=== PATIENT | female | born 1960 ===

== ENCOUNTER 2017-11-14 11:00 | Inpatient (IN) | payer OTHER ==
--- NOTE | 2017-11-14 11:57 | ED PDOC ---
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 Patient reports she was diagnosed with gastritis 2 weeks ago with upper epigastric abdominal pain. patient was prescribed unknown antibiotics by primary care doctor and antibiotics has recently completed its course. Patient has reported having specific left sided abdominal pain in the last five days that is constant and worse with eater. Patient notes feeling nausea when eating and dizziness but no diarrhea. Patient denies any fever, chills, shortness of br eath, chest pain, diarrhea, vomiting, urinary symptoms, back pain, neck pain, headache, or any other complaints. Time/Duration: Other (a few days ago) Symptom Onset: Gradual Symptom Course: Unchanged Activities at Onset: Light <Callie Quispe - Last Filed: 11/17/17 08:21> <Haider Chamorro - Last Filed: 11/17/17 16:03> - General Chief Complaint: Abdominal Pain Time Seen by Provider: 11/14/17 11:27 Past Medical History - Provider Review Nursing Documentation Reviewed: Yes - Cardiac Hx Cardiac Disorders: No - Pulmonary Hx Respiratory Disorders: No - Neurological Hx Neurological Disorder: No - HEENT Hx HEENT Disorder: No - Renal Hx Renal Disorder: No - Endocrine/Metabolic Hx Endocrine Disorders: No - Hematological/Oncological Hx Blood Disorders: No - Integumentary Hx Dermatological Disorder: No - Musculoskeletal/Rheumatological Hx Musculoskeletal Disorders: No - Gastrointestinal Hx Gastrointestinal Disorders: Yes Hx Gastritis: Yes - Genitourinary/Gynecological Hx Genitourinary Disorders: No - Psychiatric Hx Psychophysiologic Disorder: No Hx Substance Use: No - Surgical History Hx Section: Yes Hx Hysterectomy: Yes <Callie Quispe - Last Filed: 11/17/17 08:21> Family/Social History - Physician Review Nursing Documentation Reviewed: Yes Family/Social History: Unknown Family HX Smoking Status: Never Smoked Hx Alcohol Use: No Hx Substance Use: No <Callie Quispe - Last Filed: 11/17/17 08:21> Allergies/Home Meds <Callie Quispe - Last Filed: 11/17/17 08:21> <Haider Chamorro - Last Filed: 11/17/17 16:03> Allergies/Adverse Reactions: Allergies No Known Allergies Allergy (Verified 11/14/17 11:18) Home Medications: Home Meds Medication Instructions Recorded Confirmed Unobtainable 11/14/17 11/14/17 Review of Systems - Physician Review All systems were reviewed & negative as marked: Yes - Review of Systems Constitutional: absent: Fevers, Night Sweats Respiratory: absent: SOB Cardiovascular: absent: Chest Pain Gastrointestinal: Abdominal Pain (+left sided abdominal pain), Nausea. absent: Diarrhea, Vomiting Genitourinary Female: absent: Urine Output Changes Musculoskeletal: absent: Back Pain, Neck Pain Neurological: Dizziness. absent: Headache <Callie Quispe - Last Filed: 11/17/17 08:21> Physical Exam - Physical Exam Narrative Physical Exam (Text): 11/14/17 11:58 Head: Atraumatic. Normocephalic. Eyes: PERRL. EOMI. Conjunctivae are not pale. ENT: Mucous membranes are moist and intact. Oropharynx is clear and symmetric. Neck: Supple. Full ROM. No JVD. No lymphadenopathy. Cardiovascular: Regular rate. Regular rhythm. No murmurs, rubs, or gallops. Distal pulses are 2+ and symmetric. Pulmonary/Chest: No evidence of respiratory distress. Clear to auscultation bilaterally. No wheezing, rales or rhonchi. Abdominal: Focal lower left quadrant abdominal pain with deep palpation but no rebound or gaurding. No epigastric pain currently. Back: No CVA tenderness. Extremities: No edema. No cyanosis. No clubbing. Full range of motion in all extremities. No calf tenderness. Skin: Skin is warm and dry. No petechiae. No purpura. Neurological: Alert, awake, and oriented to person, place, time, and situation. Normal speech. Psychiatric: Good eye contact. Normal interaction, affect, and behavior. Vital Signs Reviewed: Yes Vital Signs Temp Pulse Resp BP Pulse Ox 11/14/17 11:18 98.7 F 91 H 16 118/76 95 Temperature: Afebrile Blood Pressure: Normal Pulse: Tachycardic Respiratory Rate: Normal Appearance: Positive for: Well-Appearing, Non-Toxic, Comfortable Pain Distress: None Mental Status: Positive for: Alert and Oriented X 3 <Callie Quispe - Last Filed: 11/17/17 08:21> Vital Signs Temp Pulse Resp BP Pulse Ox 11/14/17 18:02 98 F 84 18 131/71 98 11/14/17 17:07 98 F 77 18 128/77 98 11/14/17 16:43 80 18 134/78 96 11/14/17 14:33 98 F 77 18 128/74 97 11/14/17 11:18 98.7 F 91 H 16 118/76 95 <TorreyfredyHaider L - Last Filed: 11/17/17 16:03> Medical Decision Making ED Course and Treatment: 11/14/17 11:54 Impression: 56 year old female presenting to the emergency department complaining of left abdominal pain after several weeks of epigastric pain. Differential Diagnosis included but are not limited to: gastroenteritis vs. diverticulitis vs. gastritis Plan: -- CT of Abdomen and Pelvis -- Labs -- Pepcid -- IV fluids -- Urinalysis -- Reassess and disposition Progress Notes: bartender helper at bedside for initial exam, approved by patient. Patient on exam with focal llq abdominal pain and mild epigastric pain. Based on persistence of pain and tenderness noted on exam, ct ordered. 11/14/17 14:49 Procedure: CT Abdomen and Pelvis with contrast Impression: There is a large irregular poorly defined hypodense mass in the right lobe of the liver adjacent to the gallbladder. This measures 47 x 52 x 73 mm in size. This does not have the features of hemangioma. There are no prior studies for comparison. Follow-up is recommended to rule out malignancy. Clinical correlation is suggested. 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 There are also densities in the gallbladder consistent with stones. Dictator: Javier Luis CT findings reviewed with patient with motor tune up specialist. Ultrasound ordered. Pain is persistent, but no rebound or guarding. Procedure: Abdomen Ultrasound Impression: Nodular hepatic contour; correlate clinically for cirrhosis. Heterogeneous hepatic parenchyma. Indeterminate 5.0 x 6.5 x 5.9 cm right hepatic lobe mass; malignant neoplasm must be excluded. Right-sided hydronephrosis. 2.8 x 2.6 x 3.0 cm right lower pole cyst. Gallstones and/or gallbladder wall calcifications. Gallbladder sludge. Gallbladder wall thickening/pericholecystic edema measuring approximately 4 mm. Negative sonographic Lockett's sign as assessed by the highway traffic control technician. Correlate clinically. Dictator: Amaris Baltazar MD I reviewed patient's labs, ct scan, and need for further evaluation of this. Differential diagnosis reviewed with patient. Airport Attendant present. Case d/w hospitalist service, Dr. Wilson accepts patient to her service. <Callie Quispe - Last Filed: 11/17/17 08:21> ED Course and Treatment: 11/17/17 16:03 I was not involved in the care of this patient. I am unable to take my name of this list on [employer]. I am signed it just to take it off my list. - Lab Interpretations Lab Results: 11/14/17 12:31 11/14/17 12:31 Lab Results 11/14/17 12:31: Hemoglobin A1c 7.1 H 11/14/17 12:31: Amylase 55, Lipase 130 11/14/17 12:31: Sodium 140, Potassium 3.8, Chloride 102, Carbon Dioxide 26, Anion Gap 16, BUN 11, Creatinine 0.5 L, Est GFR ( Amer) > 60, Est GFR (Non-Af Amer) > 60, Random Glucose 94, Calcium 9.2, Total Bilirubin 0.7, AST 37 H, ALT 33, Alkaline Phosphatase 241 H, Total Protein 8.1, Albumin 4.2, Globulin 3.9, Albumin/Globulin Ratio 1.1 11/14/17 12:31: Urine Color Yellow, Urine Appearance Clear, Urine pH 6.0, Ur Specific Nicasio >= 1.030, Urine Protein 30 H, Urine Glucose (UA) Negative, Urine Ketones Negative, Urine Blood Trace-lysed H, Urine Nitrate Negative, Urine Bilirubin Negative, Urine Urobilinogen 4.0 H, Ur Leukocyte Esterase Negative, Urine RBC 2 - 5, Urine WBC 0 - 2, Ur Epithelial Cells 4 - 5, Amorphous Sediment Few, Urine Bacteria Many, Urine Other Uyeast 11/14/17 12:31: WBC 10.1, RBC 4.24, Hgb 12.5, Hct 38.2, MCV 90.1, MCH 29.5, MCHC 32.7, RDW 12.1, Plt Count 322, MPV 8.9, Gran % 66.8, Lymph % (Auto) 20.1 L, [place] % (Auto) 11.3 H, Eos % (Auto) 1.6, Baso % (Auto) 0.2, Gran # 6.73 H, Lymph # (Auto) 2.0, [place] # (Auto) 1.1 H, Eos # (Auto) 0.2, Baso # (Auto) 0.02 - RAD Interpretation Radiology Orders: 11/14/17 11:53 ABD & PELVIS IV CONTRAST ONLY [CT] Stat 11/14/17 14:10 ABDOMEN COMPLETE [US] Stat - Medication Orders Current Medication Orders: Acetaminophen (Tylenol 325mg Tab) 650 mg PO Q4 PRN PRN Reason: Pain, Mild (1-3) Docusate Sodium (Colace) 100 mg PO BID [facility] Last Admin: 11/17/17 09:59 Dose: 100 mg Last Bowel Movement Document 11/17/17 09:59 SES (Rec: 11/17/17 09:59 SES [facility] [id number]) Last Bowel Movement Last Bowel Movement 11/14/17 Ceftriaxone Sodium (Rocephin 1 Gram Ivpb) 1 gm in 100 mls @ 100 mls/hr IVPB DAILY [facility]; Protocol Last Admin: 11/17/17 10:00 Dose: 100 mls/hr eMAR Start Stop Document 11/17/17 10:00 SES (Rec: 11/17/17 10:00 SES [id number]) Intravenous Solution Start Date 11/17/17 Start Time 10:00 End Date 11/17/17 End time 11:00 Total Infusion Time 60 Sodium Chloride (Sodium Chloride 0.45%) 1,000 mls @ 80 mls/hr IV .[id number] [facility] Stop: 11/18/17 08:00 Metronidazole (Flagyl) 500 mg PO Q8H IVONNE; Protocol Last Admin: 11/17/17 10:00 Dose: 500 mg Morphine Sulfate (Morphine) 1 mg IVP Q6H PRN PRN Reason: Pain, severe (8-10) Last Admin: 11/16/17 22:41 Dose: 1 mg MAR Pain Assessment Document 11/16/17 22:41 [facility] (Rec: 11/16/17 22:41 [id number]) Pain Reassessment Is this a pain reassessment? No Sleep Is patient sleeping during reassessment? No Presence of Pain Presence of Pain Yes Pain Scale Used Protocol: PSCALES Pain Scale Used Numeric Description Intensity of Pain at present 7 IVP Administration Document 11/16/17 22:41 [facility] (Rec: 11/16/17 22:41 [facility] [id number]) Charges for Administration # of IVP Administrations 1 Re-Assess: MAR Pain Assessment Document 11/16/17 23:41 [facility] (Rec: 11/17/17 07:43 [facility] [id number]) Pain Reassessment Is this a pain reassessment? No Sleep Is patient sleeping during reassessment? No Presence of Pain Presence of Pain No Ondansetron HCl (Zofran Inj) 4 mg IVP Q8H PRN PRN Reason: Nausea/Vomiting Oxycodone/Acetaminophen (Percocet 5/325 Mg Tab) 1 tab PO Q4H PRN PRN Reason: Pain, moderate (4-7) Stop: 11/20/17 15:30 Pantoprazole Sodium (Protonix Ec Tab) 40 mg PO 0600 IVONNE Last Admin: 11/17/17 05:32 Dose: 40 mg Discontinued Medications Enoxaparin Sodium (Lovenox) 40 mg SC DAILY [facility]; Protocol Last Admin: 11/15/17 10:19 Dose: 40 mg Subcutaneous Administrations Document 11/15/17 10:19 AJ (Rec: 11/15/17 10:19 [id number]) Injection Site MAR Injection Site Right Abdomen Charges for Administration # of Subcutaneous Administrations 1 Famotidine (Pepcid) 20 mg IVP STAT STA Stop: 11/14/17 11:54 Last Admin: 11/14/17 12:27 Dose: 20 mg IVP Administration Document 11/14/17 12:27 EAR (Rec: 11/14/17 12:27 EAR [id number]) Charges for Administration # of IVP Administrations 1 Sodium Chloride (Sodium Chloride 0.9%) 1,000 mls @ 100 mls/hr IV .Q10H IVONNE Last Admin: 11/17/17 01:15 Dose: 100 mls/hr eMAR Start Stop Document 11/17/17 01:15 [facility] (Rec: 11/17/17 01:15 [facility] [id number]) Intravenous Solution Start Date 11/17/17 Start Time 01:15 Metronidazole (Flagyl) 500 mg in 100 mls @ 100 mls/hr IV ONCE ONE; Protocol Stop: 11/14/17 17:19 Last Admin: 11/14/17 18:00 Dose: 100 mls/hr eMAR Start Stop Document 11/14/17 18:00 EAR (Rec: 11/14/17 18:00 EAR [id number]) Intravenous Solution Start Date 11/14/17 Start Time 18:00 End Date 11/14/17 End time 19:00 Total Infusion Time 60 Ceftriaxone Sodium (Rocephin 1 Gram Ivpb) 1 gm in 100 mls @ 200 mls/hr IVPB ONCE STA; Protocol Stop: 11/14/17 16:49 Last Admin: 11/14/17 17:01 Dose: 200 mls/hr eMAR Start Stop Document 11/14/17 17:01 EAR (Rec: 11/14/17 17:02 EAR [id number]) Intravenous Solution Start Date 11/14/17 Start Time 17:01 End Date 11/14/17 End time 17:35 Total Infusion Time 34 <Haider Chamorro - Last Filed: 11/17/17 16:03> - Scribe Statement The provider has reviewed the documentation as recorded by the Su Yanes All medical record entries made by the Abhilashibe were at my direction and personally dictated by me. I have reviewed the chart and agree that the record accurately reflects my personal performance of the history, physical exam, medical decision making, and the department course for this patient. I have also personally directed, reviewed, and agree with the discharge instructions and disposition <Callie Quispe - Last Filed: 11/17/17 08:21> Disposition/Present on Arrival - Present on Arrival Any Indicators Present on Arrival: No History of DVT/PE: No History of Uncontrolled Diabetes: No Urinary Catheter: No History of Decub. Ulcer: No History Surgical Site Infection Following: None - Disposition Have Diagnosis and Disposition been Completed?: Yes Disposition Time: 13:30 Patient Plan: Admission <Callie Quispe - Last Filed: 11/17/17 08:21> <Haider Chamorro - Last Filed: 11/17/17 16:03> - Disposition Diagnosis: Abdominal pain, Abdominal mass Disposition: HOSPITALIZED Patient Problems: Current Active Problems Problem Status Onset Abdominal pain Acute Abdominal mass Acute Condition: FAIR
[2017-11-14] MEDS: Sodium Chloride 0.9% 1,000 ML IV SCH ×2 (12:26→21:46)
[2017-11-14] MEDS ORDERED: Iohexol 350 MG/100 ML VIAL ONE (12:41)
[2017-11-14 12:45] LABS: ALB/GLOB RATIO 1.1 (1.1-1.8); ALBUMIN 4.2 g/dL (3.0-4.8); ALT/SGPT 33 U/L (7-56); AST/SGOT 37 U/L (14-36); BLOOD UREA NITROGEN 11 mg/dL (7-21); CALCIUM 9.2 mg/dL (8.4-10.5); GFR NON-AFRICAN AMERICAN > 60
[2017-11-14 12:48] LABS: BASO # 0.02 K/mm3 (0.0-2.0); BASO % 0.2 % (0.0-3.0); EOS # 0.2 (0.0-0.7); EOS % 1.6 % (1.5-5.0); GRAN # 6.73 (1.4-6.5); GRAN % 66.8 % (50.0-68.0); HEMOGLOBIN 12.5 g/dL (12.0-16.0); LYMPH % 20.1 % (22.0-35.0); MEAN CELL VOLUME 90.1 fl (80.0-105.0); MEAN CORPUSCULAR HEMOGLOBIN 29.5 pg (25.0-35.0); MEAN CORPUSCULAR HGB CONC 32.7 g/dl (31.0-37.0); MEAN PLATELET VOLUME 8.9 fl (7.0-11.0); MONO # 1.1 (0.1-0.6); MONO % 11.3 % (1.0-6.0); RBC 4.24 10^6/uL (3.5-6.1); RED CELL DISTRIBUTION WIDTH 12.1 % (11.5-14.5); WHITE BLOOD COUNT 10.1 10^3/ul (4.5-11.0)
[2017-11-14 12:51] LABS: URINE BILIRUBIN NEGATIVE (NEGATIVE); URINE BLOOD TRACE-LYSED (NEGATIVE); URINE GLUCOSE (UA) NEGATIVE (NEGATIVE); URINE LEUKOCYTE ESTERASE NEGATIVE Leu/uL (NEGATIVE); URINE PROTEIN 30 mg/dL (<30 mg/dL)
[2017-11-14 12:55] LABS: URINE COLOR YELLOW (YELLOW)
[2017-11-14 12:56] LABS: URINE APPEARANCE CLEAR (CLEAR)
[2017-11-14 12:59] LABS: URINE AMORPHOUS SEDIMENT FEW; URINE BACTERIA MANY (NEG); URINE WBC 0 - 2 /hpf (0-6)
--- NOTE | 2017-11-14 14:01 | CT ---
Date of service: 11/14/2017 PROCEDURE: CT Abdomen and Pelvis with contrast HISTORY: llq abdominal pain COMPARISON: None. TECHNIQUE: Contrast dose: 100 cc of Omni 350 Radiation dose: Total exam DLP = 845 mGy-cm. This CT exam was performed using one or more of the following dose reduction techniques: Automated exposure control, adjustment of the mA and/or kV according to patient size, and/or use of iterative reconstruction technique. FINDINGS: LOWER THORAX: Bibasilar linear infiltrates LIVER: There is a large irregular poorly defined hypodense mass in the right lobe of the liver adjacent to the gallbladder. This measures 47 x 52 x 73 mm in size. This does not have the features of hemangioma. There are no prior studies for comparison. Follow-up is recommended to rule out malignancy. Clinical correlation is suggested. 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 There are also densities in the gallbladder consistent with stones. PANCREAS: Unremarkable. No gross lesion or ductal dilatation. SPLEEN: Unremarkable. ADRENALS: Unremarkable. No mass. KIDNEYS AND URETERS: Unremarkable. No hydronephrosis. No solid mass. VASCULATURE: Unremarkable. No aortic aneurysm. BOWEL: Unremarkable. No obstruction. No gross mural thickening. APPENDIX: Normal appendix. PERITONEUM: Unremarkable. No free fluid. No free air. LYMPH NODES: Unremarkable. No enlarged lymph nodes. BLADDER: Unremarkable. REPRODUCTIVE: Unremarkable. BONES: No acute fracture. OTHER FINDINGS: None. IMPRESSION: There is a large irregular poorly defined hypodense mass in the right lobe of the liver adjacent to the gallbladder. This measures 47 x 52 x 73 mm in size. This does not have the features of hemangioma. There are no prior studies for comparison. Follow-up is recommended to rule out malignancy. Clinical correlation is suggested. 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 There are also densities in the gallbladder consistent with stones.
--- NOTE | 2017-11-14 15:39 | CP.PCM.HP ---
<Armando Pérez - Last Filed: 11/14/17 17:28> History of Present Illness - History of Present Illness History of Present Illness: Armando Pérez DO. PGY1 H&P for Dr Katie Jones: abdominal pain 56 y/o female, with PMH of GERD, gastritis, presents to the ED with 4 days of LUQ and epigastric abdomial pain, sharp, constant, radiates to the back, progressive, now 7/10, worsens by food and no alleviating factors. Patient was diagnosed with gastritis with positive urea breath test 2 weeks ago. Patient received triple therapy for H pylori infection that has recently completed 4 days ago. Patient did not received medical therapy for the pain. Patient admits to nausea but no diarrhea. Can't tolerate food in her stomach. She's never had EGD/colonscopy. She denied black/dark stool, hematochezia, melena, hemoptysis, hematemesis, change in stool caliber, bowel movement changes, use of NSAID, weight loss. Patient denies fever, chills, shortness of breath, chest pain, diarrhea, vomiting, urinary symptoms, back pain, neck pain, headache, or any other complaints. 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 #[phone] Present on Admission - Present on Admission Any Indicators Present on Admission: No Past Patient History - Past Social History Smoking Status: Never Smoked - CARDIAC Hx Cardiac Disorders: No - PULMONARY Hx Respiratory Disorders: No - NEUROLOGICAL Hx Neurological Disorder: No - HEENT Hx HEENT Problems: No - RENAL Hx Chronic Kidney Disease: No - ENDOCRINE/METABOLIC Hx Endocrine Disorders: No - HEMATOLOGICAL/ONCOLOGICAL Hx Blood Disorders: No - INTEGUMENTARY Hx Dermatological Problems: No - MUSCULOSKELETAL/RHEUMATOLOGICAL Hx Musculoskeletal Disorders: No - GASTROINTESTINAL Hx Gastrointestinal Disorders: Yes Hx Gastritis: Yes - GENITOURINARY/GYNECOLOGICAL Hx Genitourinary Disorders: No - PSYCHIATRIC Hx Psychophysiologic Disorder: No Hx Substance Use: No - SURGICAL HISTORY Hx Section: Yes Hx Hysterectomy: Yes Meds Allergies/Adverse Reactions: Allergies Allergy/AdvReac Type Severity Reaction Status Date / Time No Known Allergies Allergy Verified 11/14/17 11:18 Physical Exam - Constitutional Appears: Well, No Acute Distress - Head Exam Head Exam: ATRAUMATIC, NORMOCEPHALIC - Eye Exam Eye Exam: EOMI, Normal appearance, PERRL Pupil Exam: NORMAL ACCOMODATION, PERRL - ENT Exam ENT Exam: Mucous Membranes Moist, Normal Exam - Neck Exam Neck exam: Positive for: Normal Inspection - Respiratory Exam Respiratory Exam: Clear to Auscultation Bilateral, NORMAL BREATHING PATTERN - Cardiovascular Exam Cardiovascular Exam: REGULAR RHYTHM - GI/Abdominal Exam GI & Abdominal Exam: Normal Bowel Sounds, Soft. absent: Tenderness Additional comments: TTP on LUQ and epigastric area - Extremities Exam Extremities exam: Positive for: normal capillary refill, normal inspection, peda l pulses present - Back Exam Back exam: NORMAL INSPECTION - Neurological Exam Neurological exam: Alert, CN II-XII Intact, Normal Gait, Oriented x3, Reflexes Normal - Psychiatric Exam Psychiatric exam: Normal Affect, Normal Mood - Skin Skin Exam: Dry, Intact, Normal Color, Warm Results - Vital Signs Recent Vital Signs: Last Vital Signs Temp 98 F 11/14/17 14:33 Pulse 77 11/14/17 14:33 Resp 18 11/14/17 14:33 BP 128/74 11/14/17 14:33 Pulse Ox 97 11/14/17 14:33 - Labs Result Diagrams: 11/14/17 12:31 11/14/17 12:31 Labs: Laboratory Results - last 24 hr 11/14/17 11/14/17 11/14/17 12:31 12:31 12:31 WBC 10.1 RBC 4.24 Hgb 12.5 Hct 38.2 MCV 90.1 MCH 29.5 MCHC 32.7 RDW 12.1 Plt Count 322 MPV 8.9 Gran % 66.8 Lymph % (Auto) 20.1 L [place] % (Auto) 11.3 H Eos % (Auto) 1.6 Baso % (Auto) 0.2 Gran # 6.73 H Lymph # (Auto) 2.0 [place] # (Auto) 1.1 H Eos # (Auto) 0.2 Baso # (Auto) 0.02 Sodium 140 Potassium 3.8 Chloride 102 Carbon Dioxide 26 Anion Gap 16 BUN 11 Creatinine 0.5 L Est GFR ( Amer) > 60 Est GFR (Non-Af Amer) > 60 Random Glucose 94 Calcium 9.2 Total Bilirubin 0.7 AST 37 H ALT 33 Alkaline Phosphatase 241 H Total Protein 8.1 Albumin 4.2 Globulin 3.9 Albumin/Globulin Ratio 1.1 Urine Color Yellow Urine Appearance Clear Urine pH 6.0 Ur Specific [place] >= 1.030 Urine Protein 30 H Urine Glucose (UA) Negative Urine Ketones Negative Urine Blood Trace-lysed H Urine Nitrate Negative Urine Bilirubin Negative Urine Urobilinogen 4.0 H Ur Leukocyte Esterase Negative Urine RBC 2 - 5 Urine WBC 0 - 2 Ur Epithelial Cells 4 - 5 Amorphous Sediment Few Urine Bacteria Many Urine Other Uyeast Assessment & Plan - Assessment and Plan (Free Text) Assessment: 56 year old female presenting to the emergency department complaining of left abdominal pain. CT Abdomen and Pelvis with contrast showed right hepatic lobe mass, calcification of the gallbladder wall consistent with a porcelain gallbladder with stones. Patient admitted for Plan: Abdominal pain patient afebrile, no leukocytosis, hemodynamically stable CT A/P w/contrast: showed right hepatic lobe mass, calcification of the gallbladder wall consistent with a porcelain gallbladder with stones Abd U/S: heterogeneous hepatic parenchyma 5x6.5x5.9. gallbladder thickening continue rocephin, flagyl amylase, lipase, hepatitis panel ordered IVF: NS @100 cc/hr zofran for nausea EKG NSR GI consulted surgery consulted plan to do liver biopsy on Friday by IR Abnormal UA findings: no urinary symptoms UA:+blood, urobilinogen, bacteria, yeast urine culture Prophylaxis: GI ppx: pantoprazole DVT ppx: SCD Clear liquid diet Case reviewed and Dr Wilson <Arabella Wilson - Last Filed: 11/15/17 18:12> Results - Vital Signs Recent Vital Signs: Last Vital Signs Temp 98.8 F 11/15/17 14:40 Pulse 85 11/15/17 14:40 Resp 18 11/15/17 14:40 BP 125/69 11/15/17 14:40 Pulse Ox 93 L 11/15/17 14:40 - Labs Result Diagrams: 11/15/17 05:00 11/15/17 05:00 Labs: Laboratory Results - last 24 hr 11/14/17 11/15/17 11/15/17 17:55 05:00 05:00 WBC RBC Hgb Hct MCV MCH MCHC RDW Plt Count MPV Gran % Lymph % (Auto) [place] % (Auto) Eos % (Auto) Baso % (Auto) Gran # Lymph # (Auto) [place] # (Auto) Eos # (Auto) Baso # (Auto) PT 14.4 H INR 1.26 APTT 32.5 Sodium 138 Potassium 3.8 Chloride 103 Carbon Dioxide 26 Anion Gap 14 BUN 6 L Creatinine 0.5 L Est GFR ( Amer) > 60 Est GFR (Non-Af Amer) > 60 Random Glucose 123 H Calcium 9.0 Phosphorus 4.0 Magnesium 2.2 Total Bilirubin 0.8 AST 36 ALT 26 Alkaline Phosphatase 238 H Total Protein 7.7 Albumin 4.0 Globulin 3.7 Albumin/Globulin Ratio 1.1 Triglycerides 132 Cholesterol 124 L LDL Cholesterol Direct 78 HDL Cholesterol 23 L Alpha Fetoprotein Carcinoembryonic Ag 466.0 H CA 19-9 Antigen < 1.4 11/15/17 11/15/17 05:00 12:00 WBC 10.1 RBC 4.25 Hgb 12.5 Hct 38.0 MCV 89.4 MCH 29.4 MCHC 32.9 RDW 12.1 Plt Count 314 MPV 9.1 Gran % 68.9 H Lymph % (Auto) 18.4 L [place] % (Auto) 10.9 H Eos % (Auto) 1.6 Baso % (Auto) 0.2 Gran # 6.98 H Lymph # (Auto) 1.9 [place] # (Auto) 1.1 H Eos # (Auto) 0.2 Baso # (Auto) 0.02 PT INR APTT Sodium Potassium Chloride Carbon Dioxide Anion Gap BUN Creatinine Est GFR ( Amer) Est GFR (Non-Af Amer) Random Glucose Calcium Phosphorus Magnesium Total Bilirubin AST ALT Alkaline Phosphatase Total Protein Albumin Globulin Albumin/Globulin Ratio Triglycerides Cholesterol LDL Cholesterol Direct HDL Cholesterol Alpha Fetoprotein 3.5 Carcinoembryonic Ag CA 19-9 Antigen Attending/Attestation - Attestation I have personally seen and examined this patient.: Yes I have fully participated in the care of the patient.: Yes I have reviewed all pertinent clinical information: Yes Notes (Text): 11/15/17 18:07 Attending note; Patient seen and examined with resident in ER. Patient is alert and awake. Complaining of abdominal pain. Denies any nausea, vomiting. Denies any urinary, bowel symptoms. Patient is a 56 -year-old female, with PMH of GERD, gastritis, presents to the ED with 4 days of LUQ and epigastric abdomial pain, sharp, constant, radiates to the back, progressive, now 7/10, worsens by food and no alleviating factors. Patient was diagnosed with gastritis with positive urea breath test 2 weeks ago. Patient received triple therapy for H pylori infection that has recently completed 4 days ago.But patient continues to have abdominal discomfort. Ultrasound done in the ER showed thickening of the gallbladder wall and liver mass. CT scan showed right hepatic lobe mass, calcification of the gallbladder wall consistent with a porcelain gallbladder with stones. CT scan reviewed with Dr. Jamshid Conteh. Plan for liver biopsy on Friday. surgery evaluation requested. Started on IV Rocephin and Flagyl. started on a clear liquid diet. Advance as tolerated. GI / DVT prophylaxis. upon discharge patient will be referred to [facility] [place] clinic.
--- NOTE | 2017-11-14 16:18 | US ---
HISTORY: upper abdominal pain COMPARISON: CT abdomen and pelvis with IV contrast performed 11/14/17 TECHNIQUE: Sonographic evaluation of the abdomen. FINDINGS: LIVER: Measures 16.8 cm in sagittal dimension. Nodular hepatic contour. Heterogeneous hepatic parenchyma. 5.0 x 6.5 x 5.9 cm heterogeneous mass noted within the right hepatic lobe. The main portal vein appears patent with normal directional flow. No intrahepatic bile duct dilatation. GALLBLADDER: Gallstones and/or gallbladder wall calcifications. Gallbladder sludge. Gallbladder wall thickening/pericholecystic edema measuring approximately 4 mm. Negative sonographic Lockett's sign as assessed by the strategic marketing leader. COMMON BILE DUCT: Measures 6 mm. PANCREAS: Not well visualized. RIGHT KIDNEY: Measures 13.9 x 6.5 x 5.6 cm. Right-sided hydronephrosis. 2.8 x 2.6 x 3.0 cm lower pole cyst. LEFT KIDNEY: Measures 13.7 x 5.6 x 5.2 cm. SPLEEN: Measures approximately 12.4 cm. AORTA: Not well-visualized. IVC: Not well-visualized. OTHER FINDINGS: None. IMPRESSION: Nodular hepatic contour; correlate clinically for cirrhosis. Heterogeneous hepatic parenchyma. Indeterminate 5.0 x 6.5 x 5.9 cm right hepatic lobe mass; malignant neoplasm must be excluded. Right-sided hydronephrosis. 2.8 x 2.6 x 3.0 cm right lower pole cyst. Gallstones and/or gallbladder wall calcifications. Gallbladder sludge. Gallbladder wall thickening/pericholecystic edema measuring approximately 4 mm. Negative sonographic Lockett's sign as assessed by the strategic marketing leader. Correlate clinically.
[2017-11-14] MEDS ORDERED: cefTRIAXone 1 gm 1 GM/100 ML BAG IVPB STA (16:20)
[2017-11-14] MEDS ORDERED: metroNIDAZOLE IV 500 mg/100 ml 500 MG/100 ML BAG IV ONE (16:20)
[2017-11-14 17:21] LABS: AMYLASE 55 U/L (35-125); LIPASE 130 U/L (23-300)
[2017-11-14 18:13] LABS: INR 1.26; PARTIAL THROMBOPLASTIN TIME 32.5 Seconds (25.1-36.5); PROTHROMBIN TIME 14.4 SECONDS (9.4-12.5)
--- NOTE | 2017-11-14 19:06 | CP.PCM.CON ---
History of Present Illness - History of Present Illness History of Present Illness: Consult note for Dr. Bellamy Consulted for Liver Mass Mrs. Montes De Oca is a 56 yr old female with PMH Gastritis and GERD who presents to [facility] with 4 days of nausea and LUQ pain. She was recently diagnosed with H.pylori gastritis. INcidentally on CT scan she was found to have a large irregular hepatic mass not consistent with hemangioma which appears to be located in segments 5 &6 of the liver directly superior to the porcelain gallb ladder also found on imaging. She otherwise denies HERRERA, CP, SOB, changes in stool, dysuria and extremity pain. PMH: gastritis with H pylori infection, GERD PSH: x3, hysterectomy FH: non contributory SocH: denied smoking, etoh, drug use Meds: dicyclomine 10 tid ALL: NKDA PMD: Dr Trujillo Review of Systems - Review of Systems All systems: reviewed and no additional remarkable complaints except Review of Systems: as per HPI Past Patient History - Past Social History Smoking Status: Never Smoked - CARDIAC Hx Cardiac Disorders: No - PULMONARY Hx Respiratory Disorders: No - NEUROLOGICAL Hx Neurological Disorder: No - HEENT Hx HEENT Problems: No - RENAL Hx Chronic Kidney Disease: No - ENDOCRINE/METABOLIC Hx Endocrine Disorders: No - HEMATOLOGICAL/ONCOLOGICAL Hx Blood Disorders: No - INTEGUMENTARY Hx Dermatological Problems: No - MUSCULOSKELETAL/RHEUMATOLOGICAL Hx Musculoskeletal Disorders: No - GASTROINTESTINAL Hx Gastrointestinal Disorders: Yes Hx Gastritis: Yes - GENITOURINARY/GYNECOLOGICAL Hx Genitourinary Disorders: No - PSYCHIATRIC Hx Psychophysiologic Disorder: No Hx Substance Use: No - SURGICAL HISTORY Hx Section: Yes Hx Hysterectomy: Yes Meds Allergies/Adverse Reactions: Allergies Allergy/AdvReac Type Severity Reaction Status Date / Time No Known Allergies Allergy Verified 11/14/17 11:18 - Medications Medications: Current Medications Sodium Chloride (Sodium Chloride 0.9%) 1,000 mls @ 100 mls/hr IV .Q10H [facility] Last Admin: 11/14/17 12:26 Dose: 100 mls/hr Ceftriaxone Sodium (Rocephin 1 Gram Ivpb) 1 gm in 100 mls @ 100 mls/hr IVPB DAILY [facility]; Protocol Metronidazole (Flagyl) 500 mg PO Q8H [facility]; Protocol Ondansetron HCl (Zofran Inj) 4 mg IVP Q8H PRN PRN Reason: Nausea/Vomiting Pantoprazole Sodium (Protonix Ec Tab) 40 mg PO 0600 [facility] Physical Exam - Constitutional Appears: Well, Non-toxic, No Acute Distress (sitting eating dinner comfortably) - Head Exam Head Exam: ATRAUMATIC, NORMOCEPHALIC - Eye Exam Eye Exam: EOMI - ENT Exam ENT Exam: Mucous Membranes Moist - Respiratory Exam Respiratory Exam: NORMAL BREATHING PATTERN - Cardiovascular Exam Cardiovascular Exam: REGULAR RHYTHM - GI/Abdominal Exam GI & Abdominal Exam: Guarding (LUQ), Normal Bowel Sounds, Soft, Tenderness (LUQ mild). absent: Distended, Organomegaly, Rebound, Rigid - Extremities Exam Extremities exam: Positive for: pedal pulses present. Negative for: calf tenderness, pedal edema, tenderness - Neurological Exam Neurological exam: Alert, Oriented x3 - Psychiatric Exam Psychiatric exam: Normal Affect, Normal Mood - Skin Skin Exam: Dry, Intact, Normal Color, Warm Results - Vital Signs Recent Vital Signs: Last Vital Signs Temp 99.2 F 11/14/17 18:52 Pulse 84 11/14/17 18:52 Resp 18 11/14/17 18:52 BP 133/78 11/14/17 18:52 Pulse Ox 95 11/14/17 18:52 - Labs Result Diagrams: 11/14/17 12:31 11/14/17 12:31 Labs: Laboratory Results - last 24 hr 11/14/17 11/14/17 11/14/17 12:31 12:31 12:31 WBC 10.1 RBC 4.24 Hgb 12.5 Hct 38.2 MCV 90.1 MCH 29.5 MCHC 32.7 RDW 12.1 Plt Count 322 MPV 8.9 Gran % 66.8 Lymph % (Auto) 20.1 L [place] % (Auto) 11.3 H Eos % (Auto) 1.6 Baso % (Auto) 0.2 Gran # 6.73 H Lymph # (Auto) 2.0 [place] # (Auto) 1.1 H Eos # (Auto) 0.2 Baso # (Auto) 0.02 PT INR APTT Sodium 140 Potassium 3.8 Chloride 102 Carbon Dioxide 26 Anion Gap 16 BUN 11 Creatinine 0.5 L Est GFR ( Amer) > 60 Est GFR (Non-Af Amer) > 60 Random Glucose 94 Calcium 9.2 Total Bilirubin 0.7 AST 37 H ALT 33 Alkaline Phosphatase 241 H Total Protein 8.1 Albumin 4.2 Globulin 3.9 Albumin/Globulin Ratio 1.1 Amylase Lipase Urine Color Yellow Urine Appearance Clear Urine pH 6.0 Ur Specific [place] >= 1.030 Urine Protein 30 H Urine Glucose (UA) Negative Urine Ketones Negative Urine Blood Trace-lysed H Urine Nitrate Negative Urine Bilirubin Negative Urine Urobilinogen 4.0 H Ur Leukocyte Esterase Negative Urine RBC 2 - 5 Urine WBC 0 - 2 Ur Epithelial Cells 4 - 5 Amorphous Sediment Few Urine Bacteria Many Urine Other Uyeast 11/14/17 11/14/17 12:31 17:55 WBC RBC Hgb Hct MCV MCH MCHC RDW Plt Count MPV Gran % Lymph % (Auto) [place] % (Auto) Eos % (Auto) Baso % (Auto) Gran # Lymph # (Auto) [place] # (Auto) Eos # (Auto) Baso # (Auto) PT 14.4 H INR 1.26 APTT 32.5 Sodium Potassium Chloride Carbon Dioxide Anion Gap BUN Creatinine Est GFR ( Amer) Est GFR (Non-Af Amer) Random Glucose Calcium Total Bilirubin AST ALT Alkaline Phosphatase Total Protein Albumin Globulin Albumin/Globulin Ratio Amylase 55 Lipase 130 Urine Color Urine Appearance Urine pH Ur Specific [place] Urine Protein Urine Glucose (UA) Urine Ketones Urine Blood Urine Nitrate Urine Bilirubin Urine Urobilinogen Ur Leukocyte Esterase Urine RBC Urine WBC Ur Epithelial Cells Amorphous Sediment Urine Bacteria Urine Other Assessment & Plan - Assessment and Plan (Free Text) Assessment: 56 yr old female with incidental finding of large irregular poorly defined mass measuring 4.7 x 5.2 [address] scan adjacent to a porcelain gallbladder likely in segments 5 & 6 who will be going for biopsy of the lesion on Friday with Interventional radiology. Plan: Incidental Liver Mass: * Pt to go for IR biopsy on Friday, will follow results * serum CEA and CA 19- 9 ordered * will likely need liver protocol CT imaging in the future for surgical planning Gastritis * management as per medical team PPX protonix Lovenox (hold prior to biopsy on friday) - Date & Time Date: 11/14/17 Time: 17:35
--- NOTE | 2017-11-14 23:35 | CARD ---
APPROVED REPORT Date of service: 11/14/2017 EKG Measurement Heart [id number] <Conclusion> Normal sinus rhythm Normal ECG
[2017-11-15] MEDS: Pantoprazole 40 mg EC Tab PO SCH (05:24)
[2017-11-15 05:47] VITALS: BMI 32.9
[2017-11-15 06:26] LABS: BASO # 0.02 K/mm3 (0.0-2.0); BASO % 0.2 % (0.0-3.0); EOS # 0.2 (0.0-0.7); EOS % 1.6 % (1.5-5.0); GRAN # 6.98 (1.4-6.5); GRAN % 68.9 % (50.0-68.0); HEMOGLOBIN 12.5 g/dL (12.0-16.0); LYMPH # 1.9 (1.2-3.4); LYMPH % 18.4 % (22.0-35.0); MEAN CELL VOLUME 89.4 fl (80.0-105.0); MEAN CORPUSCULAR HEMOGLOBIN 29.4 pg (25.0-35.0); MEAN CORPUSCULAR HGB CONC 32.9 g/dl (31.0-37.0); MEAN PLATELET VOLUME 9.1 fl (7.0-11.0); MONO # 1.1 (0.1-0.6); MONO % 10.9 % (1.0-6.0); RBC 4.25 10^6/uL (3.5-6.1); RED CELL DISTRIBUTION WIDTH 12.1 % (11.5-14.5); WHITE BLOOD COUNT 10.1 10^3/ul (4.5-11.0)
[2017-11-15 06:43] LABS: LDL CHOLESTEROL 78 mg/dL (0-129)
[2017-11-15 06:44] LABS: ALB/GLOB RATIO 1.1 (1.1-1.8); ALT/SGPT 26 U/L (7-56); AST/SGOT 36 U/L (14-36); BLOOD UREA NITROGEN 6 mg/dL (7-21); GFR NON-AFRICAN AMERICAN > 60; HDL CHOLESTEROL 23 mg/dL (29-60)
--- NOTE | 2017-11-15 07:08 | CP.PCM.PN ---
<Elisabeth Caraballo - Last Filed: 11/15/17 12:09> Subjective - Date & Time of Evaluation Date of Evaluation: 11/15/17 Time of Evaluation: 07:08 - Subjective Subjective: Pgy3 Progress note for Dr. Wilson Patient seen and examined at bedside with attending and pad hand. Nursing reported no acute events overnight. Patient tolerated CLD this AM and said LUQ abdominal pain had improved. Patient denied acute complaints of fever, chills, headache, dizziness, chest pain, palpitations, SOB, cough, nausea, vomiting, bowel/bladder complaints, pain/swelling in her legs bilaterally. Objective - Vital Signs/Intake and Output Vital Signs (last 24 hours): Temp Pulse Resp BP Pulse Ox 98.5 F 80 18 118/71 93 L 11/14/17 22:00 11/14/17 22:00 11/14/17 22:00 11/14/17 22:00 11/14/17 22:00 - Medications Medications: Current Medications Enoxaparin Sodium (Lovenox) 40 mg SC DAILY [facility]; Protocol Sodium Chloride (Sodium Chloride 0.9%) 1,000 mls @ 100 mls/hr IV .Q10H [facility] Last Admin: 11/14/17 21:46 Dose: 100 mls/hr Ceftriaxone Sodium (Rocephin 1 Gram Ivpb) 1 gm in 100 mls @ 100 mls/hr IVPB DAILY [facility]; Protocol Metronidazole (Flagyl) 500 mg PO Q8H [facility]; Protocol Last Admin: 11/15/17 05:57 Dose: Not Given Ondansetron HCl (Zofran Inj) 4 mg IVP Q8H PRN PRN Reason: Nausea/Vomiting Pantoprazole Sodium (Protonix Ec Tab) 40 mg PO 0600 [facility] Last Admin: 11/15/17 05:24 Dose: 40 mg - Labs Labs: 11/15/17 05:00 11/15/17 05:00 PT 14.4 SECONDS (9.4-12.5) H 11/14/17 17:55 INR 1.26 11/14/17 17:55 APTT 32.5 Seconds (25.1-36.5) 11/14/17 17:55 - Constitutional Appears: Non-toxic, No Acute Distress - Head Exam Head Exam: ATRAUMATIC, NORMAL INSPECTION, NORMOCEPHALIC - Eye Exam Eye Exam: EOMI, Normal appearance, PERRL. absent: Conjunctival injection, Scleral icterus - ENT Exam ENT Exam: Mucous Membranes Moist - Respiratory Exam Respiratory Exam: Clear to Ausculation Bilateral, NORMAL BREATHING PATTERN. absent: Accessory Muscle Use, Rales, Rhonchi, Wheezes, Respiratory Distress - Cardiovascular Exam Cardiovascular Exam: +S1, +S2 - GI/Abdominal Exam GI & Abdominal Exam: Soft, Normal Bowel Sounds. absent: Firm, Guarding, Rigid - Rectal Exam Rectal Exam: Deferred - Extremities Exam Extremities Exam: Normal Capillary Refill, Normal Inspection. absent: Pedal Edema - Neurological Exam Neurological Exam: Alert, Awake, CN II-XII Intact, Oriented x3 - Psychiatric Exam Psychiatric exam: Normal Affect, Normal Mood - Skin Skin Exam: Dry, Intact, Normal Color, Warm Assessment and Plan - Assessment and Plan (Free Text) Assessment: 56yo female PMHx GERD presents with 4 days of LUQ and epigastric abdomial pain. CT A/P showed right hepatic lobe mass, calcification of the gallbladder wall consistent with a porcelain gallbladder with stones. GI and Surgery was consulted and patient admitted to med/surg. Plan: Abdominal pain -CT A/P 11/14: large irregular poorly defined hypodense mass in the right lobe of the liver adjacent to the GB. Measures 47 x 52 x 73mm in in size. No features of hemangioma. 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 There are also densities in the GB consistent with stones. -Abd u/s 11/14: nodular hepatic contour; correlate clinically for cirrhosis. Heterogenous hepatic parenchyma. Indeterminate 5 x 6.5 x 5.9cm R hepatic lobe mass; malignant neoplasm must be excluded. R sided hydronephrosis 2.8 x 2.6 x 3cm R lower pole cyst. Gallstones and/or GB wall calcifications. GB sludge. GB wall thickening/pericholecystic edema measuring 4mm. Negative [place]. -IR biopsy on Friday 11/17- will follow results -will likely need liver protocol CT imaging in the future for surgical planning as per surgical team -CEA: 466 -CA 19-9: pending -AFP: pending -Rocephin and Flagyl IV abx -f/u blood cultures x 2 -f/u acute hep panel -Zofran for nausea -NS@100 -continue liquid diet Asymptomatic UTI -UA:+blood, urobilinogen, bacteria, yeast -f/u urine culture -patient on Rocephin GI ppx: protonix 40mg po qd DVT ppx: Lovenox 40mg sc qd (hold Friday at midnight 11/17), SCDs Diet: CLD Discussed with Dr. Katie Caraballo PGY3 <Arabella Wilson - Last Filed: 11/15/17 18:14> Objective - Vital Signs/Intake and Output Vital Signs (last 24 hours): Temp Pulse Resp BP Pulse Ox 98.8 F 85 18 125/69 93 L 11/15/17 14:40 11/15/17 14:40 11/15/17 14:40 11/15/17 14:40 11/15/17 14:40 Intake and Output: 11/15/17 11/15/17 06:59 18:59 Intake Total 240 Balance 240 - Medications Medications: Current Medications Docusate Sodium (Colace) 100 mg PO BID [facility] Last Admin: 11/15/17 18:02 Dose: 100 mg Sodium Chloride (Sodium Chloride 0.9%) 1,000 mls @ 100 mls/hr IV .Q10H [facility] Last Admin: 11/15/17 18:07 Dose: 100 mls/hr Ceftriaxone Sodium (Rocephin 1 Gram Ivpb) 1 gm in 100 mls @ 100 mls/hr IVPB DAILY [facility]; Protocol Last Admin: 11/15/17 10:19 Dose: 100 mls/hr Metronidazole (Flagyl) 500 mg PO Q8H [facility]; Protocol Last Admin: 11/15/17 18:07 Dose: 500 mg Morphine Sulfate (Morphine) 1 mg IVP Q6H PRN PRN Reason: Pain, severe (8-10) Last Admin: 11/15/17 15:19 Dose: 1 mg Ondansetron HCl (Zofran Inj) 4 mg IVP Q8H PRN PRN Reason: Nausea/Vomiting Pantoprazole Sodium (Protonix Ec Tab) 40 mg PO 0600 [facility] Last Admin: 11/15/17 05:24 Dose: 40 mg - Labs Labs: 11/15/17 05:00 11/15/17 05:00 PT 14.4 SECONDS (9.4-12.5) H 11/14/17 17:55 INR 1.26 11/14/17 17:55 APTT 32.5 Seconds (25.1-36.5) 11/14/17 17:55 Attending/Attestation - Attestation I have personally seen and examined this patient.: Yes I have fully participated in the care of the patient.: Yes I have reviewed all pertinent clinical information, including history, physical exam and plan: Yes Notes (Text): 11/15/17 18:12 Attending note; Patient seen and examined with resident. patient's niece by the bedside. Zipper Sewing Machine Operator used. Patient is alert and awake. Complaining of mild abdominal pain. Denies any nausea, vomiting. Denies any urinary, bowel symptoms. tolerating liquid diet. Patient is a 56 -year-old female, with PMH of GERD, gastritis, presents to the ED with 4 days of LUQ and epigastric abdomial pain, sharp, constant, radiates to the back, progressive, now 7/10, worsens by food and no alleviating factors. Patient was diagnosed with gastritis with positive urea breath test 2 weeks ago. Patient received triple therapy for H pylori infection that has recently completed 4 days ago.But patient continues to have abdominal discomfort. Ultrasound showed thickening of the gallbladder wall and liver mass. CT scan showed right hepatic lobe mass, calcification of the gallbladder wall consistent with a porcelain gallbladder with stones. CT scan reviewed with Dr. Jamshid Conteh. Plan for liver biopsy on Friday. surgery evaluation Appreciated.Started on IV Rocephin and Flagyl. started on a clear liquid diet. Advance as tolerated. GI / DVT prophylaxis. upon discharge patient will be referred to [facility] clinic. 11/15/17 18:14
--- NOTE | 2017-11-15 08:45 | CP.PCM.PN ---
Subjective - Date & Time of Evaluation Date of Evaluation: 11/15/17 Time of Evaluation: 07:05 - Subjective Subjective: Hepatobiliary Surgery progress note for Dr. Bellamy Patient seen and examined this am at bedside. she is resting comfortably and states that her LUQ pain has improved. She is Voiding and having bowel function. She otherwise denies HERRERA, CP, SOB, worsening abdominal pain, dysuria, n/v, extremity pain. Objective - Vital Signs/Intake and Output Vital Signs (last 24 hours): Temp Pulse Resp BP Pulse Ox 97.9 F 77 20 109/68 98 11/15/17 08:01 11/15/17 08:01 11/15/17 08:01 11/15/17 08:01 11/15/17 08:01 - Medications Medications: Current Medications Enoxaparin Sodium (Lovenox) 40 mg SC DAILY [facility]; Protocol Sodium Chloride (Sodium Chloride 0.9%) 1,000 mls @ 100 mls/hr IV .Q10H [facility] Last Admin: 11/14/17 21:46 Dose: 100 mls/hr Ceftriaxone Sodium (Rocephin 1 Gram Ivpb) 1 gm in 100 mls @ 100 mls/hr IVPB DAILY [facility]; Protocol Metronidazole (Flagyl) 500 mg PO Q8H [facility]; Protocol Last Admin: 11/15/17 05:57 Dose: Not Given Ondansetron HCl (Zofran Inj) 4 mg IVP Q8H PRN PRN Reason: Nausea/Vomiting Pantoprazole Sodium (Protonix Ec Tab) 40 mg PO 0600 [facility] Last Admin: 11/15/17 05:24 Dose: 40 mg - Labs Labs: 11/15/17 05:00 11/15/17 05:00 PT 14.4 SECONDS (9.4-12.5) H 11/14/17 17:55 INR 1.26 11/14/17 17:55 APTT 32.5 Seconds (25.1-36.5) 11/14/17 17:55 - Constitutional Appears: Well, Non-toxic, No Acute Distress - Head Exam Head Exam: ATRAUMATIC, NORMOCEPHALIC - Eye Exam Eye Exam: EOMI - ENT Exam ENT Exam: Mucous Membranes Moist - Respiratory Exam Respiratory Exam: NORMAL BREATHING PATTERN - Cardiovascular Exam Cardiovascular Exam: REGULAR RHYTHM - GI/Abdominal Exam GI & Abdominal Exam: Soft, Tenderness (Mild LUQ tenderness). 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 Plan: Incidental Liver Mass: Pt to go for IR biopsy on Friday, will follow results serum CEA and CA 19- 9 ordered will likely need liver protocol CT imaging in the future for surgical planning Gastritis management as per medical team PPX protonix Lovenox (hold prior to biopsy on friday)
[2017-11-15] MEDS ORDERED: Enoxaparin 40 mg Syringe SC SCH (10:00)
[2017-11-15] MEDS: cefTRIAXone 1 gm 1 GM/100 ML BAG IVPB SCH (10:19)
[2017-11-15] MEDS: Sodium Chloride 0.9% 1,000 ML IV SCH ×2 (10:22→18:07)
--- NOTE | 2017-11-15 13:40 | CON ---
DATE: 11/15/2017 HISTORY OF PRESENT ILLNESS: I saw Ms. Montes De Oca this morning. She is a 56-year-old female with past medical history of acid reflux, gastritis and recent H. pylori infection and treatment. Patient indicated onset of abdominal pain, epigastric and left upper quadrant roughly about 3 to 4 days ago associated with nausea and vomiting. No hematochezia, hematemesis, rectal bleeding etc. Patient has never had problems with gallbladder before. At bedside the patient indicated a minimal amount of abdominal pain relative to the day of admission. PHYSICAL EXAMINATION: VITAL SIGNS: I reviewed this patient's vital signs. HEENT: Noncontributory except for dry mouth. LUNGS: Clear to auscultation. HEART: Regular rhythm. ABDOMEN: Soft, tenderness in the epigastric area as well as in the left upper quadrant. LABORATORY DATA: Review of this patient's laboratory data. White count 10,000, H and H 12 and 38, platelets 322. Labs indicate elevation of alkaline phosphatase and near normal AST, ALT ratio 37/33. Amylase, lipase within normal limits. Imaging studies indicate "hypodense mass in the right lobe of the liver adjacent to gallbladder." Unclear what this is as per Radiology. 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 Evaluation also indicates gallbladder wall thickening with pericholecystic fluid. Ultrasound was not definitive about diagnosis of the right hepatic lobe mass. ASSESSMENT AND PLAN: This is a 56-year-old female here with complaints of epigastric, left upper quadrant pain. Patient is now asymptomatic at the bedside this morning, but that according to the plan outlined in notes, patient will go for an Interventional Radiology evaluation of the right hepatic mass. Because of the reports on gallbladder, consideration should be made for possible cholecystectomy at some time point. Surgical evaluation requested. Patient is currently on antibiotic therapy, which includes ceftriaxone, metronidazole. I think the orders are adequate at this time point. Edouard Mcclain DO, PhD CHRISTOPHER
[2017-11-15] MEDS: Morphine 2 mg/ml ISec IVP PRN (15:19)
[2017-11-16] MEDS: Sodium Chloride 0.9% 1,000 ML IV SCH ×2 (04:15→14:00)
[2017-11-16] MEDS: Pantoprazole 40 mg EC Tab PO SCH (05:49)
[2017-11-16 06:53] LABS: ALB/GLOB RATIO 1.1 (1.1-1.8); ALBUMIN 3.8 g/dL (3.0-4.8); ALT/SGPT 25 U/L (7-56); AST/SGOT 29 U/L (14-36); BLOOD UREA NITROGEN 7 mg/dL (7-21); CALCIUM 9.1 mg/dL (8.4-10.5); GFR NON-AFRICAN AMERICAN > 60
[2017-11-16 07:43] LABS: BASO # 0.03 K/mm3 (0.0-2.0); BASO % 0.3 % (0.0-3.0); EOS # 0.2 (0.0-0.7); EOS % 2.2 % (1.5-5.0); GRAN # 6.39 (1.4-6.5); GRAN % 66.7 % (50.0-68.0); HEMOGLOBIN 12.2 g/dL (12.0-16.0); LYMPH # 1.9 (1.2-3.4); MEAN CELL VOLUME 88.7 fl (80.0-105.0); MEAN CORPUSCULAR HEMOGLOBIN 29.3 pg (25.0-35.0); MEAN PLATELET VOLUME 9.2 fl (7.0-11.0); MONO % 10.8 % (1.0-6.0); RBC 4.17 10^6/uL (3.5-6.1); WHITE BLOOD COUNT 9.6 10^3/ul (4.5-11.0)
[2017-11-16] MEDS: cefTRIAXone 1 gm 1 GM/100 ML BAG IVPB SCH (10:21)
--- NOTE | 2017-11-16 11:11 | CP.PCM.PN ---
<Polo Mandujano - Last Filed: 11/16/17 11:18> Subjective - Date & Time of Evaluation Date of Evaluation: 11/16/17 Time of Evaluation: 11:05 - Subjective Subjective: PGY-2 medicine progress note for Dr Wilson No acute events noted overnight. She was initially sleeping. Denied pain. She is AAOx3. Stated she gets abdominal pain after eating but which is less - currently advanced to and tolerating a regular diet. Denied chest pain, fever, shortness of breath, diarrhea. Objective - Vital Signs/Intake and Output Vital Signs (last 24 hours): Temp Pulse Resp BP Pulse Ox 97.7 F 80 20 110/67 95 11/16/17 08:16 11/16/17 08:16 11/16/17 08:16 11/16/17 08:16 11/16/17 08:16 Intake and Output: 11/16/17 11/16/17 06:59 18:59 Intake Total 540 Balance 540 - Medications Medications: Current Medications Docusate Sodium (Colace) 100 mg PO BID [facility] Last Admin: 11/16/17 10:21 Dose: 100 mg Sodium Chloride (Sodium Chloride 0.9%) 1,000 mls @ 100 mls/hr IV .Q10H [facility] Last Admin: 11/16/17 04:15 Dose: 100 mls/hr Ceftriaxone Sodium (Rocephin 1 Gram Ivpb) 1 gm in 100 mls @ 100 mls/hr IVPB DAILY [facility]; Protocol Last Admin: 11/16/17 10:21 Dose: 100 mls/hr Metronidazole (Flagyl) 500 mg PO Q8H [facility]; Protocol Last Admin: 11/16/17 10:21 Dose: 500 mg Morphine Sulfate (Morphine) 1 mg IVP Q6H PRN PRN Reason: Pain, severe (8-10) Last Admin: 11/15/17 15:19 Dose: 1 mg Ondansetron HCl (Zofran Inj) 4 mg IVP Q8H PRN PRN Reason: Nausea/Vomiting Pantoprazole Sodium (Protonix Ec Tab) 40 mg PO 0600 [facility] Last Admin: 11/16/17 05:49 Dose: 40 mg - Labs Labs: 11/16/17 06:00 11/16/17 06:00 PT 14.4 SECONDS (9.4-12.5) H 11/14/17 17:55 INR 1.26 11/14/17 17:55 APTT 32.5 Seconds (25.1-36.5) 11/14/17 17:55 Assessment and Plan - Assessment and Plan (Free Text) Plan: 56yo female PMHx GERD presents with 4 days of LUQ and epigastric abdomial pain. CT A/P showed right hepatic lobe mass, calcification of the gallbladder wall consistent with a porcelain gallbladder with stones. GI and Surgery was consulted and patient admitted to med/surg. Abdominal pain -CT A/P 11/14: large irregular poorly defined hypodense mass in the right lobe of the liver adjacent to the GB. Measures 47 x 52 x 73mm in in size. No features of hemangioma. 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 There are also densities in the GB consistent with stones. -Abd u/s 11/14: nodular hepatic contour; correlate clinically for cirrhosis. Heterogenous hepatic parenchyma. Indeterminate 5 x 6.5 x 5.9cm R hepatic lobe mass; malignant neoplasm must be excluded. R sided hydronephrosis 2.8 x 2.6 x 3cm R lower pole cyst. Gallstones and/or GB wall calcifications. GB sludge. GB wall thickening/pericholecystic edema measuring 4mm. Negative [place]. -IR liver biopsy on Friday 11/17 * NPO after midnight -CEA: 466 -CA 19-9: normal -AFP: normal -Lipase and amylase both normal -Rocephin 1g ivp qd and Flagyl IV 500mg po q8h -f/u blood cultures x 2 -f/u acute hep panel -Zofran for nausea -NS@100 -advanced to regular diet, tolerating -Consult hepatobiliary surgery, Dr Bellamy * will likely need liver protocol CT imaging in the future for surgical planning as per surgical team -GI consult, Dr Mcclain * consideration should be made for possible cholecystectomy at some point Asymptomatic UTI -UA:+blood, urobilinogen, bacteria, yeast -urine culture negative -patient on Rocephin 1g ivp qd GI ppx: protonix 40mg po qd DVT ppx: Lovenox 40mg sc qd (hold Friday at midnight 11/17), SCDs Diet: regular Discussed with Dr. Wilson <Arabella Wilson - Last Filed: 11/16/17 15:16> Objective - Vital Signs/Intake and Output Vital Signs (last 24 hours): Temp Pulse Resp BP Pulse Ox 97.8 F 92 H 18 125/78 95 11/16/17 14:44 11/16/17 14:44 11/16/17 14:44 11/16/17 14:44 11/16/17 14:44 Intake and Output: 11/16/17 11/16/17 06:59 18:59 Intake Total 540 Balance 540 - Medications Medications: Current Medications Docusate Sodium (Colace) 100 mg PO BID [facility] Last Admin: 11/16/17 10:21 Dose: 100 mg Sodium Chloride (Sodium Chloride 0.9%) 1,000 mls @ 100 mls/hr IV .Q10H [facility] Last Admin: 11/16/17 04:15 Dose: 100 mls/hr Ceftriaxone Sodium (Rocephin 1 Gram Ivpb) 1 gm in 100 mls @ 100 mls/hr IVPB DAILY [facility]ON[facility]; Protocol Last Admin: 11/16/17 10:21 Dose: 100 mls/hr Metronidazole (Flagyl) 500 mg PO Q8H [facility]ONNE; Protocol Last Admin: 11/16/17 10:21 Dose: 500 mg Morphine Sulfate (Morphine) 1 mg IVP Q6H PRN PRN Reason: Pain, severe (8-10) Last Admin: 11/16/17 12:18 Dose: 1 mg Ondansetron HCl (Zofran Inj) 4 mg IVP Q8H PRN PRN Reason: Nausea/Vomiting Pantoprazole Sodium (Protonix Ec Tab) 40 mg PO 0600 [facility] Last Admin: 11/16/17 05:49 Dose: 40 mg - Labs Labs: 11/16/17 06:00 11/16/17 06:00 PT 14.4 SECONDS (9.4-12.5) H 11/14/17 17:55 INR 1.26 11/14/17 17:55 APTT 32.5 Seconds (25.1-36.5) 11/14/17 17:55 Attending/Attestation - Attestation I have personally seen and examined this patient.: Yes I have fully participated in the care of the patient.: Yes I have reviewed all pertinent clinical information, including history, physical exam and plan: Yes Notes (Text): 11/16/17 15:13 Attending note; Patient seen and examined with resident. Patient is alert and awake. Complaining of mild abdominal pain. Denies any nausea, vomiting. Denies any urinary, bowel symptoms. tolerating diet. Nothing by mouth past midnight for biopsy tomorrow. Patient is a 56 -year-old female, with PMH of GERD, gastritis, presents to the ED with 4 days of LUQ and epigastric abdomial pain, sharp, constant, radiates to the back, progressive, now 7/10, worsens by food and no alleviating factors. Patient was diagnosed with gastritis with positive urea breath test 2 weeks ago. Patient received triple therapy for H pylori infection that has recently completed 4 days ago.But patient continues to have abdominal discomfort. Ultrasound showed thickening of the gallbladder wall and liver mass. CT scan showed right hepatic lobe mass, calcification of the gallbladder wall consistent with a porcelain gallbladder with stones. CT scan reviewed with Dr. Jamshid Conteh. Plan for liver biopsy tomorrow. Nothing by mouth past midnight. hold DVT prophylaxis. surgery evaluation Appreciated. on IV Rocephin and Flagyl. upon discharge patient will be referred to [facility] clinic. 11/16/17 15:15
--- NOTE | 2017-11-16 12:16 | PN ---
DATE: 11/16/2017 SUBJECTIVE: I saw Ms. Montes De Oca this morning. Patient is a 56-year-old female with complaints of severe right upper quadrant abdominal pain. At the bedside this morning, patient indicated small amount of pain in the epigastric area as well as in the right upper quadrant. Nausea and vomiting has decreased. Note that I discussed this case with Dr. Wilson yesterday. LABORATORY DATA: I reviewed the laboratory data from yesterday. Note that the CEA is 466, CA 19-9 less than 1.4. Alpha-fetoprotein 3.5. PHYSICAL EXAMINATION: VITAL SIGNS: Reviewed this patient's vital signs. HEENT: Noncontributory. LUNGS: Decreased breath sounds, basilar. HEART: Regular rhythm. ABDOMEN: Mild tenderness in the epigastric area as well as in the right upper quadrant. The abdomen appears mildly distended, but nontender. OVERALL ASSESSMENT: This is a 56-year-old female with abnormality on the abdominal CT scan, found to have a hypodense mass in the right lobe of the liver adjacent to the gallbladder. Note that she also has a porcelain gallbladder. Dr. Wilson will have a biliary surgical consult performed in this patient and surgical input is warranted. Not much to contribute in this case. Lesion biopsy pending. Edouard Mcclain DO, PhD CHRISTOPHER
[2017-11-16] MEDS: Morphine 2 mg/ml ISec IVP PRN ×2 (12:18→22:41)
[2017-11-17] MEDS: Sodium Chloride 0.9% 1,000 ML IV SCH (01:15)
[2017-11-17] MEDS: Pantoprazole 40 mg EC Tab PO SCH (05:32)
[2017-11-17 06:42] LABS: BASO # 0.02 K/mm3 (0.0-2.0); BASO % 0.2 % (0.0-3.0); EOS # 0.2 (0.0-0.7); GRAN # 6.27 (1.4-6.5); GRAN % 66.2 % (50.0-68.0); HEMOGLOBIN 12.6 g/dL (12.0-16.0); LYMPH % 20.9 % (22.0-35.0); MEAN CELL VOLUME 89.2 fl (80.0-105.0); MEAN CORPUSCULAR HEMOGLOBIN 29.5 pg (25.0-35.0); MEAN CORPUSCULAR HGB CONC 33.1 g/dl (31.0-37.0); MONO % 10.7 % (1.0-6.0); RBC 4.27 10^6/uL (3.5-6.1); RED CELL DISTRIBUTION WIDTH 12.1 % (11.5-14.5); WHITE BLOOD COUNT 9.5 10^3/ul (4.5-11.0)
[2017-11-17 06:47] LABS: INR 1.39; PARTIAL THROMBOPLASTIN TIME 30.9 Seconds (25.1-36.5); PROTHROMBIN TIME 16.1 SECONDS (9.4-12.5)
[2017-11-17 07:24] LABS: ALB/GLOB RATIO 1.1 (1.1-1.8); ALBUMIN 3.8 g/dL (3.0-4.8); ALT/SGPT 23 U/L (7-56); AST/SGOT 34 U/L (14-36); BLOOD UREA NITROGEN 9 mg/dL (7-21); CALCIUM 9.1 mg/dL (8.4-10.5); GFR NON-AFRICAN AMERICAN > 60
[2017-11-17 08:23] LABS: HEPATITIS B SURFACE AG Negative (NEGATIVE)
[2017-11-17 08:28] LABS: HEPATITIS A IGM NEGATIVE (NEGATIVE); HEPATITIS B CORE AB NEGATIVE (NEGATIVE)
[2017-11-17 08:40] LABS: HEPATITIS C ANTIBODY NEGATIVE (NEGATIVE)
[2017-11-17] MEDS: cefTRIAXone 1 gm 1 GM/100 ML BAG IVPB SCH (10:00)
[2017-11-17] MEDS ORDERED: Midazolam 2 MG/2 ML VIAL ONE (14:43)
[2017-11-17] MEDS ORDERED: Lidocaine 1% 5ml Abboject ONE (14:44)
[2017-11-17] MEDS ORDERED: Midazolam 2 MG/2 ML VIAL IVP ONE (16:06)
[2017-11-17] MEDS: Morphine 2 mg/ml ISec IVP PRN ×2 (18:04→23:59)
[2017-11-17] MEDS: Sodium Chloride 0.45% 1,000 ML IV SCH (18:23)
--- NOTE | 2017-11-17 18:30 | CP.PCM.PN ---
<Noah Cr - Last Filed: 11/17/17 23:17> Subjective - Date & Time of Evaluation Date of Evaluation: 11/17/17 Time of Evaluation: 07:00 - Subjective Subjective: Leo Eubanks [facility] - Hospital Progress No Patient was seen this morning prior to IR guided biopsy of the liver. Patient only voicing complaints of mild abdominal pain. No other complaints voiced. Remainder of 12 system ROS was negative at time of exam. Objective - Vital Signs/Intake and Output Vital Signs (last 24 hours): Temp Pulse Resp BP Pulse Ox 97.9 F 84 15 132/70 95 11/17/17 16:38 11/17/17 16:38 11/17/17 16:38 11/17/17 16:38 11/17/17 16:38 Intake and Output: 11/17/17 11/17/17 06:59 18:59 Intake Total 125 Balance 125 - Medications Medications: Current Medications Acetaminophen (Tylenol 325mg Tab) 650 mg PO Q4 PRN PRN Reason: Pain, Mild (1-3) Docusate Sodium (Colace) 100 mg PO BID [facility] Last Admin: 11/17/17 18:05 Dose: 100 mg Ceftriaxone Sodium (Rocephin 1 Gram Ivpb) 1 gm in 100 mls @ 100 mls/hr IVPB DAILY [facility]; Protocol Last Admin: 11/17/17 10:00 Dose: 100 mls/hr Sodium Chloride (Sodium Chloride 0.45%) 1,000 mls @ 80 mls/hr IV .[id number] [facility] Stop: 11/18/17 08:00 Last Admin: 11/17/17 18:23 Dose: 80 mls/hr Morphine Sulfate (Morphine) 1 mg IVP Q6H PRN PRN Reason: Pain, severe (8-10) Last Admin: 11/17/17 18:04 Dose: 1 mg Ondansetron HCl (Zofran Inj) 4 mg IVP Q8H PRN PRN Reason: Nausea/Vomiting Oxycodone/Acetaminophen (Percocet 5/325 Mg Tab) 1 tab PO Q4H PRN PRN Reason: Pain, moderate (4-7) Stop: 11/20/17 15:30 Pantoprazole Sodium (Protonix Ec Tab) 40 mg PO 0600 [facility] Last Admin: 11/17/17 05:32 Dose: 40 mg - Labs Labs: 11/17/17 06:20 11/17/17 06:20 PT 16.1 SECONDS (9.4-12.5) H 11/17/17 06:20 INR 1.39 11/17/17 06:20 APTT 30.9 Seconds (25.1-36.5) 11/17/17 06:20 - Constitutional Appears: Well, Non-toxic, No Acute Distress - Head Exam Head Exam: ATRAUMATIC, NORMOCEPHALIC - Eye Exam Eye Exam: EOMI, PERRL - ENT Exam ENT Exam: Mucous Membranes Moist - Respiratory Exam Respiratory Exam: Clear to Ausculation Bilateral, NORMAL BREATHING PATTERN - Cardiovascular Exam Cardiovascular Exam: RRR, +S1, +S2 - GI/Abdominal Exam GI & Abdominal Exam: Soft, Tenderness (mild LUQ). absent: Distended, Guarding, Rigid - Neurological Exam Neurological Exam: Alert, Awake, CN II-XII Intact, Oriented x3 - Psychiatric Exam Psychiatric exam: Normal Affect, Normal Mood - Skin Skin Exam: Dry, Intact, Normal Color, Warm Assessment and Plan - Assessment and Plan (Free Text) Assessment: 56F w/ PMH GERD and H.Pylori Gastritis presented to [facility] on 11/14 for CC of LUQ + Epigastric abdominal pain. CTAP on adm showed R hepatic lobe mass, and procelain gallbladder. Patient underwent CT Guided biopsy of hepatic lobe mass. Abdominal pain -CT A/P 11/14: large irregular poorly defined hypodense mass in the right lobe of the liver adjacent to the GB. Measures 47 x 52 x 73mm in in size. No features of hemangioma. 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 There are also densities in the GB consistent with stones. -Abd u/s 11/14: nodular hepatic contour; correlate clinically for cirrhosis. Heterogenous hepatic parenchyma. Indeterminate 5 x 6.5 x 5.9cm R hepatic lobe mass; malignant neoplasm must be excluded. R sided hydronephrosis 2.8 x 2.6 x 3cm R lower pole cyst. Gallstones and/or GB wall calcifications. GB sludge. GB wall thickening/pericholecystic edema measuring 4mm. Negative [place]. -IR liver biopsy Friday 11/17 - no complications reported -Follow up pathology when available -CEA: 466 -CA 19-9: normal -AFP: normal -Lipase and amylase both normal -Rocephin 1g ivp qd and Flagyl IV 500mg po q8h -Acute hep panel negativ -Zofran for nausea -NS@100 -advanced to regular diet, tolerating; currently NPO for IR guided biopsy -Consult hepatobiliary surgery, Dr Bellamy * will likely need liver protocol CT imaging in the future for surgical planning as per surgical team -GI consult, Dr Mcclain * consideration should be made for possible cholecystectomy at some point Asymptomatic UTI -UA:+blood, urobilinogen, bacteria, yeast -urine culture negative -patient on Rocephin 1g ivp qd GI ppx: protonix 40mg po qd DVT ppx: Lovenox 40mg sc qd, SCDs - Holding lovenox for biopsy Diet: regular Patient seen and examined w/ attending physician Dr. Jeanne Cr DO PGY1 Internal medicine [employer] Counselor Pager [phone] <Jeanne Cr R - Last Filed: 11/20/17 17:21> Objective - Vital Signs/Intake and Output Vital Signs (last 24 hours): Temp Pulse Resp BP Pulse Ox 100 F H 95 H 20 125/74 91 L 11/20/17 14:00 11/20/17 14:00 11/20/17 14:00 11/20/17 14:00 11/20/17 14:00 Intake and Output: 11/20/17 11/20/17 06:59 18:59 Intake Total 680 600 Balance 680 600 - Medications Medications: Current Medications Acetaminophen (Tylenol 325mg Tab) 650 mg PO Q4 PRN PRN Reason: Pain, Mild (1-3) Last Admin: 11/18/17 14:39 Dose: 650 mg Alprazolam (Xanax) 0.25 mg PO BID PRN; Protocol PRN Reason: Anxiety Stop: 11/27/17 17:04 Docusate Sodium (Colace) 100 mg PO BID [facility] Last Admin: 11/20/17 09:44 Dose: 100 mg Famotidine (Pepcid) 40 mg PO HS [facility]ON[facility] Last Admin: 11/19/17 21:19 Dose: 40 mg Vancomycin HCl (Vancomycin 1gm) 1 gm in 250 mls @ 167 mls/hr IVPB Q12H [facility]; Protocol Last Admin: 11/20/17 08:25 Dose: 167 mls/hr Cefepime HCl (Maxipime 2gm) 2 gm in 100 mls @ 100 mls/hr IVPB Q12 [facility]; Protocol Stop: 11/24/17 22:01 Last Admin: 11/20/17 09:42 Dose: 100 mls/hr Morphine Sulfate (Morphine) 1 mg IVP Q6H PRN PRN Reason: Pain, severe (8-10) Last Admin: 11/18/17 19:41 Dose: 1 mg Ondansetron HCl (Zofran Inj) 4 mg IVP Q8H PRN PRN Reason: Nausea/Vomiting Pantoprazole Sodium (Protonix Ec Tab) 40 mg PO 0600 [facility] Last Admin: 11/20/17 05:15 Dose: 40 mg Polyethylene Glycol (Miralax) 17 gm PO DAILY [facility] Last Admin: 11/20/17 09:44 Dose: 17 gm - Labs Labs: 11/20/17 06:20 11/20/17 06:20 PT 16.1 SECONDS (9.4-12.5) H 11/17/17 06:20 INR 1.39 11/17/17 06:20 APTT 30.9 Seconds (25.1-36.5) 11/17/17 06:20 Attending/Attestation - Attestation I have personally seen and examined this patient.: Yes I have fully participated in the care of the patient.: Yes I have reviewed all pertinent clinical information, including history, physical exam and plan: Yes Notes (Text): Patient seen and examined by me at 2:25PM with resident 11/17/17. Case including HPI, physical exam, and assessment and plan discussed with resident. Agree with above with following additions/corrections. Patient is a 56-year-old female with past medical history of GERD and gastritis the presented to the emergency room with abdominal pain. Patient states that she is feeling ok. States she is have pain in the epigastric area and right upper quadrant. She states she is also have some shortness of breath with the pain. Pain is constant. No nausea or vomiting. No chest pain or palpitations. No headaches or dizziness. No dysuria. Physical exam: Gen: Awake and alert lying in bed in no acute distress HEENT: Normocephalic, atraumatic. Extraocular muscles intact, pupils equal reactive. No scleral icterus. Oropharynx is pink and moist. Neck is supple. Cardiovascular: Normal rhythm. Normal S1, S2. No murmurs, rubs, or gallops appreciated Pulmonary: Normal respiratory effort. No rhonchi, rales, or wheezing appreciated. Gastrointestinal: Soft, nondistended. Positive right upper quadrant and epigastric tenderness. Positive bowel sounds all 4 quadrants, no guarding. Musculoskeletal: Moves all extremities. No calf tenderness. No edema a ppreciated. Central nervous system: AAO x 3. CN 2-12 grossly intact Dermatologic: Skin warm and dry Assessment and plan: Patient is a 56-year-old female with past medical history of GERD, gastritis, and H. Pylori that presented to the emergency room with abdominal pain. 1. Abdominal pain. CT abdomen pelvis per radiologist showed large irregular poorly defined hypodense mass in the right lobe of the liver adjacent to the gallbladder; this measures 47 x 50 to by 73 mm in size; there is calcification of the gallbladder wall consistent with a porcelain gallbladder, there are also densities in the gallbladder consistent with stones. Abdominal ultrasound per radiologist showed nodular hepatic contour; heterogeneous hepatic parenchyma; indeterminant 5 x 6.5 x 5.9 cm right hepatic lobe mass; right-sided hydronephrosis 2.8 x 2.6 x 3 cm right lower pole cyst; gallstones in her gallbladder wall calcifications; gallbladder sludge; gallbladder wall thickening/pericholecystic edema measuring approximately 4 mm. Patient for liver biopsy today. Surgery following, recommendations appreciated. The following, recommendations appreciated. CEA elevated at 466. Continue Rocephin and Flagyl. Will likely need liver protocol CT imaging in the future for surgical planning as per surgical team 2. Abnormal urinalysis. Patient is asymptomatic. Urine culture with no growth. Case was discussed in detail with the patient in Togolese regarding current diagnosis and treatment plan.
--- NOTE | 2017-11-17 20:38 | CT ---
PROCEDURE: CT guided liver biopsy. HISTORY: Porcelain gallbladder. Infiltrated liver mass. 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 PHYSICIAN(S): Jamshid Conteh MD. TECHNIQUE: The relative risks and indications of the procedure were explained to the patient through an diplomatic interpreter/translator and consent obtained. The patient was placed supine on the CT scanner and preliminary images through the liver obtained. Conscious sedation and monitoring were provided throughout the procedure by a nurse. There is a 7 cm mass involving the gallbladder and liver.. A right anterior lateral approach was selected and the area prepped and draped in the usual sterile fashion. 1% Xylocaine was used to anesthetize the skin and soft tissues. A 17-gauge guiding needle was advanced into the 7 cm liver mass. Its position was confirmed with CT. Using coaxial technique, multiple core biopsies were obtained. The postprocedure images show no evidence of significant hemorrhage. IMPRESSION: 1. CT-guided liver biopsy as described above.
[2017-11-18] MEDS: Pantoprazole 40 mg EC Tab PO SCH (05:01)
[2017-11-18] MEDS: Sodium Chloride 0.45% 1,000 ML IV SCH (05:02)
[2017-11-18 07:00] LABS: BASO # 0.02 K/mm3 (0.0-2.0); BASO % 0.2 % (0.0-3.0); EOS # 0.1 (0.0-0.7); EOS % 0.5 % (1.5-5.0); GRAN # 9.48 (1.4-6.5); GRAN % 77.3 % (50.0-68.0); HEMOGLOBIN 12.6 g/dL (12.0-16.0); LYMPH # 1.7 (1.2-3.4); LYMPH % 13.6 % (22.0-35.0); MEAN CELL VOLUME 88.8 fl (80.0-105.0); MEAN CORPUSCULAR HEMOGLOBIN 29.3 pg (25.0-35.0); MEAN PLATELET VOLUME 9.1 fl (7.0-11.0); MONO % 8.4 % (1.0-6.0); RBC 4.3 10^6/uL (3.5-6.1); RED CELL DISTRIBUTION WIDTH 12.2 % (11.5-14.5); WHITE BLOOD COUNT 12.3 10^3/ul (4.5-11.0)
[2017-11-18 07:28] LABS: ALB/GLOB RATIO 1.1 (1.1-1.8); ALBUMIN 4.2 g/dL (3.0-4.8); ALT/SGPT 39 U/L (7-56); AST/SGOT 63 U/L (14-36); BLOOD UREA NITROGEN 10 mg/dL (7-21); CALCIUM 9.1 mg/dL (8.4-10.5); GFR NON-AFRICAN AMERICAN > 60
[2017-11-18] MEDS: Morphine 2 mg/ml ISec IVP PRN ×2 (08:01→19:41)
[2017-11-18] MEDS: cefTRIAXone 1 gm 1 GM/100 ML BAG IVPB SCH (14:39)
--- NOTE | 2017-11-18 15:12 | RAD ---
Date of service: 11/17/2017 HISTORY: sob COMPARISON: No prior. FINDINGS: LUNGS: There is linear atelectasis at the left lung base. The lungs are otherwise clear PLEURA: No significant pleural effusion identified, no pneumothorax apparent. CARDIOVASCULAR: Normal. OSSEOUS STRUCTURES: No significant abnormalities. VISUALIZED UPPER ABDOMEN: Normal. OTHER FINDINGS: None. IMPRESSION: There is linear atelectasis at the left lung base. The lungs are otherwise clear
[2017-11-18] MEDS ORDERED: POLYETHYLENE GLYCOL 3350 17 GM/Dose PACKET PO ONE (19:00)
[2017-11-18] MEDS: Oxycodone/Acetaminophen 5/325 mg Tab PO PRN (20:42)
--- NOTE | 2017-11-18 20:42 | CP.PCM.PN ---
<Noah Cr - Last Filed: 11/18/17 20:39> Subjective - Date & Time of Evaluation Date of Evaluation: 11/18/17 Time of Evaluation: 07:00 - Subjective Subjective: Noah Cr DO PGY1 Internal Medicine Camp Coordinator - Hospital Progress Note Patient seen and examined this morning at bedside. Patient had IR Guided biopsy yesterday; tolerated procedure well. No acute events reported overnight This morning, patient is complaining of SOB 2/2 abd pain, also reporting some decreased appetite and constipation at this time. Remainder of 12 system ROS is negative. Objective - Vital Signs/Intake and Output Vital Signs (last 24 hours): Temp Pulse Resp BP Pulse Ox 98.9 F 95 H 20 112/69 96 11/18/17 18:38 11/18/17 14:00 11/18/17 14:00 11/18/17 14:00 11/18/17 18:38 Intake and Output: 11/18/17 11/19/17 18:59 06:59 Intake Total 780 Balance 780 - Medications Medications: Current Medications Acetaminophen (Tylenol 325mg Tab) 650 mg PO Q4 PRN PRN Reason: Pain, Mild (1-3) Last Admin: 11/18/17 14:39 Dose: 650 mg Docusate Sodium (Colace) 100 mg PO BID [facility] Last Admin: 11/18/17 18:36 Dose: 100 mg Morphine Sulfate (Morphine) 1 mg IVP Q6H PRN PRN Reason: Pain, severe (8-10) Last Admin: 11/18/17 19:41 Dose: 1 mg Ondansetron HCl (Zofran Inj) 4 mg IVP Q8H PRN PRN Reason: Nausea/Vomiting Oxycodone/Acetaminophen (Percocet 5/325 Mg Tab) 1 tab PO Q4H PRN PRN Reason: Pain, moderate (4-7) Stop: 11/20/17 15:30 Pantoprazole Sodium (Protonix Ec Tab) 40 mg PO 0600 [facility] Last Admin: 11/18/17 05:01 Dose: 40 mg Polyethylene Glycol (Miralax) 17 gm PO DAILY [facility] - Labs Labs: 11/18/17 06:15 11/18/17 06:15 PT 16.1 SECONDS (9.4-12.5) H 11/17/17 06:20 INR 1.39 11/17/17 06:20 APTT 30.9 Seconds (25.1-36.5) 11/17/17 06:20 - Constitutional Appears: Well, Non-toxic, No Acute Distress - Head Exam Head Exam: ATRAUMATIC, NORMOCEPHALIC - Eye Exam Eye Exam: EOMI, PERRL - ENT Exam ENT Exam: Mucous Membranes Moist - Respiratory Exam Respiratory Exam: Clear to Ausculation Bilateral, NORMAL BREATHING PATTERN - Cardiovascular Exam Cardiovascular Exam: RRR, +S1, +S2 - GI/Abdominal Exam GI & Abdominal Exam: Soft, RUQ tenderness near biopsy site, Biopsy dressing on R abdominal wall CDI - Neurological Exam Neurological Exam: Alert, Awake, CN II-XII Intact, Oriented x3 - Psychiatric Exam Psychiatric exam: Normal Affect, Normal Mood - Skin Skin Exam: Dry, Intact, Normal Color, Warm Assessment and Plan - Assessment and Plan (Free Text) Assessment: 56F w/ PMH GERD and H.Pylori Gastritis presented to [facility] on 11/14 for CC of LUQ + Epigastric abdominal pain. CTAP on adm showed R hepatic lobe mass, and procelain gallbladder. Patient underwent CT Guided biopsy of hepatic lobe mass. Hepatic Mass + Porcelain Gallbladder -CT A/P 11/14: large irregular poorly defined hypodense mass in the right lobe of the liver adjacent to the GB. Measures 47 x 52 x 73mm in in size. No features of hemangioma. 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 There are also densities in the GB consistent with stones. -Abd u/s 11/14: nodular hepatic contour; correlate clinically for cirrhosis. Heterogenous hepatic parenchyma. Indeterminate 5 x 6.5 x 5.9cm R hepatic lobe mass; malignant neoplasm must be excluded. R sided hydronephrosis 2.8 x 2.6 x 3cm R lower pole cyst. Gallstones and/or GB wall calcifications. GB sludge. GB wall thickening/pericholecystic edema measuring 4mm. Negative [place]. -IR liver biopsy Friday 11/17 - no complications reported; patient tolerating well after biopsy -Morphine 1mg Q6H PRN -Follow up pathology when available -CEA: 466 - ELEVATED -CA 19-9: normal -AFP: normal -Lipase and amylase both normal -DC Rocephin 1g ivp qd and Flagyl IV 500mg po q8h -Acute hep panel negative -Consult hepatobiliary surgery, Dr Bellamy * will likely need liver protocol CT imaging in the future for surgical planning as per surgical team -GI consult, Dr Mcclain * consideration should be made for possible cholecystectomy at some point Constipation + Abd discomfort No BM since past C/w Colace + Start Miralax Pt. is on opiate, can consider deescalating if pain is improving C/w regular diet Asymptomatic UTI -UA:+blood, urobilinogen, bacteria, yeast -urine culture negative -patient on Rocephin 1g ivp qd GI ppx: protonix 40mg po qd DVT ppx: Lovenox 40mg sc qd, SCDs - Holding lovenox for biopsy Diet: regular Patient seen and examined w/ attending physician Dr. Jeanne Cr DO PGY1 Internal medicine Camp Coordinator Pager [phone] <Jeanne Cr R - Last Filed: 11/20/17 17:36> Objective - Vital Signs/Intake and Output Vital Signs (last 24 hours): Temp Pulse Resp BP Pulse Ox 100 F H 95 H 20 125/74 91 L 11/20/17 14:00 11/20/17 14:00 11/20/17 14:00 11/20/17 14:00 11/20/17 14:00 Intake and Output: 11/20/17 11/20/17 06:59 18:59 Intake Total 680 600 Balance 680 600 - Medications Medications: Current Medications Acetaminophen (Tylenol 325mg Tab) 650 mg PO Q4 PRN PRN Reason: Pain, Mild (1-3) Last Admin: 11/18/17 14:39 Dose: 650 mg Alprazolam (Xanax) 0.25 mg PO BID PRN; Protocol PRN Reason: Anxiety Stop: 11/27/17 17:04 Docusate Sodium (Colace) 100 mg PO BID [facility] Last Admin: 11/20/17 09:44 Dose: 100 mg Famotidine (Pepcid) 40 mg PO HS [facility] Last Admin: 11/19/17 21:19 Dose: 40 mg Vancomycin HCl (Vancomycin 1gm) 1 gm in 250 mls @ 167 mls/hr IVPB Q12H [facility]; Protocol Last Admin: 11/20/17 08:25 Dose: 167 mls/hr Cefepime HCl (Maxipime 2gm) 2 gm in 100 mls @ 100 mls/hr IVPB Q12 [facility]; Protocol Stop: 11/24/17 22:01 Last Admin: 11/20/17 09:42 Dose: 100 mls/hr Morphine Sulfate (Morphine) 1 mg IVP Q6H PRN PRN Reason: Pain, severe (8-10) Last Admin: 11/18/17 19:41 Dose: 1 mg Ondansetron HCl (Zofran Inj) 4 mg IVP Q8H PRN PRN Reason: Nausea/Vomiting Pantoprazole Sodium (Protonix Ec Tab) 40 mg PO 0600 [facility] Last Admin: 11/20/17 05:15 Dose: 40 mg Polyethylene Glycol (Miralax) 17 gm PO DAILY [facility] Last Admin: 11/20/17 09:44 Dose: 17 gm Sennosides (Senokot Tab) 8.6 mg PO HS [facility] - Labs Labs: 11/20/17 06:20 11/20/17 06:20 PT 16.1 SECONDS (9.4-12.5) H 11/17/17 06:20 INR 1.39 11/17/17 06:20 APTT 30.9 Seconds (25.1-36.5) 11/17/17 06:20 Attending/Attestation - Attestation I have personally seen and examined this patient.: Yes I have fully participated in the care of the patient.: Yes I have reviewed all pertinent clinical information, including history, physical exam and plan: Yes Notes (Text): Patient seen and examined by me at 1:05PM with resident 11/18/17. Case including HPI, physical exam, and assessment and plan discussed with resident. Agree with above with following additions/corrections. Patient is a 56-year-old female with past medical history of GERD and gastritis the presented to the emergency room with abdominal pain. Patient states that she is not feeling great. States she is having pain in the right upper quadrant at biopsy site. Also still with some shortness of breath. Patient denies any other abdominal pain. Pain is constant and worse with movement. No nausea or vomiting. No chest pain or palpitations. No headaches or dizziness. No dysuria. Patient states she has been constipated. Patient also with decreased appetite Physical exam: Gen: Awake and alert lying in bed in no acute distress HEENT: Normocephalic, atraumatic. Extraocular muscles intact, pupils equal reactive. No scleral icterus. Oropharynx is pink and moist. Neck is supple. Cardiovascular: Normal rhythm. Normal S1, S2. No murmurs, rubs, or gallops appreciated Pulmonary: Normal respiratory effort. Decreased breath sounds. No rhonchi, rales, or wheezing appreciated. Gastrointestinal: Soft, nondistended. Positive right upper quadrant and epigastric tenderness. Positive bowel sounds all 4 quadrants, no guarding. Musculoskeletal: Moves all extremities. No calf tenderness. No edema appreciated. Central nervous system: AAO x 3. CN 2-12 grossly intact Dermatologic: Skin warm and dry Assessment and plan: Patient is a 56-year-old female with past medical history of GERD, gastritis, and H. Pylori that presented to the emergency room with abdominal pain. 1. Abdominal pain. Porcelain gallbladder. Liver mass. Status post liver biopsy 11/17/2017. Pending results. Continue Rocephin and Flagyl. Surgery following, recommendations appreciated. GI following, recommendations appreciated. CEA elevated at 466. Continue Rocephin and FlagylCT abdomen pelvis per radiologist showed large irregular poorly defined hypodense mass in the right lobe of the liver adjacent to the gallbladder; this measures 47 x 50 to by 73 mm in size; there is calcification of the gallbladder wall consistent with a porcelain gallbladder, there are also densities in the gallbladder consistent with stones. Abdominal ultrasound per radiologist showed nodular hepatic contour; heter ogeneous hepatic parenchyma; indeterminant 5 x 6.5 x 5.9 cm right hepatic lobe mass; right-sided hydronephrosis 2.8 x 2.6 x 3 cm right lower pole cyst; gallstones in her gallbladder wall calcifications; gallbladder sludge; gallbladder wall thickening/pericholecystic edema measuring approximately 4 mm. Will likely need liver protocol CT imaging in the future for surgical planning as per surgical team 2. Constipation. Will start on Colace and MiraLAX. 3. Abnormal urinalysis. Patient is asymptomatic. Urine culture with no growth. Case was discussed in detail with the patient in Bulgarian regarding current diagnosis and treatment plan.
[2017-11-19] MEDS: Pantoprazole 40 mg EC Tab PO SCH (05:45)
[2017-11-19] MEDS: Oxycodone/Acetaminophen 5/325 mg Tab PO PRN ×3 (05:48→21:19)
[2017-11-19 06:34] LABS: BASO # 0.02 K/mm3 (0.0-2.0); BASO % 0.2 % (0.0-3.0); EOS # 0.2 (0.0-0.7); EOS % 1.3 % (1.5-5.0); GRAN # 8.75 (1.4-6.5); GRAN % 74.6 % (50.0-68.0); HEMOGLOBIN 12.3 g/dL (12.0-16.0); LYMPH # 1.8 (1.2-3.4); LYMPH % 15.3 % (22.0-35.0); MEAN CELL VOLUME 89.6 fl (80.0-105.0); MEAN CORPUSCULAR HEMOGLOBIN 29.6 pg (25.0-35.0); MEAN CORPUSCULAR HGB CONC 33.1 g/dl (31.0-37.0); MEAN PLATELET VOLUME 8.8 fl (7.0-11.0); MONO % 8.6 % (1.0-6.0); RBC 4.15 10^6/uL (3.5-6.1); RED CELL DISTRIBUTION WIDTH 12.3 % (11.5-14.5); WHITE BLOOD COUNT 11.7 10^3/ul (4.5-11.0)
[2017-11-19 07:05] LABS: ALB/GLOB RATIO 1.1 (1.1-1.8); ALT/SGPT 37 U/L (7-56); AST/SGOT 44 U/L (14-36); BLOOD UREA NITROGEN 12 mg/dL (7-21); CALCIUM 9.1 mg/dL (8.4-10.5); GFR NON-AFRICAN AMERICAN > 60
--- NOTE | 2017-11-19 09:47 | RAD ---
Date of service: 11/19/2017 HISTORY: SOB COMPARISON: 11/17/2017 FINDINGS: LUNGS: There is linear atelectasis in the right upper lobe and left lower lobe. PLEURA: No significant pleural effusion identified, no pneumothorax apparent. CARDIOVASCULAR: Normal. OSSEOUS STRUCTURES: No significant abnormalities. VISUALIZED UPPER ABDOMEN: Normal. OTHER FINDINGS: None. IMPRESSION: No active disease.
[2017-11-19] MEDS: POLYETHYLENE GLYCOL 3350 17 GM/Dose PACKET PO SCH (10:41)
--- NOTE | 2017-11-19 11:22 | RAD ---
Date of service: 11/19/2017 HISTORY: Re-image COMPARISON: November 19, 2017 07:50 FINDINGS: LUNGS: Confirmation of atelectasis both lower lobes and right upper lobe. PLEURA: No significant pleural effusion identified, no pneumothorax apparent. CARDIOVASCULAR: No radiographic findings to suggest acute or significant cardiovascular disease. OSSEOUS STRUCTURES: No significant abnormalities. VISUALIZED UPPER ABDOMEN: Normal. OTHER FINDINGS: None. IMPRESSION: No significant interval change compared to the prior examination(s).
[2017-11-19] MEDS ORDERED: Iohexol 350 MG/100 ML VIAL ONE (12:06)
--- NOTE | 2017-11-19 13:42 | CT ---
Date of service: 11/19/2017 PROCEDURE: CT Chest with contrast (Pulmonary Angiogram) HISTORY: shortness of breath COMPARISON: None available. TECHNIQUE: Axial computed tomography images were obtained of the chest in the pulmonary arterial phase of enhancement. Coronal and sagittal reformatted images were created and reviewed. Intravenous contrast dose: 100 cc of Omni 350 Radiation dose: Total exam DLP = 397 mGy-cm. This CT exam was performed using one or more of the following dose reduction techniques: Automated exposure control, adjustment of the mA and/or kV according to patient size, and/or use of iterative reconstruction technique. FINDINGS: PULMONARY ARTERIES: Unremarkable. No pulmonary embolism. AORTA: No acute findings. No thoracic aortic aneurysm. LUNGS: Focal consolidation is seen in the posterior lower lobes consistent with pneumonia. There is a linear infiltrate in the right upper lobe PLEURAL SPACES: Small right pleural effusion. HEART: Unremarkable. No cardiomegaly. No significant pericardial effusion. LYMPH NODES: No lymphadenopathy. BONES, CHEST WALL: Unremarkable. No fracture or destructive lesion OTHER FINDINGS: Unremarkable. IMPRESSION: Focal consolidation is seen in the posterior lower lobes consistent with pneumonia. There is a linear infiltrate in the right upper lobe No evidence of pulmonary embolus
[2017-11-19] MEDS ORDERED: Enoxaparin 40 mg Syringe SC SCH (13:45)
--- NOTE | 2017-11-19 13:47 | CP.PCM.PN ---
<Noah Cr - Last Filed: 11/19/17 20:17> Subjective - Date & Time of Evaluation Date of Evaluation: 11/19/17 Time of Evaluation: 13:40 - Subjective Subjective: Noah Cr DO PGY1 - Internal Medicine Instructor [employer] - Hospital Progress Note Patient seen and examined at bedside this morning. Patient is still having complaints of pain from biopsy site and RUQ; also reports some decreased appetite. Patient reports some shortness of breath this morning as well. Remainder of 12 system ROS is unremarkable at this time. Objective - Vital Signs/Intake and Output Vital Signs (last 24 hours): Temp Pulse Resp BP Pulse Ox 98.4 F 88 20 126/70 100 11/19/17 06:00 11/19/17 06:00 11/19/17 06:00 11/19/17 06:00 11/19/17 06:00 Intake and Output: 11/19/17 11/19/17 06:59 18:59 Intake Total 820 Balance 820 - Medications Medications: Current Medications Acetaminophen (Tylenol 325mg Tab) 650 mg PO Q4 PRN PRN Reason: Pain, Mild (1-3) Last Admin: 11/18/17 14:39 Dose: 650 mg Docusate Sodium (Colace) 100 mg PO BID [facility] Last Admin: 11/19/17 10:41 Dose: 100 mg Morphine Sulfate (Morphine) 1 mg IVP Q6H PRN PRN Reason: Pain, severe (8-10) Last Admin: 11/18/17 19:41 Dose: 1 mg Ondansetron HCl (Zofran Inj) 4 mg IVP Q8H PRN PRN Reason: Nausea/Vomiting Oxycodone/Acetaminophen (Percocet 5/325 Mg Tab) 1 tab PO Q4H PRN PRN Reason: Pain, moderate (4-7) Stop: 11/20/17 15:30 Last Admin: 11/19/17 05:48 Dose: 1 tab Pantoprazole Sodium (Protonix Ec Tab) 40 mg PO 0600 [facility] Last Admin: 11/19/17 05:45 Dose: 40 mg Polyethylene Glycol (Miralax) 17 gm PO DAILY [facility] Last Admin: 11/19/17 10:41 Dose: 17 gm - Labs Labs: 11/19/17 06:15 11/19/17 06:15 PT 16.1 SECONDS (9.4-12.5) H 11/17/17 06:20 INR 1.39 11/17/17 06:20 APTT 30.9 Seconds (25.1-36.5) 11/17/17 06:20 - Constitutional Appears: Well, Non-toxic, No Acute Distress - Head Exam Head Exam: ATRAUMATIC, NORMOCEPHALIC - Eye Exam Eye Exam: EOMI, PERRL - ENT Exam ENT Exam: Mucous Membranes Moist - Respiratory Exam Respiratory Exam: Bilateral rales appreciated in mid/lower lung ramos - Cardiovascular Exam Cardiovascular Exam: RRR, +S1, +S2 - GI/Abdominal Exam GI & Abdominal Exam: Soft, RUQ tenderness near biopsy site, Biopsy dressing on R abdominal wall CDI - Neurological Exam Neurological Exam: Alert, Awake, CN II-XII Intact, Oriented x3 - Psychiatric Exam Psychiatric exam: Normal Affect, Normal Mood - Skin Skin Exam: Dry, Intact, Normal Color, Warm Assessment and Plan - Assessment and Plan (Free Text) Assessment: 56F w/ PMH GERD and H.Pylori Gastritis presented to [facility] on 11/14 for CC of LUQ + Epigastric abdominal pain. CTAP on adm showed R hepatic lobe mass, and procelain gallbladder. Patient underwent CT Guided biopsy of hepatic lobe mass. SOB w/ crackles - HCAP vs PE CTAP 11/19: Focal consolidation is seen in the posterior lower lobes consistent with pneumonia. There is a linear infiltrate in the right upper lobe No evidence of pulmonary embolus -Afebrile w/ WBC elevation -Start vanc + Zosyn -ID Consulted Hepatic Mass + Porcelain Gallbladder -CT A/P 11/14: large irregular poorly defined hypodense mass in the right lobe of the liver adjacent to the GB. Measures 47 x 52 x 73mm in in size. No features of hemangioma. 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 There are also densities in the GB consistent with stones. -Abd u/s 11/14: nodular hepatic contour; correlate clinically for cirrhosis. Heterogenous hepatic parenchyma. Indeterminate 5 x 6.5 x 5.9cm R hepatic lobe mass; malignant neoplasm must be excluded. R sided hydronephrosis 2.8 x 2.6 x 3cm R lower pole cyst. Gallstones and/or GB wall calcifications. GB sludge. GB wall thickening/pericholecystic edema measuring 4mm. Negative [place]. -IR liver biopsy Friday 11/17 - no complications reported; patient tolerating well after biopsy -Morphine 1mg Q6H PRN -Follow up pathology when available; Prelim read as poorly differentiated adenocarcinoma -CEA: 466 - ELEVATED -CA 19-9: normal -AFP: normal -Lipase and amylase both normal -Acute hep panel negative -Consult hepatobiliary surgery, Dr Bellamy * will likely need liver protocol CT imaging in the future for surgical planning as per surgical team -GI consult, Dr Mcclain * consideration should be made for possible cholecystectomy at some point Constipation + Abd discomfort No BM since past C/w Colace + Start Miralax Pt. is on opiate, can consider deescalating if pain is improving C/w regular diet GI ppx: protonix 40mg po qd DVT ppx: Lovenox 40mg sc qd, SCDs - Holding lovenox for biopsy Diet: regular Patient seen and examined w/ attending physician Dr. Jeanne Cr DO PGY1 Internal medicine Instructor [employer] Pager [phone] <Jeanne Cr R - Last Filed: 11/20/17 18:02> Objective - Vital Signs/Intake and Output Vital Signs (last 24 hours): Temp Pulse Resp BP Pulse Ox 100 F H 95 H 20 125/74 91 L 11/20/17 14:00 11/20/17 14:00 11/20/17 14:00 11/20/17 14:00 11/20/17 14:00 Intake and Output: 11/20/17 11/20/17 06:59 18:59 Intake Total 680 600 Balance 680 600 - Medications Medications: Current Medications Acetaminophen (Tylenol 325mg Tab) 650 mg PO Q4 PRN PRN Reason: Pain, Mild (1-3) Last Admin: 11/18/17 14:39 Dose: 650 mg Alprazolam (Xanax) 0.25 mg PO BID PRN; Protocol PRN Reason: Anxiety Stop: 11/27/17 17:04 Docusate Sodium (Colace) 100 mg PO BID [facility] Last Admin: 11/20/17 17:47 Dose: 100 mg Famotidine (Pepcid) 40 mg PO HS [facility] Last Admin: 11/19/17 21:19 Dose: 40 mg Vancomycin HCl (Vancomycin 1gm) 1 gm in 250 mls @ 167 mls/hr IVPB Q12H [facility]; Protocol Last Admin: 11/20/17 08:25 Dose: 167 mls/hr Cefepime HCl (Maxipime 2gm) 2 gm in 100 mls @ 100 mls/hr IVPB Q12 [facility]; Protocol Stop: 11/24/17 22:01 Last Admin: 11/20/17 09:42 Dose: 100 mls/hr Morphine Sulfate (Morphine) 1 mg IVP Q6H PRN PRN Reason: Pain, severe (8-10) Last Admin: 11/18/17 19:41 Dose: 1 mg Ondansetron HCl (Zofran Inj) 4 mg IVP Q8H PRN PRN Reason: Nausea/Vomiting Pantoprazole Sodium (Protonix Ec Tab) 40 mg PO 0600 [facility] Last Admin: 11/20/17 05:15 Dose: 40 mg Polyethylene Glycol (Miralax) 17 gm PO DAILY [facility] Last Admin: 11/20/17 09:44 Dose: 17 gm Sennosides (Senokot Tab) 8.6 mg PO HS [facility] - Labs Labs: 11/20/17 06:20 11/20/17 06:20 PT 16.1 SECONDS (9.4-12.5) H 11/17/17 06:20 INR 1.39 11/17/17 06:20 APTT 30.9 Seconds (25.1-36.5) 11/17/17 06:20 Attending/Attestation - Attestation I have personally seen and examined this patient.: Yes I have fully participated in the care of the patient.: Yes I have reviewed all pertinent clinical information, including history, physical exam and plan: Yes Notes (Text): Patient seen and examined by me at 11:10AM with resident 11/19/17. Case including HPI, physical exam, and assessment and plan discussed with resident. Agree with above with following additions/corrections. Patient is a 56-year-old female with past medical history of GERD and gastritis the presented to the emergency room with abdominal pain. Patient states that she is still having pain in her right upper quadrant. Pain is constant and radiates to the epigastric area. Patient states it's worse with lying down. Patient also with continued shortness of breath. She states that the shortness of breath is constant. She states that the shortness of breath started after biopsy. No nausea or vomiting. No chest pain or palpitations. No headaches or dizziness. No dysuria. Still with constipation and decreased appetite. Physical exam: Gen: Awake and alert lying in bed in no acute distress HEENT: Normocephalic, atraumatic. Extraocular muscles intact, pupils equal reactive. No scleral icterus. Oropharynx is pink and moist. Neck is supple. Cardiovascular: Normal rhythm. Normal S1, S2. No murmurs, rubs, or gallops appreciated Pulmonary: Normal respiratory effort. Decreased breath sounds. No rhonchi, rales, or wheezing appreciated. Gastrointestinal: Soft, nondistended. Positive right upper quadrant and epigastric tenderness. Positive bowel sounds all 4 quadrants, no guarding. Musculoskeletal: Moves all extremities. No calf tenderness. No edema appreciated. Central nervous system: AAO x 3. CN 2-12 grossly intact Dermatologic: Skin warm and dry Assessment and plan: Patient is a 56-year-old female with past medical history of GERD, gastritis, and H. Pylori that presented to the emergency room with ab dominal pain. 1. Abdominal pain. Porcelain gallbladder. Liver mass. Status post liver biopsy 11/17/2017. Preliminary biopsy results showed poorly differentiated adenocarcinoma. Will consult oncology. Started on Zosyn and Vanco. Surgery following, recommendations appreciated. GI following, recommendations appreciated. CEA elevated at 466. CT abdomen pelvis per radiologist showed large irregular poorly defined hypodense mass in the right lobe of the liver adjacent to the gallbladder; this measures 47 x 50 to by 73 mm in size; there is calcification of the gallbladder wall consistent with a porcelain gallbladder, there are also densities in the gallbladder consistent with stones. Abdominal ultrasound per radiologist showed nodular hepatic contour; heterogeneous hepatic parenchyma; indeterminant 5 x 6.5 x 5.9 cm right hepatic lobe mass; right-sided hydronephrosis 2.8 x 2.6 x 3 cm right lower pole cyst; gallstones in her gallbladder wall calcifications; gallbladder sludge; gallbladder wall thickening/pericholecystic edema measuring approximately 4 mm. Will likely need liver protocol CT imaging in the future for surgical planning as per surgical team 2. Shortness of breath. Chest x-ray per radiologist showed no significant interval change compared to prior exam. CTA chest. Chest shows no focal consolidation seen in the lower posterior lobes consistent with pneumonia; there is a linear infiltrate in the right upper lobe; no evidence of pulmonary embolus. Continue with O2 via nasal cannula as needed. Started on Zosyn and Vanco. 3. Healthcare associated pneumonia. Started on Zosyn and Vanco. ID consulted, follow-up recommendations. Follow up procalcitonin. 4. Constipation. Continue on Colace and MiraLAX. Will give rectal dulcolax 5. Abnormal urinalysis. Patient is asymptomatic. Urine culture with no growth. Case was discussed in detail with the patient in German regarding current diagnosis and treatment plan.
[2017-11-19] MEDS: Cefepime IV 2 gm in NS 2 GM/100 ML BAG IVPB SCH (21:26)
[2017-11-19] MEDS: Vancomycin 1gm in NS 250ml 1 GM/250 ML BAG IVPB SCH (21:26)
[2017-11-19] MEDS ORDERED: Piperacillin/Tazobact 3.375 gm 100 ML IVPB SCH (22:00)
[2017-11-20] MEDS: Pantoprazole 40 mg EC Tab PO SCH (05:15)
--- NOTE | 2017-11-20 05:43 | CP.PCM.PN ---
<Noah Cr - Last Filed: 11/20/17 22:12> Subjective - Date & Time of Evaluation Date of Evaluation: 11/20/17 Time of Evaluation: 05:43 - Subjective Subjective: Noah Cr DO PGY1 - Internal Medicine [employer] - Hospital Progress Note Seen and examined at bedside; Pt. complained of RUQ abdominal pain that continued from yesterday, but has decreased. The pain does not radiate. As per patient, SOB is improving. Patient is tolerating diet and ambulating. Patient complains of not having a bowel movement since . She denies F/C, HERRERA, sore throat, nausea, vomiting, diarrhea, urinary complaints. Remainder of 12 system ROS is negative at this time. 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 Patient was further informed that heme/onc will follow up with her and be able to further answer questions regarding staging and prognosis. Patient stated she does not want her family members to know this information. Objective - Vital Signs/Intake and Output Vital Signs (last 24 hours): Temp Pulse Resp BP Pulse Ox 98.4 F 69 18 121/74 98 11/19/17 22:00 11/19/17 22:00 11/19/17 22:00 11/19/17 22:00 11/19/17 22:00 Intake and Output: 11/19/17 11/20/17 18:59 06:59 Intake Total 820 480 Balance 820 480 - Medications Medications: Current Medications Acetaminophen (Tylenol 325mg Tab) 650 mg PO Q4 PRN PRN Reason: Pain, Mild (1-3) Last Admin: 11/18/17 14:39 Dose: 650 mg Docusate Sodium (Colace) 100 mg PO BID IVONNE Last Admin: 11/19/17 18:08 Dose: 100 mg Famotidine (Pepcid) 40 mg PO HS IVONNE Last Admin: 11/19/17 21:19 Dose: 40 mg Vancomycin HCl (Vancomycin 1gm) 1 gm in 250 mls @ 167 mls/hr IVPB Q12H IVONNE; Protocol Last Admin: 11/19/17 21:26 Dose: 167 mls/hr Cefepime HCl (Maxipime 2gm) 2 gm in 100 mls @ 100 mls/hr IVPB Q12 IVONNE; Protocol Stop: 11/24/17 22:01 Last Admin: 11/19/17 21:26 Dose: 100 mls/hr Morphine Sulfate (Morphine) 1 mg IVP Q6H PRN PRN Reason: Pain, severe (8-10) Last Admin: 11/18/17 19:41 Dose: 1 mg Ondansetron HCl (Zofran Inj) 4 mg IVP Q8H PRN PRN Reason: Nausea/Vomiting Oxycodone/Acetaminophen (Percocet 5/325 Mg Tab) 1 tab PO Q4H PRN PRN Reason: Pain, moderate (4-7) Stop: 11/20/17 15:30 Last Admin: 11/19/17 21:19 Dose: 1 tab Pantoprazole Sodium (Protonix Ec Tab) 40 mg PO 0600 [facility] Last Admin: 11/20/17 05:15 Dose: 40 mg Polyethylene Glycol (Miralax) 17 gm PO DAILY [facility] Last Admin: 11/19/17 10:41 Dose: 17 gm - Labs Labs: 11/19/17 06:15 11/19/17 06:15 PT 16.1 SECONDS (9.4-12.5) H 11/17/17 06:20 INR 1.39 11/17/17 06:20 APTT 30.9 Seconds (25.1-36.5) 11/17/17 06:20 - Constitutional Appears: Well, Non-toxic, No Acute Distress - Head Exam Head Exam: ATRAUMATIC, NORMOCEPHALIC - Eye Exam Eye Exam: EOMI, PERRL - ENT Exam ENT Exam: Mucous Membranes Moist - Respiratory Exam Respiratory Exam: Bilateral rales appreciated in mid/lower lung ramos - Cardiovascular Exam Cardiovascular Exam: RRR, +S1, +S2 - GI/Abdominal Exam GI & Abdominal Exam: Soft, RUQ tenderness near biopsy site, Biopsy dressing on R abdominal wall CDI - Neurological Exam Neurological Exam: Alert, Awake, CN II-XII Intact, Oriented x3 - Psychiatric Exam Psychiatric exam: Normal Affect, Normal Mood - Skin Skin Exam: Dry, Intact, Normal Color, Warm Assessment and Plan - Assessment and Plan (Free Text) Assessment: 56F w/ PMH GERD and H.Pylori Gastritis presented to [facility] [place] on 11/14 for CC of LUQ + Epigastric abdominal pain. CTAP on adm showed R hepatic lobe mass, and procelain gallbladder. Patient underwent CT Guided biopsy of hepatic lobe mass. Prelim read shows poorly differentiated adenocarcinoma. At this time patient is aware of diagnosis, and heme/onc has been consulted. SOB w/ crackles - HCAP vs PE CTAP 11/19: Focal consolidation is seen in the posterior lower lobes consistent with pneumonia. There is a linear infiltrate in the right upper lobe No evidence of pulmonary embolus -Patient is still afebrile; w/ resolving leukocytosis and shortness of breath -C/w Vanc and Cefepime -ID Consulted appreciate reccs Hepatic Mass + Porcelain Gallbladder -CT A/P 11/14: large irregular poorly defined hypodense mass in the right lobe of the liver adjacent to the GB. Measures 47 x 52 x 73mm in in size. No features of hemangioma. 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 There are also densities in the GB consistent with stones. -Abd u/s 11/14: nodular hepatic contour; correlate clinically for cirrhosis. Heterogenous hepatic parenchyma. Indeterminate 5 x 6.5 x 5.9cm R hepatic lobe ma ss; malignant neoplasm must be excluded. R sided hydronephrosis 2.8 x 2.6 x 3cm R lower pole cyst. Gallstones and/or GB wall calcifications. GB sludge. GB wall thickening/pericholecystic edema measuring 4mm. Negative Doland. -IR liver biopsy Friday 11/17 - no complications reported; patient tolerating well after biopsy -C/w Morphine 1mg Q6 PRN severe pain -Prelim read as poorly differentiated adenocarcinoma -Patient was notified of results 11/20 -Xanax 0.25 BID PRN on board for anxiety -Heme/Onc Dr. Paris was consulted -Consult hepatobiliary surgery, Dr Bellamy * will likely need liver protocol CT imaging in the future for surgical planning as per surgical team -GI consult, Dr Mcclain * consideration should be made for possible cholecystectomy at some point -Will repeat Abd u/s to follow up reading of hydronephrosis on 11/14 US Constipation + Abd discomfort No BM since past C/w Colace + C/w Miralax + Start senokot HS One time phosphate enema given Most likely 2/2 opiate? C/w regular diet GI ppx: protonix 40mg po qd DVT ppx: SCDs for now; Lovenox held post biopsy Diet: regular Patient seen and examined w/ attending physician Dr. Jeanne Cr DO PGY1 Internal medicine [employer] Pager [phone] <Jeanne Cr R - Last Filed: 11/24/17 18:31> Objective - Vital Signs/Intake and Output Vital Signs (last 24 hours): Temp Pulse Resp BP Pulse Ox 98.9 F 93 H 20 112/72 100 11/22/17 14:00 11/22/17 14:00 11/22/17 14:00 11/22/17 14:00 11/22/17 14:00 - Labs Labs: 11/22/17 06:30 11/22/17 06:30 PT 16.1 SECONDS (9.4-12.5) H 11/17/17 06:20 INR 1.39 11/17/17 06:20 APTT 30.9 Seconds (25.1-36.5) 11/17/17 06:20 Attending/Attestation - Attestation I have personally seen and examined this patient.: Yes I have fully participated in the care of the patient.: Yes I have reviewed all pertinent clinical information, including history, physical exam and plan: Yes Notes (Text): Patient seen and examined by me at 2PM with resident 11/20/17. Case including HPI, physical exam, and assessment and plan discussed with resident. Agree with above with following additions/corrections. Patient is a 56-year-old female with past medical history of GERD and gastritis the presented to the emergency room with abdominal pain. Patient states that she is feeling better. States right upper quadrant pain and shortness of breath improved. No nausea or vomiting. No chest pain or palpitations.No headaches or dizziness. No dysuria. Still with constipation. Appetite slightly improved. Discussed at length with patient results of preliminary report showing poor differentiated adenocarcinoma. Patient aware that final results are pending. Discussed in Occitan. All questions answered. Physical exam: Gen: Awake and alert lying in bed in no acute distress HEENT: Normocephalic, atraumatic. Extraocular muscles intact, pupils equal reactive. No scleral icterus. Oropharynx is pink and moist. Neck is supple. Cardiovascular: Normal rhythm. Normal S1, S2. No murmurs, rubs, or gallops appreciated Pulmonary: Normal respiratory effort. Decreased breath sounds. No rhonchi, r ales, or wheezing appreciated. Gastrointestinal: Soft, nondistended. Improved right upper quadrant and epigastric tenderness. Positive bowel sounds all 4 quadrants, no guarding. Musculoskeletal: Moves all extremities. No calf tenderness. No edema appreciated. Central nervous system: AAO x 3. CN 2-12 grossly intact Dermatologic: Skin warm and dry Assessment and plan: Patient is a 56-year-old female with past medical history of GERD, gastritis, and H. Pylori that presented to the emergency room with abdominal pain. 1. Abdominal pain. Porcelain gallbladder. Liver mass. Status post liver biopsy 11/17/2017. Preliminary biopsy results showed poorly differentiated adenocarcinoma, final results pending. Oncology consulted, follow up recommendations. Continue Cefepime and Vanco. Surgery following, recommendations appreciated. GI following, recommendations appreciated. CEA elevated at 466. CT abdomen pelvis per radiologist showed large irregular poorly defined hypodense mass in the right lobe of the liver adjacent to the gallbladder; this measures 47 x 50 to by 73 mm in size; there is calcification of the gallbladder wall consistent with a porcelain gallbladder, there are also densities in the gallbladder consistent with stones. Abdominal ultrasound per radiologist showed nodular hepatic contour; heterogeneous hepatic parenchyma; indeterminant 5 x 6.5 x 5.9 cm right hepatic lobe mass; right-sided hydronephrosis 2.8 x 2.6 x 3 cm right lower pole cyst; gallstones in her gallbladder wall calcifications; gallbladder sludge; gallbladder wall thickening/pericholecystic edema measuring approximately 4 mm. Will likely need liver protocol CT imaging in the future for surgical planning as per surgical team 2. Shortness of breath. Improved. Continue Cefepime and Vanco. Chest x-ray per radiologist showed no significant interval change compared to prior exam. CTA chest. Chest shows no focal consolidation seen in the lower posterior lobes consistent with pneumonia; there is a linear infiltrate in the right upper lobe; no evidence of pulmonary embolus. Continue with O2 via nasal cannula as needed. 3. Healthcare associated pneumonia. ID following, recommendations appreciated. Continue Cefepime and vanco. Procalcitonin not elevated. 4. Constipation. Continue on Colace and MiraLAX. Will give enema. 5. Abnormal urinalysis. Patient is asymptomatic. Urine culture with no growth. 6. Hydronephrosis on CT abd/pelvis. Follow up renal ultrasound. Case was discussed in detail with the patient in Occitan regarding current diagnosis and treatment plan. All questions answered.
[2017-11-20 07:03] LABS: BASO # 0.02 K/mm3 (0.0-2.0); BASO % 0.2 % (0.0-3.0); EOS # 0.3 (0.0-0.7); EOS % 3.1 % (1.5-5.0); GRAN # 7.3 (1.4-6.5); GRAN % 70.5 % (50.0-68.0); HEMOGLOBIN 11.6 g/dL (12.0-16.0); LYMPH # 1.6 (1.2-3.4); LYMPH % 15.7 % (22.0-35.0); MEAN CORPUSCULAR HEMOGLOBIN 28.9 pg (25.0-35.0); MEAN PLATELET VOLUME 8.8 fl (7.0-11.0); MONO # 1.1 (0.1-0.6); MONO % 10.5 % (1.0-6.0); RBC 4.02 10^6/uL (3.5-6.1); RED CELL DISTRIBUTION WIDTH 12.4 % (11.5-14.5); WHITE BLOOD COUNT 10.4 10^3/ul (4.5-11.0)
[2017-11-20 07:10] LABS: ALBUMIN 3.8 g/dL (3.0-4.8); ALT/SGPT 34 U/L (7-56); AST/SGOT 33 U/L (14-36); BLOOD UREA NITROGEN 12 mg/dL (7-21); CALCIUM 8.9 mg/dL (8.4-10.5); GFR NON-AFRICAN AMERICAN > 60
[2017-11-20 07:22] VITALS: RESP 20
[2017-11-20] MEDS: Oxycodone/Acetaminophen 5/325 mg Tab PO PRN (08:24)
[2017-11-20] MEDS: Vancomycin 1gm in NS 250ml 1 GM/250 ML BAG IVPB SCH ×2 (08:25→21:40)
[2017-11-20] MEDS: Cefepime IV 2 gm in NS 2 GM/100 ML BAG IVPB SCH ×2 (09:42→21:36)
[2017-11-20] MEDS: POLYETHYLENE GLYCOL 3350 17 GM/Dose PACKET PO SCH (09:44)
--- NOTE | 2017-11-20 10:54 | CP.PCM.CON ---
<Maira Lester - Last Filed: 11/20/17 13:48> History of Present Illness - History of Present Illness History of Present Illness: PGY-3 Resident ID consult note for Dr. Rodriguez Reason for consult: PNA Patient is a 56 y/o female with PMHx of GERD, gastritis due to h pylori who initially presented with 4 days of left upper quadrant and epigastric pain, was found to have incidental right hepatic lobe mass, porcelain gallbladder, s/p biopsy of the hepatic lesions. Patient became short of breath, with Tmax of 100.9, thus CT chest was obtained revealing focal consolidation was seen in the posterior lower lobes consistent with pneumonia with linear infiltrate in the right upper lobe. ID is being consulted for pneumonia management. Patient was seating comfortably on the chair. Denies cough, fever, chills, no nausea, vomiting or diarrhea. PMHx: GERD, gastritis due to h pylori PSHx: x3, hysterectomy FMHx: non contributory Social: Denies tobacco, alcohol or illicit drug use. Allergis: NKDA Home meds: as per chart Review of Systems - Constitutional Constitutional: absent: Chills, Fever, Headache - EENT Eyes: absent: Blurred Vision, Change in Vision Ears: absent: Tinnitus, Dizziness Nose/Mouth/Throat: absent: Nasal Congestion, Nasal Discharge, Post Nasal Drip - Cardiovascular Cardiovascular: absent: Chest Pain, Chest Pain at Rest, Dyspnea on Exertion - Respiratory Respiratory: absent: Cough, Dyspnea, Hemoptysis, Wheezing, Pain on Inspiration - Gastrointestinal Gastrointestinal: absent: Abdominal Pain, Belching, Bloating, Heartburn, Nausea, Vomiting - Genitourinary Genitourinary: absent: Dysuria, Pyuria - Musculoskeletal Musculoskeletal: absent: Arthralgias - Integumentary Integumentary: absent: Rash - Neurological Neurological: absent: Dizziness, Headaches, Weakness Past Patient History - Infectious Disease Hx of Infectious Diseases: None - Tetanus Immunizations Tetanus Immunization: Unknown - Past Medical History & Family History Past Medical History?: Yes - Past Social History Smoking Status: Never Smoked Alcohol: None Drugs: Denies - CARDIAC Hx Cardiac Disorders: No - PULMONARY Hx Respiratory Disorders: No - NEUROLOGICAL Hx Neurological Disorder: No - HEENT Hx HEENT Problems: No - RENAL Hx Chronic Kidney Disease: No - ENDOCRINE/METABOLIC Hx Endocrine Disorders: No - HEMATOLOGICAL/ONCOLOGICAL Hx Blood Transfusions: No Hx Blood Transfusion Reaction: No - INTEGUMENTARY Hx Dermatological Problems: No - MUSCULOSKELETAL/RHEUMATOLOGICAL Hx Musculoskeletal Disorders: No - GASTROINTESTINAL Hx Gastrointestinal Disorders: Yes Hx Gastritis: Yes - GENITOURINARY/GYNECOLOGICAL Hx Genitourinary Disorders: No - PSYCHIATRIC Hx Psychophysiologic Disorder: No Hx Substance Use: No - SURGICAL HISTORY Hx Surgeries: Yes - ANESTHESIA Hx Anesthesia Reactions: No Hx Malignant Hyperthermia: No Meds Allergies/Adverse Reactions: Allergies Allergy/AdvReac Type Severity Reaction Status Date / Time No Known Allergies Allergy Verified 11/14/17 11:18 - Medications Medications: Current Medications Acetaminophen (Tylenol 325mg Tab) 650 mg PO Q4 PRN PRN Reason: Pain, Mild (1-3) Last Admin: 11/18/17 14:39 Dose: 650 mg Docusate Sodium (Colace) 100 mg PO BID [facility] Last Admin: 11/20/17 09:44 Dose: 100 mg Famotidine (Pepcid) 40 mg PO HS [facility] Last Admin: 11/19/17 21:19 Dose: 40 mg Vancomycin HCl (Vancomycin 1gm) 1 gm in 250 mls @ 167 mls/hr IVPB Q12H IVONNE; Protocol Last Admin: 11/20/17 08:25 Dose: 167 mls/hr Cefepime HCl (Maxipime 2gm) 2 gm in 100 mls @ 100 mls/hr IVPB Q12 IVONNE; Protocol Stop: 11/24/17 22:01 Last Admin: 11/20/17 09:42 Dose: 100 mls/hr Morphine Sulfate (Morphine) 1 mg IVP Q6H PRN PRN Reason: Pain, severe (8-10) Last Admin: 11/18/17 19:41 Dose: 1 mg Ondansetron HCl (Zofran Inj) 4 mg IVP Q8H PRN PRN Reason: Nausea/Vomiting Oxycodone/Acetaminophen (Percocet 5/325 Mg Tab) 1 tab PO Q4H PRN PRN Reason: Pain, moderate (4-7) Stop: 11/20/17 15:30 Last Admin: 11/20/17 08:24 Dose: 1 tab Pantoprazole Sodium (Protonix Ec Tab) 40 mg PO 0600 [facility] Last Admin: 11/20/17 05:15 Dose: 40 mg Polyethylene Glycol (Miralax) 17 gm PO DAILY [facility] Last Admin: 11/20/17 09:44 Dose: 17 gm Physical Exam - Constitutional Appears: No Acute Distress - Head Exam Head Exam: ATRAUMATIC, NORMAL INSPECTION, NORMOCEPHALIC - Eye Exam Eye Exam: EOMI, Normal appearance - ENT Exam ENT Exam: Mucous Membranes Moist - Neck Exam Neck exam: Positive for: Normal Inspection - Respiratory Exam Respiratory Exam: Clear to Auscultation Bilateral, NORMAL BREATHING PATTERN. absent: Rales, Rhonchi, Wheezes, Respiratory Distress, Stridor - Cardiovascular Exam Cardiovascular Exam: REGULAR RHYTHM, +S1, +S2. absent: Systolic Murmur - GI/Abdominal Exam GI & Abdominal Exam: Normal Bowel Sounds, Soft, Tenderness (upper right lateral aspect of the abdomen ). absent: Distended, Firm, Guarding, Rigid - Extremities Exam Extremities exam: Positive for: normal inspection - Back Exam Back exam: NORMAL INSPECTION - Neurological Exam Neurological exam: Alert, Oriented x3 - Psychiatric Exam Psychiatric exam: Normal Affect, Normal Mood - Skin Skin Exam: Dry, Normal Color, Warm Results - Vital Signs Recent Vital Signs: Last Vital Signs Temp 98 F 11/20/17 06:00 Pulse 86 11/20/17 06:00 Resp 20 11/20/17 06:00 BP 113/74 11/20/17 06:00 Pulse Ox 98 11/20/17 06:00 - Labs Result Diagrams: 11/20/17 06:20 11/20/17 06:20 Labs: Laboratory Results - last 24 hr 11/20/17 11/20/17 06:20 06:20 WBC 10.4 RBC 4.02 Hgb 11.6 L Hct 36.2 MCV 90.0 MCH 28.9 MCHC 32.0 RDW 12.4 Plt Count 330 MPV 8.8 Gran % 70.5 H Lymph % (Auto) 15.7 L [place] % (Auto) 10.5 H Eos % (Auto) 3.1 Baso % (Auto) 0.2 Gran # 7.30 H Lymph # (Auto) 1.6 [place] # (Auto) 1.1 H Eos # (Auto) 0.3 Baso # (Auto) 0.02 Sodium 139 Potassium 3.9 Chloride 101 Carbon Dioxide 28 Anion Gap 13 BUN 12 Creatinine 0.5 L Est GFR ( Amer) > 60 Est GFR (Non-Af Amer) > 60 Random Glucose 126 H Calcium 8.9 Total Bilirubin 0.5 AST 33 ALT 34 Alkaline Phosphatase 296 H Total Protein 7.6 Albumin 3.8 Globulin 3.8 Albumin/Globulin Ratio 1.0 L Assessment & Plan - Assessment and Plan (Free Text) Assessment: Patient is a 56 y/o admitted with right upper quadrant abdominal pain found to have incidental liver mass, porcelain gallbladder, and gallbladder wall thickening, patient was on Rocephin and flagyl, s/p IR guided biopsy, developed fever and sob, had CTA to rule out PE, and was found to have focal consolidation was seen in the posterior lower lobes consistent with pneumonia with linear infiltrate in the right upper lobe. Plan: HAP- will add procal, obtain blood cultures, sputum cultures. Antibiotic changed to cefepime and vanco to cover HAP. Leukocytosis resolved, will continue to monitor patient's clinical course. Medical management as per primary. Patient seen, examined and case discussed with Dr. Rodriguez. - Date & Time Date: 11/20/17 Time: 11:00 <Chaitanya Rodriguez - Last Filed: 11/20/17 21:08> Meds - Medications Medications: Current Medications Acetaminophen (Tylenol 325mg Tab) 650 mg PO Q4 PRN PRN Reason: Pain, Mild (1-3) Last Admin: 11/18/17 14:39 Dose: 650 mg Alprazolam (Xanax) 0.25 mg PO BID PRN; Protocol PRN Reason: Anxiety Stop: 11/27/17 17:04 Docusate Sodium (Colace) 100 mg PO BID IVON[facility] Last Admin: 11/20/17 17:47 Dose: 100 mg Famotidine (Pepcid) 40 mg PO HS [facility] Last Admin: 11/19/17 21:19 Dose: 40 mg Vancomycin HCl (Vancomycin 1gm) 1 gm in 250 mls @ 167 mls/hr IVPB Q12H IVONNE; Protocol Last Admin: 11/20/17 08:25 Dose: 167 mls/hr Cefepime HCl (Maxipime 2gm) 2 gm in 100 mls @ 100 mls/hr IVPB Q12 IVONNE; Protocol Stop: 11/24/17 22:01 Last Admin: 11/20/17 09:42 Dose: 100 mls/hr Morphine Sulfate (Morphine) 1 mg IVP Q6H PRN PRN Reason: Pain, severe (8-10) Last Admin: 11/18/17 19:41 Dose: 1 mg Ondansetron HCl (Zofran Inj) 4 mg IVP Q8H PRN PRN Reason: Nausea/Vomiting Pantoprazole Sodium (Protonix Ec Tab) 40 mg PO 0600 [facility] Last Admin: 11/20/17 05:15 Dose: 40 mg Polyethylene Glycol (Miralax) 17 gm PO DAILY [facility] Last Admin: 11/20/17 09:44 Dose: 17 gm Sennosides (Senokot Tab) 8.6 mg PO HS [facility] Results - Vital Signs Recent Vital Signs: Last Vital Signs Temp 100 F H 11/20/17 14:00 Pulse 95 H 11/20/17 14:00 Resp 20 11/20/17 14:00 BP 125/74 11/20/17 14:00 Pulse Ox 91 L 11/20/17 14:00 - Labs Result Diagrams: 11/20/17 06:20 11/20/17 06:20 Labs: Laboratory Results - last 24 hr 11/19/17 11/20/17 11/20/17 22:57 06:20 06:20 WBC 10.4 RBC 4.02 Hgb 11.6 L Hct 36.2 MCV 90.0 MCH 28.9 MCHC 32.0 RDW 12.4 Plt Count 330 MPV 8.8 Gran % 70.5 H Lymph % (Auto) 15.7 L [place] % (Auto) 10.5 H Eos % (Auto) 3.1 Baso % (Auto) 0.2 Gran # 7.30 H Lymph # (Auto) 1.6 [place] # (Auto) 1.1 H Eos # (Auto) 0.3 Baso # (Auto) 0.02 Sodium 139 Potassium 3.9 Chloride 101 Carbon Dioxide 28 Anion Gap 13 BUN 12 Creatinine 0.5 L Est GFR ( Amer) > 60 Est GFR (Non-Af Amer) > 60 Random Glucose 126 H Calcium 8.9 Total Bilirubin 0.5 AST 33 ALT 34 Alkaline Phosphatase 296 H Total Protein 7.6 Albumin 3.8 Globulin 3.8 Albumin/Globulin Ratio 1.0 L Procalcitonin 0.31 Assessment & Plan - Assessment and Plan (Free Text) Plan: Infectious Diseases Attending Physician Attestation Patient seen and examined, discussed with claim review medical director. I have the pertinent clinical findings, history of present illness, medical histories, physical exam and pertinent labs and imaging. I agree with the above findings, assessment and plan. In addition, we have started Vancomycin and Cefepime for bilateral lower lobe healthcare-associated pneumonia. Follow up PCT, blood, sputum cx and will monitor clinically.
[2017-11-20] MEDS: Morphine 2 mg/ml ISec IVP PRN (21:39)
[2017-11-21 07:16] LABS: ALBUMIN 3.6 g/dL (3.0-4.8); ALT/SGPT 33 U/L (7-56); AST/SGOT 43 U/L (14-36); BLOOD UREA NITROGEN 9 mg/dL (7-21); CALCIUM 8.9 mg/dL (8.4-10.5); GFR NON-AFRICAN AMERICAN > 60
[2017-11-21] MEDS: Vancomycin 1gm in NS 250ml 1 GM/250 ML BAG IVPB SCH ×2 (09:41→20:52)
[2017-11-21] MEDS: Cefepime IV 2 gm in NS 2 GM/100 ML BAG IVPB SCH ×2 (09:41→22:03)
[2017-11-21] MEDS: Pantoprazole 40 mg EC Tab PO SCH (09:42)
[2017-11-21] MEDS: POLYETHYLENE GLYCOL 3350 17 GM/Dose PACKET PO SCH (09:43)
[2017-11-21 10:01] LABS: BASO # 0.02 K/mm3 (0.0-2.0); BASO % 0.2 % (0.0-3.0); EOS # 0.3 (0.0-0.7); EOS % 2.6 % (1.5-5.0); GRAN # 7.29 (1.4-6.5); GRAN % 70.5 % (50.0-68.0); HEMOGLOBIN 11.6 g/dL (12.0-16.0); LYMPH # 1.6 (1.2-3.4); LYMPH % 15.8 % (22.0-35.0); MEAN CELL VOLUME 90.9 fl (80.0-105.0); MEAN CORPUSCULAR HEMOGLOBIN 29.4 pg (25.0-35.0); MEAN CORPUSCULAR HGB CONC 32.3 g/dl (31.0-37.0); MEAN PLATELET VOLUME 9.2 fl (7.0-11.0); MONO # 1.1 (0.1-0.6); MONO % 10.9 % (1.0-6.0); RBC 3.95 10^6/uL (3.5-6.1); RED CELL DISTRIBUTION WIDTH 12.4 % (11.5-14.5); WHITE BLOOD COUNT 10.4 10^3/ul (4.5-11.0)
--- NOTE | 2017-11-21 10:40 | US ---
Date of service: 11/21/2017 PROCEDURE: Ultrasound of the Kidneys HISTORY: Hydronephrosis COMPARISON: Abdominal ultrasound performed 11/14/17 TECHNIQUE: Sonogram of the kidneys. FINDINGS: RIGHT KIDNEY: Measures: 12.5 x 6.8 x 5.6 cm. Minimal fullness of the right renal collecting system. No obstructing calculus. 2.5 x 2.5 x 2.7 cm right lower pole renal cyst. LEFT KIDNEY: Measures: 13.9 x 6.2 x 6.0 cm. Minimal fullness of the left renal collecting system. No obstructing calculus. OTHER FINDINGS: None. IMPRESSION: 2.5 x 2.5 x 2.7 cm right renal cyst. Mild bilateral fullness of the renal collecting systems.
[2017-11-21] MEDS: Morphine 2 mg/ml ISec IVP PRN (14:47)
--- NOTE | 2017-11-21 19:34 | CP.PCM.PN ---
<Noah Cr - Last Filed: 11/21/17 19:31> Subjective - Date & Time of Evaluation Date of Evaluation: 11/21/17 Time of Evaluation: 19:31 - Subjective Subjective: Noah Cr DO PGY1 - Internal Medicine Customer Advocate - Hospital Progress Note Patient states that she has had 2 Bowel Movements since yesterday. She continues to have RUQ pain, which is decreased from yesterday and which she rates at 3- 4/10. She also states that her SOB has improved and now she is able to ambulate and move more without feeling SOB. She is tolerating diet. Patient denies F/C, HERRERA, CP, backpain, sore throat, nausea, vomiting, diarrhea, urinary frequency or dysuria. Remainder of 12 system ROS is otherwise negative. Objective - Vital Signs/Intake and Output Vital Signs (last 24 hours): Temp Pulse Resp BP Pulse Ox 99.2 F 89 20 108/67 93 L 11/21/17 14:00 11/21/17 14:00 11/21/17 14:00 11/21/17 14:00 11/21/17 14:00 Intake and Output: 11/21/17 11/22/17 18:59 06:59 Intake Total 480 480 Balance 480 480 - Medications Medications: Current Medications Acetaminophen (Tylenol 325mg Tab) 650 mg PO Q4 PRN PRN Reason: Pain, Mild (1-3) Last Admin: 11/18/17 14:39 Dose: 650 mg Alprazolam (Xanax) 0.25 mg PO BID PRN; Protocol PRN Reason: Anxiety Stop: 11/27/17 17:04 Last Admin: 11/20/17 21:40 Dose: 0.25 mg Docusate Sodium (Colace) 100 mg PO BID IVONNE Last Admin: 11/21/17 17:23 Dose: 100 mg Famotidine (Pepcid) 40 mg PO HS IVONNE Last Admin: 11/20/17 21:40 Dose: 40 mg Vancomycin HCl (Vancomycin 1gm) 1 gm in 250 mls @ 167 mls/hr IVPB Q12H IVONNE; Protocol Last Admin: 11/21/17 09:41 Dose: 167 mls/hr Cefepime HCl (Maxipime 2gm) 2 gm in 100 mls @ 100 mls/hr IVPB Q12 IVONNE; Protocol Stop: 11/24/17 22:01 Last Admin: 11/21/17 09:41 Dose: 100 mls/hr Morphine Sulfate (Morphine) 1 mg IVP Q6H PRN PRN Reason: Pain, severe (8-10) Last Admin: 11/21/17 14:47 Dose: 1 mg Ondansetron HCl (Zofran Inj) 4 mg IVP Q8H PRN PRN Reason: Nausea/Vomiting Pantoprazole Sodium (Protonix Ec Tab) 40 mg PO 0600 [facility] Last Admin: 11/21/17 09:42 Dose: 40 mg Polyethylene Glycol (Miralax) 17 gm PO DAILY [facility] Last Admin: 11/21/17 09:43 Dose: 17 gm Sennosides (Senokot Tab) 8.6 mg PO HS [facility] Last Admin: 11/20/17 21:40 Dose: 8.6 mg - Labs Labs: 11/21/17 09:00 11/21/17 06:45 PT 16.1 SECONDS (9.4-12.5) H 11/17/17 06:20 INR 1.39 11/17/17 06:20 APTT 30.9 Seconds (25.1-36.5) 11/17/17 06:20 - Constitutional Appears: Well, Non-toxic, No Acute Distress - Head Exam Head Exam: ATRAUMATIC, NORMOCEPHALIC - Eye Exam Eye Exam: EOMI, PERRL - ENT Exam ENT Exam: Mucous Membranes Moist - Respiratory Exam Respiratory Exam: Bilateral rales appreciated in mid/lower lung ramos - Cardiovascular Exam Cardiovascular Exam: RRR, +S1, +S2 - GI/Abdominal Exam GI & Abdominal Exam: Soft, RUQ tenderness near biopsy site, Biopsy dressing on R abdominal wall CDI - Neurological Exam Neurological Exam: Alert, Awake, CN II-XII Intact, Oriented x3 - Psychiatric Exam Psychiatric exam: Normal Affect, Normal Mood - Skin Skin Exam: Dry, Intact, Normal Color, Warm Assessment and Plan - Assessment and Plan (Free Text) Assessment: 56F w/ PMH GERD and H.Pylori Gastritis presented to [facility] on 11/14 for CC of LUQ + Epigastric abdominal pain. CTAP on adm showed R hepatic lobe mass, and procelain gallbladder. Patient underwent CT Guided biopsy of hepatic lobe mass. Prelim read shows poorly differentiated adenocarcinoma. At this time patient is aware of diagnosis, and heme/onc has seen the patient. Patient will be further observed on IV ABX 2/2 HCAP. SOB w/ crackles - HCAP vs PE CTAP 11/19: Focal consolidation is seen in the posterior lower lobes consistent with pneumonia. There is a linear infiltrate in the right upper lobe No evidence of pulmonary embolus -Patient continues to be afebrile w/o leukocytosis -C/w Vanc and Cefepime -Further monitor patient for 24 hours on IV ABX -ID Consulted appreciate reccs Hepatic Mass + Porcelain Gallbladder -CT A/P 11/14: large irregular poorly defined hypodense mass in the right lobe of the liver adjacent to the GB. Measures 47 x 52 x 73mm in in size. No features of hemangioma. 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 There are also densities in the GB consistent with stones. -Abd u/s 11/14: nodular hepatic contour; correlate clinically for cirrhosis. Heterogenous hepatic parenchyma. Indeterminate 5 x 6.5 x 5.9cm R hepatic lobe mass; malignant neoplasm must be excluded. R sided hydronephrosis 2.8 x 2.6 x 3cm R lower pole cyst. Gallstones and/or GB wall calcifications. GB sludge. GB wall thickening/pericholecystic edema measuring 4mm. Negative [place]. -IR liver biopsy Friday 11/17 - no complications reported; patient tolerating well after biopsy -C/w Morphine 1mg Q6 PRN severe pain -Prelim read as poorly differentiated adenocarcinoma -Patient was notified of results 11/20 -Xanax 0.25 BID PRN on board for anxiety -Heme/Onc Dr. Paris has seen patient and instructed to have follow up with him next week. Patient also has been set up with outpatient [facility] for an appointment. -Consult hepatobiliary surgery, Dr Bellamy * will likely need liver protocol CT imaging in the future for surgical planning as per surgical team -GI consult, Dr Mcclain * consideration should be made for possible cholecystectomy at some point Constipation + Abd discomfort Patient had BM last night; Keep Colace, Miralax, and Senokot on board ; can DC tomorrow Repeat abd u/s shows no hydronephrosis as initial abd u/s; no other acute findings C/w regular diet GI ppx: protonix 40mg po qd DVT ppx: SCDs for now; Lovenox held post biopsy Diet: regular Patient seen and examined w/ attending physician Dr. Jeanne Cr DO PGY1 Internal medicine Customer Advocate Pager [phone] <Jeanne Cr R - Last Filed: 11/24/17 18:39> Objective - Vital Signs/Intake and Output Vital Signs (last 24 hours): Temp Pulse Resp BP Pulse Ox 98.9 F 93 H 20 112/72 100 11/22/17 14:00 11/22/17 14:00 11/22/17 14:00 11/22/17 14:00 11/22/17 14:00 - Labs Labs: 11/22/17 06:30 11/22/17 06:30 PT 16.1 SECONDS (9.4-12.5) H 11/17/17 06:20 INR 1.39 11/17/17 06:20 APTT 30.9 Seconds (25.1-36.5) 11/17/17 06:20 Attending/Attestation - Attestation I have personally seen and examined this patient.: Yes I have fully participated in the care of the patient.: Yes I have reviewed all pertinent clinical information, including history, physical exam and plan: Yes Notes (Text): Patient seen and examined by me at 11:30AM with resident 11/21/17. Case including HPI, physical exam, and assessment and plan discussed with resident. Agree with above with following additions/corrections. Patient is a 56-year-old female with past medical history of GERD and gastritis the presented to the emergency room with abdominal pain. Patient states that she is feels much better today. States right upper quadrant pain much improved. Patient does not feel short of breath today. No nausea or vomiting. No chest pain or palpitations.No headaches or dizziness. No dysuria. Patient did have bowel movement. Appetite has improved. Physical exam: Gen: Awake and alert lying in bed in no acute distress HEENT: Normocephalic, atraumatic. Extraocular muscles intact, pupils equal re active. No scleral icterus. Oropharynx is pink and moist. Neck is supple. Cardiovascular: Normal rhythm. Normal S1, S2. No murmurs, rubs, or gallops appreciated Pulmonary: Normal respiratory effort. Decreased breath sounds. No rhonchi, rales, or wheezing appreciated. Gastrointestinal: Soft, nondistended. Improved right upper quadrant tenderness. No epigastric tenderness. Positive bowel sounds all 4 quadrants, no guarding. Musculoskeletal: Moves all extremities. No calf tenderness. No edema appreciated. Central nervous system: AAO x 3. CN 2-12 grossly intact Dermatologic: Skin warm and dry Assessment and plan: Patient is a 56-year-old female with past medical history of GERD, gastritis, and H. Pylori that presented to the emergency room with abdominal pain. 1. Abdominal pain. Porcelain gallbladder. Liver mass. Status post liver biopsy 11/17/2017. Preliminary biopsy results showed poorly differentiated adenocarcinoma, final results pending. Oncology following, recommendations ap preciated. Patient to follow up with Dr. Paris in office at scheduled appointment next week. Surgery following, recommendations appreciated. GI following, recommendations appreciated. CEA elevated at 466. CT abdomen pelvis per radiologist showed large irregular poorly defined hypodense mass in the right lobe of the liver adjacent to the gallbladder; this measures 47 x 50 to by 73 mm in size; there is calcification of the gallbladder wall consistent with a porcelain gallbladder, there are also densities in the gallbladder consistent with stones. Abdominal ultrasound per radiologist showed nodular hepatic contour; heterogeneous hepatic parenchyma; indeterminant 5 x 6.5 x 5.9 cm right hepatic lobe mass; right-sided hydronephrosis 2.8 x 2.6 x 3 cm right lower pole cyst; gallstones in her gallbladder wall calcifications; gallbladder sludge; gallbladder wall thickening/pericholecystic edema measuring approximately 4 mm. Will likely need liver protocol CT imaging in the future for surgical planning as per surgical team 2. Shortness of breath. Resolved. Continue Cefepime and Vanco. Chest x-ray per radiologist showed no significant interval change compared to prior exam. CTA chest. Chest shows no focal consolidation seen in the lower posterior lobes consistent with pneumonia; there is a linear infiltrate in the right upper lobe; no evidence of pulmonary embolus. Continue with O2 via nasal cannula as needed. 3. Healthcare associated pneumonia. ID following, recommendations appreciated. Continue Cefepime and vanco. Procalcitonin not elevated. Per ID, needs one more day of IV antibiotics. 4. Constipation. Resolved. Continue on Colace and MiraLAX. 5. Abnormal urinalysis. Patient is asymptomatic. Urine culture with no growth. 6. Hydronephrosis on CT abd/pelvis. Renal ultrasound per radiologist shows 2.5 x 2.5 x 2.7 cm right renal cyst, mild bilateral fullness of renal collecting systems. No hydronephrosis seen. Patient made aware of cyst. Case was discussed in detail with the patient in Frisian regarding current diagnosis and treatment plan. All questions answered.
--- NOTE | 2017-11-21 23:46 | CP.PCM.PN ---
Subjective - Date & Time of Evaluation Date of Evaluation: 11/21/17 Time of Evaluation: 13:45 - Subjective Subjective: Comfortable in bed, no fevers. Objective - Vital Signs/Intake and Output Vital Signs (last 24 hours): Temp Pulse Resp BP Pulse Ox 100 F H 95 H 20 125/74 91 L 11/20/17 14:00 11/20/17 14:00 11/20/17 14:00 11/20/17 14:00 11/20/17 14:00 Intake and Output: 11/20/17 11/21/17 18:59 06:59 Intake Total 600 480 Balance 600 480 - Medications Medications: Current Medications Acetaminophen (Tylenol 325mg Tab) 650 mg PO Q4 PRN PRN Reason: Pain, Mild (1-3) Last Admin: 11/18/17 14:39 Dose: 650 mg Alprazolam (Xanax) 0.25 mg PO BID PRN; Protocol PRN Reason: Anxiety Stop: 11/27/17 17:04 Docusate Sodium (Colace) 100 mg PO BID [facility] Last Admin: 11/20/17 17:47 Dose: 100 mg Famotidine (Pepcid) 40 mg PO HS [facility] Last Admin: 11/19/17 21:19 Dose: 40 mg Vancomycin HCl (Vancomycin 1gm) 1 gm in 250 mls @ 167 mls/hr IVPB Q12H IVONNE; Protocol Last Admin: 11/20/17 08:25 Dose: 167 mls/hr Cefepime HCl (Maxipime 2gm) 2 gm in 100 mls @ 100 mls/hr IVPB Q12 IVONNE; Protocol Stop: 11/24/17 22:01 Last Admin: 11/20/17 09:42 Dose: 100 mls/hr Morphine Sulfate (Morphine) 1 mg IVP Q6H PRN PRN Reason: Pain, severe (8-10) Last Admin: 11/18/17 19:41 Dose: 1 mg Ondansetron HCl (Zofran Inj) 4 mg IVP Q8H PRN PRN Reason: Nausea/Vomiting Pantoprazole Sodium (Protonix Ec Tab) 40 mg PO 0600 [facility] Last Admin: 11/20/17 05:15 Dose: 40 mg Polyethylene Glycol (Miralax) 17 gm PO DAILY [facility] Last Admin: 11/20/17 09:44 Dose: 17 gm Sennosides (Senokot Tab) 8.6 mg PO HS IVONNE - Labs Labs: 11/20/17 06:20 11/20/17 06:20 PT 16.1 SECONDS (9.4-12.5) H 11/17/17 06:20 INR 1.39 11/17/17 06:20 APTT 30.9 Seconds (25.1-36.5) 11/17/17 06:20 - Constitutional Appears: No Acute Distress, Chronically Ill - Head Exam Head Exam: NORMAL INSPECTION - Respiratory Exam Respiratory Exam: Decreased Breath Sounds - Cardiovascular Exam Cardiovascular Exam: +S1, +S2 - GI/Abdominal Exam GI & Abdominal Exam: Soft. absent: Tenderness Assessment and Plan - Assessment and Plan (Free Text) Plan: Assessment bilateral lower lobe healthcare-associated pneumonia liver mass porcelain gallbladder obesity with BMI 33 Plan continue Vancomycin and Cefepime day 2 to complete 4-7 days
--- NOTE | 2017-11-22 03:08 | CON ---
DATE: 11/21/2017 ONCOLOGY CONSULTATION HISTORY OF PRESENT ILLNESS: This is a 56-year-old woman who was having for about a week some right upper abdominal pain. She came to the emergency room and was found to have a porcelain gallbladder but also 7 cm mass in her liver on the x-ray. She was admitted, had a biopsy done, which showed a poorly differentiated carcinoma. We do not have all the final reports back on yet. The patient states that she has no weight loss, no change in her bowel habits and pain is only about a week old. PHYSICAL EXAMINATION: SKIN: No petechiae, no bruises. HEENT: Anicteric. NODES: Nonpalpable in the axillary, cervical, supraclavicular or inguinal regions. LUNGS: Clear at present. No vertebral tenderness. BREASTS: Shows no mass or discharge, no dimpling. ABDOMEN: Shows no ascites, some mild tenderness in the right upper quadrant but no rebound, no masses. EXTREMITIES: No edema. CENTRAL NERVOUS SYSTEM: No focal findings. LABORATORY DATA: The CAT scan did not show any metastatic cancer in the lungs or in the abdomen. Waiting for the final report on the tumor but what I told is to come and see me in the office on Friday at 11:00 and I gave her the appointment and then we will see most likely we will want to send to one of the major institutions where they can treat multispecialty multidisciplinary possibly hepatoma or liver mass. May also want to do a PET scan. We will let and furthermore she will definitely need a colonoscopy and upper endoscopy to rule out any GI primary. Fuad Paris MD
[2017-11-22] MEDS: Pantoprazole 40 mg EC Tab PO SCH (05:37)
[2017-11-22 07:46] LABS: BASO # 0.02 K/mm3 (0.0-2.0); BASO % 0.2 % (0.0-3.0); EOS # 0.2 (0.0-0.7); EOS % 2.1 % (1.5-5.0); GRAN # 8.25 (1.4-6.5); GRAN % 73.4 % (50.0-68.0); LYMPH # 1.4 (1.2-3.4); LYMPH % 12.6 % (22.0-35.0); MEAN CORPUSCULAR HEMOGLOBIN 29.3 pg (25.0-35.0); MEAN CORPUSCULAR HGB CONC 32.5 g/dl (31.0-37.0); MEAN PLATELET VOLUME 9.1 fl (7.0-11.0); MONO # 1.3 (0.1-0.6); MONO % 11.7 % (1.0-6.0); RBC 4.1 10^6/uL (3.5-6.1); RED CELL DISTRIBUTION WIDTH 12.3 % (11.5-14.5); WHITE BLOOD COUNT 11.2 10^3/ul (4.5-11.0)
[2017-11-22 08:16] LABS: ALBUMIN 3.8 g/dL (3.0-4.8); ALT/SGPT 38 U/L (7-56); AST/SGOT 53 U/L (14-36); BLOOD UREA NITROGEN 8 mg/dL (7-21); CALCIUM 9.3 mg/dL (8.4-10.5); GFR NON-AFRICAN AMERICAN > 60
[2017-11-22] MEDS: POLYETHYLENE GLYCOL 3350 17 GM/Dose PACKET PO SCH (10:31)
[2017-11-22] MEDS: Cefepime IV 2 gm in NS 2 GM/100 ML BAG IVPB SCH (10:31)
[2017-11-22] MEDS: Vancomycin 1gm in NS 250ml 1 GM/250 ML BAG IVPB SCH (10:45)
[2017-11-22 14:41] VITALS: BP 112/72; PULSE 93; TEMP 98.9; O2SAT 100
--- NOTE | 2017-11-22 22:07 | PN ---
DATE: 11/22/2017 SUBJECTIVE: The patient is in bed, in no acute distress, nontoxic. PHYSICAL EXAMINATION VITAL SIGNS: Temperature is 98, blood pressure is 112/70, respiratory rate of 20, heart rate of 93. HEENT: Unremarkable. NECK: Supple. LUNGS: Have decreased breath sounds. HEART: Normal S1 and S2. ABDOMEN: Soft. LABORATORY DATA: Reveals a white count of 11,000, hemoglobin of 12. Chemistries are noted. Urinalysis is reviewed. ASSESSMENT AND PLAN: A 56-year-old female was seen earlier today in [facility], bed 2, with bilateral lower lobe healthcare-associated pneumonia, liver mass, porcelain gallbladder, obesity, on vancomycin and cefepime day #3 with negative methicillin-resistant Staphylococcus aureus screen and negative blood cultures and we will discontinue the vancomycin. Complete 4-7 days of cefepime, today is day #3. Dr. Cr's note is reviewed. This patient who has porcelain gallbladder, hepatic mass, and Helicobacter pylori gastritis. The patient did have a biopsy of the liver mass which showed a poorly differentiated adenocarcinoma according to Dr. Cr's note. Phill Leonard MD
--- NOTE | 2017-11-22 22:37 | CP.PCM.DIS ---
Provider - Provider Date of Admission: 11/14/17 14:59 Attending physician: Dr. Jong Crowder Primary care physician: Dr. Trujillo Consults: Mario Bellamy Time Spent in preparation of Discharge (in minutes): 45 Diagnosis - Discharge Diagnosis (1) Porcelain gallbladder Status: Acute (2) HCAP (healthcare-associated pneumonia) Status: Acute (3) Constipation Status: Acute (4) Abdominal mass Status: Acute Hospital Course - Lab Results Lab Results: Micro Results 11/19/17 22:57 Blood-Venous Blood Culture - Preliminary NO GROWTH AFTER 48 HOURS 11/19/17 22:57 Blood-Venous Blood Culture - Preliminary NO GROWTH AFTER 48 HOURS 11/20/17 13:00 Naris MRSA Culture (Admit) - Final MRSA NOT DETECTED 11/14/17 18:06 Urine Urine Culture - Final No Growth (<1,000 CFU/ML) Most Recent Lab Values WBC 11.2 10^3/ul (4.5-11.0) H 11/22/17 06:30 RBC 4.10 10^6/uL (3.5-6.1) 11/22/17 06:30 Hgb 12.0 g/dL (12.0-16.0) 11/22/17 06:30 Hct 36.9 % (36.0-48.0) 11/22/17 06:30 MCV 90.0 fl (80.0-105.0) 11/22/17 06:30 MCH 29.3 pg (25.0-35.0) 11/22/17 06:30 MCHC 32.5 g/dl (31.0-37.0) 11/22/17 06:30 RDW 12.3 % (11.5-14.5) 11/22/17 06:30 Plt Count 359 10^3/uL (120.0-450.0) 11/22/17 06:30 MPV 9.1 fl (7.0-11.0) 11/22/17 06:30 Gran % 73.4 % (50.0-68.0) H 11/22/17 06:30 Lymph % (Auto) 12.6 % (22.0-35.0) L 11/22/17 06:30 Worth % (Auto) 11.7 % (1.0-6.0) H 11/22/17 06:30 Eos % (Auto) 2.1 % (1.5-5.0) 11/22/17 06:30 Baso % (Auto) 0.2 % (0.0-3.0) 11/22/17 06:30 Gran # 8.25 (1.4-6.5) H 11/22/17 06:30 Lymph # (Auto) 1.4 (1.2-3.4) 11/22/17 06:30 Worth # (Auto) 1.3 (0.1-0.6) H 11/22/17 06:30 Eos # (Auto) 0.2 (0.0-0.7) 11/22/17 06:30 Baso # (Auto) 0.02 K/mm3 (0.0-2.0) 11/22/17 06:30 PT 16.1 SECONDS (9.4-12.5) H 11/17/17 06:20 INR 1.39 11/17/17 06:20 APTT 30.9 Seconds (25.1-36.5) 11/17/17 06:20 Sodium 137 mmol/L (132-148) 11/22/17 06:30 Potassium 4.0 mmol/L (3.6-5.0) 11/22/17 06:30 Chloride 98 mmol/L (98-107) 11/22/17 06:30 Carbon Dioxide 29 mmol/L (21-33) 11/22/17 06:30 Anion Gap 15 (10-20) 11/22/17 06:30 BUN 8 mg/dL (7-21) 11/22/17 06:30 Creatinine 0.5 mg/dl (0.7-1.2) L 11/22/17 06:30 Est GFR ( Amer) > 60 11/22/17 06:30 Est GFR (Non-Af Amer) > 60 11/22/17 06:30 Random Glucose 123 mg/dL (70-110) H 11/22/17 06:30 Hemoglobin A1c 7.1 % (4.2-6.5) H 11/14/17 12:31 Calcium 9.3 mg/dL (8.4-10.5) 11/22/17 06:30 Phosphorus 4.0 mg/dL (2.5-4.5) 11/15/17 05:00 Magnesium 2.2 mg/dL (1.7-2.2) 11/15/17 05:00 Total Bilirubin 0.5 mg/dL (0.2-1.3) 11/22/17 06:30 AST 53 U/L (14-36) H D 11/22/17 06:30 ALT 38 U/L (7-56) 11/22/17 06:30 Alkaline Phosphatase 364 U/L (38-126) H 11/22/17 06:30 Total Protein 7.8 g/dL (5.8-8.3) 11/22/17 06:30 Albumin 3.8 g/dL (3.0-4.8) 11/22/17 06:30 Globulin 3.9 gm/dL 11/22/17 06:30 Albumin/Globulin Ratio 1.0 (1.1-1.8) L 11/22/17 06:30 Triglycerides 132 mg/dL (35-160) 11/15/17 05:00 Cholesterol 124 mg/dL (130-200) L 11/15/17 05:00 LDL Cholesterol Direct 78 mg/dL (0-129) 11/15/17 05:00 HDL Cholesterol 23 mg/dL (29-60) L 11/15/17 05:00 Amylase 55 U/L (35-125) 11/14/17 12:31 Lipase 130 U/L (23-300) 11/14/17 12:31 Alpha Fetoprotein 3.5 ng/mL (0.0-7.5) 11/15/17 12:00 Carcinoembryonic Ag 466.0 ng/mL (0.0-3.0) H 11/15/17 05:00 CA 19-9 Antigen < 1.4 U/mL (0-37) 11/15/17 05:00 Procalcitonin 0.31 NG/ML (0.19-0.49) 11/19/17 22:57 Urine Color Yellow (YELLOW) 11/14/17 12:31 Urine Appearance Clear (CLEAR) 11/14/17 12:31 Urine pH 6.0 (4.7-8.0) 11/14/17 12:31 Ur Specific [place] >= 1.030 (1.005-1.035) 11/14/17 12:31 Urine Protein 30 mg/dL (<30 mg/dL) H 11/14/17 12:31 Urine Glucose (UA) Negative mg/dL (NEGATIVE) 11/14/17 12:31 Urine Ketones Negative mg/dL (NEGATIVE) 11/14/17 12:31 Urine Blood Trace-lysed (NEGATIVE) H 11/14/17 12:31 Urine Nitrate Negative (NEGATIVE) 11/14/17 12:31 Urine Bilirubin Negative (NEGATIVE) 11/14/17 12:31 Urine Urobilinogen 4.0 E.U./dL (<1 E.U./dL) H 11/14/17 12:31 Ur Leukocyte Esterase Negative Dominguez/uL (NEGATIVE) 11/14/17 12:31 Urine RBC 2 - 5 /hpf (0-2) 11/14/17 12:31 Urine WBC 0 - 2 /hpf (0-6) 11/14/17 12:31 Ur Epithelial Cells 4 - 5 /hpf (0-5) 11/14/17 12:31 Amorphous Sediment Few 11/14/17 12:31 Urine Bacteria Many (NEG) 11/14/17 12:31 Urine Other Uyeast 11/14/17 12:31 Hepatitis A IgM Ab Negative (NEGATIVE) 11/15/17 05:00 Hep Bs Antigen Negative (NEGATIVE) 11/15/17 05:00 Hep B Core IgM Ab Negative (NEGATIVE) 11/15/17 05:00 Hepatitis C Antibody Negative (NEGATIVE) 11/15/17 05:00 - Hospital Course Hospital Course: Noah Cr DO PGY1 - Internal Medicine Jewelry Inspector - Hospital DC Summary: 56 y/o female, with PMH of GERD, gastritis, presents to the ED with 4 days of LUQ and epigastric abdomial pain, sharp, constant, radiates to the back, progressive, now 7/10, worsens by food and no alleviating factors. Patient was diagnosed with gastritis with positive urea breath test 2 weeks ago. Patient received triple therapy for H pylori infection that has recently completed 4 days ago. Patient did not received medical therapy for the pain. Patient admits to nausea but no diarrhea. Can't tolerate food in her stomach. She's never had EGD/colonscopy. She denied black/dark stool, hematochezia, melena, hemoptysis, hematemesis, change in stool caliber, bowel movement changes, use of NSAID, weight loss. CEA is 466 (H), HgbA1c is 7.1 (H). CA19-9, AFP both within normal limits, and hepatitis panel negative, CTAP showed R hepatic lobe mass, porcelain gallbladder, and colelithiasis. 11/17, Pt had liver biopsy CT Prelim results showed poorly differentiated adenocarcinoma. Post biopsy patient complaining of RUQ abd pain and SOB which exacerbated RUQ pain. CTAP was performed and showed findings consistent with PNA. Patient was treated w/ IV ABX for HCAP; Empirically started w/ Vancomcin, and zosyn; subsequently on Vanc/Cefepime; followed by discharge home on levaquin as per infectious disease. Her alk phos has been elevated throughout hospitalization levels 226-300. Patient also on percocet for RUQ pain; eventually became constipated and required bowel regimen. Prelim findings were communicated to patient and subsequently heme/onc was consulted. On morning of discharge, she was seen and examined; SOB was improving, RUQ was improving, and patient no longer constipated. ROS was otherwise negative. Medications were reconciled, and She was given the following instructions upon discharge: During your hospital course, a sample of your liver tissue found cancer in your liver; as well as gallbladder disease It is very crucial that you follow up with your regulatory submissions associate/oncologist Dr. Fuad Martin at [address] [place] [address] on FridayNovember 26 at 11AM Please follow up with your primary care doctor, Dr. Trujillo, within 3-5 days. Your biopsy results will need to be follow If you cannot make arrangements for your primary care doctor above, please call [phone] to schedule a follow up appointment at [facility] at [facility] Please follow up with your Surgeon Dr. Bellamy within 2 weeks of discharge. Please call [phone] to schedule an appointment and ask for Dr. Bellamy Service Please start taking the following medication: Levaquin (antibiotic) 500mg - Every day for three days If your symptoms worsen or new concerning symptoms arise; please go to the nearest emergency department immediately. ------ Beninese: Truong soriano tratamiento hospitalario, tracy muestra de soriano tejido heptico encontr cncer en soriano hgado; as noelle la enfermedad de la vescula biliar Es muy importante que august un seguimiento con soriano hematlogo / onclogo Dr. Fuad Martin en [address] el mircoles 17 a las 11AM. Pngase en contacto con soriano mdico de atencin primaria, el Dr. Trujillo, en un plazo de 3 a 5 harry. Los resultados de soriano biopsia debern seguirse. Si no puede hacer los arreglos para soriano mdico de atencin primaria antes [facility] ionado, llame al [phone] para programar tracy fabio de seguimiento en [facility] en el [facility] Por favor august un seguimiento con soriano cirujano Dr. Bellamy dentro de las 2 semanas posteriores al mikel. Llame al [phone] para programar tracy fabio y preguntar por el Servicio del Dr. Bellamy Por favor comience a laurel el siguiente medicamento: Levaquin (antibitico) 500 mg - Todos los harry truong arun harry Si joel sntomas empeoran o surgen nuevos sntomas relacionados; Dirjase al departamento de emergencias ms cercano inmediatamente. Patient is medically optimized for discharge at this time. - Date & Time of H&P Date of H&P: 11/14/17 Time of H&P: 14:10 Discharge Exam - Head Exam Head Exam: NORMAL INSPECTION - Eye Exam Eye Exam: EOMI, Normal appearance, PERRL - Respiratory Exam Respiratory Exam: Rales, NORMAL BREATHING PATTERN. absent: Respiratory Distress - Cardiovascular Exam Cardiovascular Exam: RRR, +S1, +S2 - GI/Abdominal Exam GI & Abdominal Exam: Normal Bowel Sounds, Tenderness (mild RUQ tenderness on exam) - Extremities Exam Extremities exam: normal inspection, pedal pulses present - Neurological Exam Neurological exam: Alert, CN II-XII Intact, Normal Gait, Oriented x3 - Psychiatric Exam Psychiatric exam: Anxious - Skin Skin Exam: Dry, Intact, Normal Color, Warm Discharge Plan - Discharge Medications Prescriptions: Levofloxacin [Levaquin] 500 mg PO DAILY 3 Days #3 tablet - Follow Up Plan Condition: FAIR Disposition: HOME/ ROUTINE Patient education suggested?: Yes Instructions: Acute Abdomen (Belly Pain), Liver Cancer (DC) Additional Instructions: During your hospital course, a sample of your liver tissue found cancer in your liver; as well as gallbladder disease It is very crucial that you follow up with your regulatory submissions associate/oncologist Dr. Fuad Martin at [address] [facility] on FridayNovember 26 at 11AM Please follow up with your primary care doctor, Dr. Trujillo, within 3-5 days. Your biopsy results will need to be follow If you cannot make arrangements for your primary care doctor above, please call [phone] to schedule a follow up appointment at [facility] at [facility] Please follow up with your Surgeon Dr. Bellamy within 2 weeks of discharge. Please call [phone] to schedule an appointment and ask for Dr. Bellamy Service Please start taking the following medication: Levaquin (antibiotic) 500mg - Every day for three days If your symptoms worsen or new concerning symptoms arise; please go to the near [facility] emergency department immediately. ------ Beninese: Truong soriano tratamiento hospitalario, tracy muestra de soriano tejido heptico encontr cncer en soriano hgado; as noelle la enfermedad de la vescula biliar Es muy importante que august un seguimiento con soriano hematlogo / onclogo Dr. Fuad Martin en [address] [place] [address] el mircoles a las 11AM. Pngase en contacto con soriano mdico de atencin primaria, el Dr. Trujillo, en un plazo de 3 a 5 harry. Los resultados de soriano biopsia debern seguirse. Si no puede hacer los arreglos para soriano mdico de atencin primaria antes mencionado, llame al [phone] para programar tracy fabio de seguimiento en [facility] en el [facility] Por favor august un seguimiento con soriano cirujano Dr. Bellamy dentro de las 2 semanas posteriores al mikel. Llame al [phone] para programar tracy fabio y preguntar por el Servicio del Dr. Bellamy Por favor comience a laurel el siguiente medicamento: Levaquin (antibitico) 500 mg - Todos los harry truong arun harry Si joel sntomas empeoran o surgen nuevos sntomas relacionados; Dirjase al departamento de emergencias ms cercano inmediatamente. Referrals: Nazario Trujillo MD [Staff Provider] - Angelo Bellamy MD [Staff Provider] - Stephanie Green MD [Medical Doctor] -
== END 2017-11-22 19:13 | disposition home or self-care (01) | DRG 557 ==
LOC: ED 11:00 → ERH 14:59 → 5RNO 18:16
PROVIDERS: ADMIT Internal Medicine; ATTEND Hospitalist
PROC: 0FB03ZX Excision of Liver, Percutaneous Approach, Diagnostic (ICD-10-PCS; principal; 2017-11-17 12:00)
DX: C22.7 Other specified carcinomas of liver (principal); J18.9 Pneumonia, unspecified organism; N13.30 Unspecified hydronephrosis; N39.0 Urinary tract infection, site not specified; K80.20 Calculus of gallbladder without cholecystitis without obstruction; K29.70 Gastritis, unspecified, without bleeding; K21.9 Gastro-esophageal reflux disease without esophagitis; K59.00 Constipation, unspecified; K82.8 Other specified diseases of gallbladder; F41.9 Anxiety disorder, unspecified; N28.1 Cyst of kidney, acquired; Y95 Nosocomial condition; E66.9 Obesity, unspecified; Z68.33 Body mass index [BMI] 33.0-33.9, adult

== ENCOUNTER 2017-11-27 19:12 | Inpatient (IN) | payer MEDICAID, OTHER ==
[2017-11-27 19:17] VITALS: BMI 29.2
[2017-11-27] MEDS ORDERED: Sodium Chloride 0.9% 1,000 ML IV STA (19:35)
[2017-11-27] MEDS ORDERED: Morphine 2 mg/ml ISec IVP STA (19:49)
[2017-11-27 20:30] LABS: VENOUS BLOOD GAS BASE EXCESS 3.4 mmol/L (0.0-2.0); VENOUS BLOOD GAS PO2 87 mm/Hg (30-55); VENOUS BLOOD PH 7.48 (7.32-7.43)
[2017-11-27 20:52] LABS: BASO # 0.03 K/mm3 (0.0-2.0); BASO % 0.2 % (0.0-3.0); EOS # 0.2 (0.0-0.7); EOS % 1.3 % (1.5-5.0); GRAN # 10.73 (1.4-6.5); GRAN % 75.3 % (50.0-68.0); HEMOGLOBIN 11.9 g/dL (12.0-16.0); MEAN CELL VOLUME 88.4 fl (80.0-105.0); MEAN CORPUSCULAR HEMOGLOBIN 28.7 pg (25.0-35.0); MEAN CORPUSCULAR HGB CONC 32.5 g/dl (31.0-37.0); MEAN PLATELET VOLUME 9.2 fl (7.0-11.0); MONO # 1.3 (0.1-0.6); MONO % 9.2 % (1.0-6.0); RBC 4.14 10^6/uL (3.5-6.1); RED CELL DISTRIBUTION WIDTH 12.4 % (11.5-14.5); WHITE BLOOD COUNT 14.3 10^3/ul (4.5-11.0)
[2017-11-27 20:53] LABS: ALT/SGPT 62 U/L (7-56); AST/SGOT 72 U/L (14-36); BLOOD UREA NITROGEN 11 mg/dL (7-21); CALCIUM 9.3 mg/dL (8.4-10.5); GFR NON-AFRICAN AMERICAN > 60; LIPASE 127 U/L (23-300)
--- NOTE | 2017-11-27 20:54 | ED PDOC ---
Arrival/HPI - General Historian: Patient - History of Present Illness Narrative History of Present Illness (Text): 11/27/17 20:45 56yr old female presents today with worsening right upper abdominal pain. pt c/o nausea. no vomiting. pt denies dizziness or weakness. pt states the pain in the right side of the abdomen is in the same location but pain is worsening. pt states she hasnt taken any medications for pain at home. pt also states she has slight cough. pt c/o chills at home. pt states she feels just slightly short of breath when walking, but she states it is due to the pain and is unchanged from previous admission. pt states she hasnt been able to f/u with specialist for her new diagnosis of CA. pt denies back pain. denies urinary symptoms. no other complaints. <Minnie Lopez - Last Filed: 11/28/17 02:10> <Florencia Sy - Last Filed: 11/29/17 07:00> - General Chief Complaint: Abdominal Pain Time Seen by Provider: 11/27/17 19:34 Past Medical History - Provider Review Nursing Documentation Reviewed: Yes - Travel History Have you recently traveled outside [place] w/in the past 3 mons?: No - Infectious Disease Hx of Infectious Diseases: None - Tetanus Immunization Tetanus Immunization: Unknown - Cardiac Hx Cardiac Disorders: No - Pulmonary Hx Respiratory Disorders: No - Neurological Hx Neurological Disorder: No - HEENT Hx HEENT Disorder: No - Renal Hx Renal Disorder: No - Endocrine/Metabolic Hx Endocrine Disorders: No - Hematological/Oncological Hx Blood Transfusions: No Hx Blood Transfusion Reaction: No - Integumentary Hx Dermatological Disorder: No - Musculoskeletal/Rheumatological Hx Musculoskeletal Disorders: No - Gastrointestinal Hx Gastrointestinal Disorders: Yes Hx Gastritis: Yes Other/Comment: Gallstones - Genitourinary/Gynecological Hx Genitourinary Disorders: No - Psychiatric Hx Psychophysiologic Disorder: No Hx Substance Use: No - Surgical History Other/Comment: liver biopsy - Anesthesia Hx Anesthesia Reactions: No Hx Malignant Hyperthermia: No <Minnie Lopez - Last Filed: 11/28/17 02:10> Family/Social History - Physician Review Nursing Documentation Reviewed: Yes Family/Social History: Unknown Family HX Smoking Status: Never Smoked Hx Alcohol Use: No Hx Substance Use: No <Minnie Lopez - Last Filed: 11/28/17 02:10> Allergies/Home Meds <Minnie Lopez - Last Filed: 11/28/17 02:10> <Florencia Sy - Last Filed: 11/29/17 07:00> Allergies/Adverse Reactions: Allergies No Known Allergies Allergy (Verified 11/14/17 11:18) Home Medications: Home Meds Medication Instructions Recorded Confirmed RX: No Known Home Med 11/27/17 11/27/17 Review of Systems - Review of Systems Constitutional: Fatigue, Other (chills) Respiratory: Cough. absent: SOB Cardiovascular: absent: Chest Pain, Palpitations Gastrointestinal: Abdominal Pain, Nausea. absent: Constipation, Diarrhea, Vomiting Genitourinary Female: absent: Dysuria Musculoskeletal: absent: Arthralgias, Back Pain, Neck Pain Skin: absent: Rash, Pruritis Neurological: absent: Headache, Dizziness Psychiatric: absent: Anxiety, Depression, Suicidal Ideation <Minnie Lopez - Last Filed: 11/28/17 02:10> Physical Exam Vital Signs Reviewed: Yes Vital Signs Temp Pulse Resp BP Pulse Ox 11/27/17 20:00 100.8 F H 11/27/17 19:21 99.9 F H 122 H 18 128/80 94 L Temperature: Febrile Blood Pressure: Normal Pulse: Tachycardic Respiratory Rate: Normal Appearance: Positive for: Well-Appearing, Non-Toxic, Comfortable Pain Distress: None Mental Status: Positive for: Alert and Oriented X 3 - Systems Exam Head: Present: Atraumatic Mouth: Present: Moist Mucous Membranes Neck: Present: Normal Range of Motion Respiratory/Chest: Present: Good Air Exchange, Rhonchi. No: Clear to Auscultation, Respiratory Distress, Accessory Muscle Use, Wheezes, Decreased Breath Sounds, Rales, Retracting, Tachypneic, Tender to Palpation Cardiovascular: Present: Tachycardic. No: Murmurs Abdomen: Present: Tenderness (minimal ruq tenderness; ), Normal Bowel Sounds. No: Distention, Peritoneal Signs, Rebound, Guarding Back: Present: Normal Inspection. No: CVA Tenderness, Midline Tenderness, Paraspinal Tenderness Upper Extremity: Present: Normal ROM Lower Extremity: Present: Normal Inspection, Normal ROM Neurological: Present: GCS=15, Speech Normal, Gait Normal Skin: Present: Warm, Dry, Normal Color. No: Rashes Psychiatric: Present: Alert, Oriented x 3 <Minnie Lopez - Last Filed: 11/28/17 02:10> Vital Signs Temp Pulse Resp BP Pulse Ox 11/28/17 00:10 20 11/27/17 23:14 83 18 133/74 95 11/27/17 20:00 100.8 F H 11/27/17 19:21 99.9 F H 122 H 18 128/80 94 L <SyJustoFlorencia - Last Filed: 11/29/17 07:00> Medical Decision Making ED Course and Treatment: 56yr old female presenting with worsening RUQ abd pain. found to be febrile and tachy in er. pt given morphine for pain, toradol for pain, tylenol for fever. pt given NS IV BOLUS. pt reassesment; after medications pt feeling much better. denies pain, no cp or sob. US: COMMENTS: Correlated to prior CT report 11/14/17. Images are not available. The liver shows increased echogenicity without evidence of mass or defect. Right hepatic lobe heterogeneous mass measuring 11.42 x 9.98 x 7.64 cm. There is no intra or extrahepatic biliary ductal dilatation. The common bile duct measures 0.98 cm. The gallbladder shows gallstones. The gallbladder wall is not thickened measuring 0.31 cm and there is no pericholecystic fluid. There is no abdominal ascites. Peripancreatic lymph node is seen at images 79-82 measuring 1.18 x 0.94 cm. The aorta and inferior vena cava are not visualized. The spleen is of uniform echo texture and appears enlarged measuring 15.35 x 4.81 cm. The right kidney measures 10.15 x 4.94 x 6.49 cm and the left kidney measures 10.80 x 6.49 x 5.89 cm. Both kidneys are free of hydronephrosis. Right renal cyst measures 2.29 x 1.99 x 1.99 cm. IMPRESSION: Right hepatic lobe heterogeneous mass measuring 11.42 x 9.98 x 7.64 cm. Cholelithiasis. Gallbladder wall thickening suggests chronic cholecystitis. Peripancreatic lymph node. Direct correlation with CT is recommended. 11/27/17 21:00 spoke with vice president of marketing dr. oconnor; discussed the case in depth. pt was seen at beside by dr. Oconnor. cbc; wbc:14.3 CMP wnl lactate; 1.6 cxr; + right lower infiltrate ? pleural effusion; unchanged from previous cxr. pt started on vancomycin and zosyn IV pt reassessment; pt feeling MUCH better after medications; vitals stable. o2 saturation 93-94% on room air. pt placed on nasal canula. pt in no distress. resting comfortably in er. no distress. all results discussed with patient. case discussed with dr. marcano. states patient can be admitted to med/surg. case discussed with medical record clerk. case discussed with dr. Lory sy in depth. impression; leukocytosis, pneumonia, chronic cholecystitis admit to med/surg. - Lab Interpretations Lab Results: Lab Results 11/27/17 20:27: pO2 87 H, VBG pH 7.48 H, VBG pCO2 36.0 L, VBG HCO3 26.8, VBG Total CO2 27.9, VBG O2 Sat (Calc) 98.2 H, VBG Base Excess 3.4 H, VBG Potassium 3.9, Sodium 134.0, Chloride 102.0, Glucose 145 H, Lactate 1.6, FiO2 21.0, Venous Blood Potassium 3.9 - RAD Interpretation Radiology Orders: 11/27/17 19:36 ABDOMEN COMPLETE [US] Stat 11/27/17 20:41 CHEST PORTABLE [RAD] Stat - Medication Orders Current Medication Orders: Discontinued Medications Sodium Chloride (Sodium Chloride 0.9%) 1,000 mls @ 999 mls/hr IV .Q1H1M STA Stop: 11/27/17 20:35 Last Admin: 11/27/17 20:23 Dose: 999 mls/hr eMAR Start Stop Document 11/27/17 20:23 HI (Rec: 11/27/17 20:23 [facility]'[id number]) Intravenous Solution Start Date 11/27/17 Start Time 20:23 Ketorolac Tromethamine (Toradol) 30 mg IVP STAT STA Stop: 11/27/17 19:49 Last Admin: 11/27/17 20:23 Dose: 30 mg MAR Pain Assessment Document 11/27/17 20:23 HI (Rec: 11/27/17 20:23 [id number] Pain Reassessment Is this a pain reassessment? No Sleep Is patient sleeping during reassessment? No Presence of Pain Presence of Pain Yes IVP Administration Document 11/27/17 20:23 HI (Rec: 11/27/17 20:23 [facility][id number]) Charges for Administration # of IVP Administrations 1 Morphine Sulfate (Morphine) 2 mg IVP STAT STA Stop: 11/27/17 19:50 Last Admin: 11/27/17 20:22 Dose: 2 mg MAR Pain Assessment Document 11/27/17 20:22 AL (Rec: 11/27/17 20:23 [facility]'[id number]) Pain Reassessment Is this a pain reassessment? No Sleep Is patient sleeping during reassessment? No Presence of Pain Presence of Pain Yes IVP Administration Document 11/27/17 20:22 AL (Rec: 11/27/17 20:23 [facility]'[id number]) Charges for Administration # of IVP Administrations 1 <Minnie Lopez T - Last Filed: 11/28/17 02:10> - Lab Interpretations Microbiology Results: Microbiology Results 11/27/17 20:20 Blood Blood Culture - Preliminary NO GROWTH AFTER 24 HOURS 11/27/17 20:00 Blood Blood Culture - Preliminary NO GROWTH AFTER 24 HOURS Lab Results: 11/27/17 20:20 11/27/17 20:20 Lab Results 11/27/17 20:27: pO2 87 H, VBG pH 7.48 H, VBG pCO2 36.0 L, VBG HCO3 26.8, VBG Total CO2 27.9, VBG O2 Sat (Calc) 98.2 H, VBG Base Excess 3.4 H, VBG Potassium 3.9, Glucose 145 H, Lactate 1.6, FiO2 21.0, Sodium 134.0, Chloride 102.0, Venous Blood Potassium 3.9 11/27/17 20:20: WBC 14.3 H D, RBC 4.14, Hgb 11.9 L, Hct 36.6, MCV 88.4, MCH 28.7, MCHC 32.5, RDW 12.4, Plt Count 379, MPV 9.2, Gran % 75.3 H, Lymph % (Auto) 14.0 L, [place] % (Auto) 9.2 H, Eos % (Auto) 1.3 L, Baso % (Auto) 0.2, Gran # 10.73 H, Lymph # (Auto) 2.0, [place] # (Auto) 1.3 H, Eos # (Auto) 0.2, Baso # (Auto) 0.03 11/27/17 20:20: Sodium 135, Potassium 3.9, Chloride 98, Carbon Dioxide 26, Anion Gap 15, BUN 11, Creatinine 0.4 L, Est GFR ( Amer) > 60, Est GFR (Non-Af Amer) > 60, Random Glucose 149 H, Calcium 9.3, Total Bilirubin 0.5, AST 72 H D, ALT 62 H, Alkaline Phosphatase 376 H, Total Protein 8.2, Albumin 4.0, Globulin 4.2, Albumin/Globulin Ratio 1.0 L, Lipase 127 - RAD Interpretation Radiology Orders: 11/27/17 19:36 ABDOMEN COMPLETE [US] Stat 11/27/17 20:41 CHEST PORTABLE [RAD] Stat - Medication Orders Current Medication Orders: Heparin Sodium (Porcine) (Heparin) 5,000 units SC Q8 IVONNE; Protocol Last Admin: 11/29/17 06:13 Dose: 5,000 units Subcutaneous Administrations Document 11/29/17 06:13 MB (Rec: 11/29/17 06:[address] [id number] Injection Site MAR Injection Site Right Arm Charges for Administration # of Subcutaneous Administrations 1 Doxycycline Hyclate 100 mg/ (Sodium Chloride) 100 mls @ 100 mls/hr IVPB Q12 IVONNE; Protocol Last Admin: 11/28/17 21:00 Dose: 100 mls/hr eMAR Start Stop Document 11/28/17 21:00 MB (Rec: 11/28/17 21:[address] [id number] Intravenous Solution Start Date 11/28/17 Start Time 21:00 Sodium Chloride (Sodium Chloride 0.9%) 1,000 mls @ 75 mls/hr IV .[id number] IVONNE Last Admin: 11/29/17 06:14 Dose: 75 mls/hr eMAR Start Stop Document 11/29/17 06:14 MB (Rec: 11/29/17 06:[address] [id number] Intravenous Solution Start Date 11/29/17 Start Time 06:14 Piperacillin Sod/Tazobactam Sod (Zosyn 3.375 In Ns 100ml) 100 mls @ 25 mls/hr IVPB Q8 IVONNE; Protocol Stop: 11/29/17 09:59 Last Admin: 11/29/17 06:13 Dose: 25 mls/hr eMAR Start Stop Document 11/29/17 06:13 MB (Rec: 11/29/17 06:[address] [id number]) Intravenous Solution Start Date 11/29/17 Start Time 06:13 Vancomycin HCl (Vancomycin 1gm) 1 gm in 250 mls @ 167 mls/hr IVPB Q12H IVONNE; Pr otocol Stop: 12/07/17 19:31 Last Admin: 11/29/17 06:32 Dose: 167 mls/hr eMAR Start Stop Document 11/29/17 06:32 MB (Rec: 11/29/17 06:32 MB [id number]) Intravenous Solution Start Date 11/29/17 Start Time 06:32 Ibuprofen (Motrin Tab) 400 mg PO Q6H PRN PRN Reason: Fever >100.4 F Last Admin: 11/28/17 14:35 Dose: 400 mg [facility] Pain/Vitals Document 11/28/17 14:35 CV (Rec: 11/28/17 14:[address] [id number] Presence of Pain Presence of Pain No Vitals Temperature (97.6 F-99.6 F) 100.2 F Temperature Source Oral Ondansetron HCl (Zofran Inj) 4 mg IVP Q6H PRN PRN Reason: Nausea/Vomiting Oxycodone HCl (Oxycodone Immediate Release Tab) 5 mg PO Q4H PRN PRN Reason: Pain, severe (8-10) Last Admin: 11/29/17 04:09 Dose: 5 mg [facility] Pain Assessment Document 11/29/17 04:09 SALES COMMISSIONS ANALYST (Rec: 11/29/17 04:[address] [id number] Pain Reassessment Is this a pain reassessment? No Sleep Is patient sleeping during reassessment? No Presence of Pain Presence of Pain Yes Location Pain Location Body Site Abdomen Description Pain Behavior Moaning Guarding Facial Grimacing Alleviating Factors/Management Medication Techniques Alleviating Factors Medication Re-Assess: RODRIGUE Pain Assessment Document 11/29/17 05:09 MB (Rec: 11/29/17 06:[address] [id number] Pain Reassessment Is this a pain reassessment? Yes Sleep Is patient sleeping during reassessment? Yes Pantoprazole Sodium (Protonix Ec Tab) 40 mg PO 0600 IVONNE Last Admin: 11/29/17 06:13 Dose: 40 mg Polyethylene Glycol (Miralax) 17 gm PO DAILY IVONNE Last Admin: 11/28/17 10:13 Dose: 17 gm Sennosides (Senokot Tab) 8.6 mg PO DAILY IVONNE Last Admin: 11/28/17 10:12 Dose: 8.6 mg Simethicone (Mylicon Chew Tab) 80 mg PO HS PRN PRN Reason: GI distress Last Admin: 11/28/17 21:12 Dose: 80 mg Discontinued Medications Diphenhydramine HCl (Benadryl) 25 mg PO STAT STA Stop: 11/29/17 02:22 Last Admin: 11/29/17 02:24 Dose: 25 mg Sodium Chloride (Sodium Chloride 0.9%) 1,000 mls @ 999 mls/hr IV .Q1H1M STA Stop: 11/27/17 20:35 Last Admin: 11/27/17 20:23 Dose: 999 mls/hr eMAR Start Stop Document 11/27/17 20:23 HI (Rec: 11/27/17 20:23 [facility]'[id number]) Intravenous Solution Start Date 11/27/17 Start Time 20:23 Vancomycin HCl (Vancomycin 1gm) 1 gm in 250 mls @ 167 mls/hr IVPB STAT STA; Protocol Stop: 11/27/17 22:44 Last Admin: 11/27/17 23:24 Dose: 167 mls/hr eMAR Start Stop Document 11/27/17 23:24 HI (Rec: 11/27/17 23:24 [facility]'[id number]) Intravenous Solution Start Date 11/27/17 Start Time 23:24 Piperacillin Sod/Tazobactam Sod (Zosyn 3.375 In Ns 100ml) 100 mls @ 200 mls/hr IVPB STAT STA; Protocol Stop: 11/27/17 21:44 Last Admin: 11/27/17 21:58 Dose: 200 mls/hr eMAR Start Stop Document 11/27/17 21:58 HI (Rec: 11/27/17 21:58 [facility]'[id number]) Intravenous Solution Start Date 11/27/17 Start Time 21:58 Piperacillin Sod/Tazobactam Sod (Zosyn 3.375 In Ns 100ml) 100 mls @ 25 mls/hr IVPB Q12 IVONNE; Protocol Stop: 11/28/17 13:59 Last Admin: 11/28/17 09:22 Dose: 25 mls/hr eMAR Start Stop Document 11/28/17 09:22 CV (Rec: 11/28/17 09:[address] [id number] Intravenous Solution Start Date 11/28/17 Start Time 09:22 Ketorolac Tromethamine (Toradol) 30 mg IVP STAT STA Stop: 11/27/17 19:49 Last Admin: 11/27/17 20:23 Dose: 30 mg [facility] Pain Assessment Document 11/27/17 20:23 HI (Rec: 11/27/17 20:23 [place] [id number]) Pain Reassessment Is this a pain reassessment? No Sleep Is patient sleeping during reassessment? No Presence of Pain Presence of Pain Yes IVP Administration Document 11/27/17 20:23 HI (Rec: 11/27/17 20:23 [place] [id number]) Charges for Administration # of IVP Administrations 1 Re-Assess: [facility] Pain Assessment Document 11/27/17 21:23 HI (Rec: 11/27/17 21:57 [place] [id number]) Pain Reassessment Is this a pain reassessment? Yes Sleep Is patient sleeping during reassessment? No Presence of Pain Presence of Pain No Morphine Sulfate (Morphine) 2 mg IVP STAT STA Stop: 11/27/17 19:50 Last Admin: 11/27/17 20:22 Dose: 2 mg MAR Pain Assessment Document 11/27/17 20:22 HI (Rec: 11/27/17 20:23 [place] [id number]) Pain Reassessment Is this a pain reassessment? No Sleep Is patient sleeping during reassessment? No Presence of Pain Presence of Pain Yes IVP Administration Document 11/27/17 20:22 HI (Rec: 11/27/17 20:23 [place] [id number]) Charges for Administration # of IVP Administrations 1 Re-Assess: [facility] Pain Assessment Document 11/27/17 21:22 HI (Rec: 11/27/17 21:57 [place] [id number]) Pain Reassessment Is this a pain reassessment? Yes Sleep Is patient sleeping during reassessment? No Presence of Pain Presence of Pain No Morphine Sulfate (Morphine) 2 mg IVP Q4H PRN PRN Reason: Pain, severe (8-10) Oxycodone/Acetaminophen (Percocet 5/325 Mg Tab) 1 tab PO Q4H PRN PRN Reason: Pain, moderate (4-7) Stop: 12/01/17 00:54 Last Admin: 11/28/17 06:07 Dose: 1 tab RODRIGUE Pain Assessment Document 11/28/17 06:07 MB (Rec: 11/28/17 06:[address] [id number] Pain Reassessment Is this a pain reassessment? No Presence of Pain Presence of Pain Yes Pain Scale Used Protocol: PSCALES Pain Scale Used Numeric Location Pain Location Body Traffic Operations Engineer Description Description Constant Intensity of Pain at present 6 <Florencia Sy - Last Filed: 11/29/17 07:00> - PA / HOUSEKEEPING AND LAUNDRY TEAM LEADER / Resident Statement / has reviewed & agrees with the documentation as recorded. JONAH has examined the patient and agrees with the treatment plan. <Florencia Sy - Last Filed: 11/29/17 07:00> Disposition/Present on Arrival - Present on Arrival Any Indicators Present on Arrival: No History of DVT/PE: No History of Uncontrolled Diabetes: No Urinary Catheter: No History of Decub. Ulcer: No History Surgical Site Infection Following: None - Disposition Have Diagnosis and Disposition been Completed?: Yes Disposition Time: 20:45 Patient Plan: Admission <Minnie Lopez - Last Filed: 11/28/17 02:10> <Florencia Sy - Last Filed: 11/29/17 07:00> - Disposition Diagnosis: HCAP (healthcare-associated pneumonia), Fever, Abdominal pain Disposition: HOSPITALIZED Patient Problems: Current Active Problems Problem Status Onset Abdominal pain Acute Fever Acute HCAP (healthcare-associated pneumonia) Acute Condition: FAIR
[2017-11-27] MEDS ORDERED: Vancomycin 1gm in NS 250ml 1 GM/250 ML BAG IVPB STA (21:15)
[2017-11-27] MEDS ORDERED: Piperacillin/Tazobact 3.375 gm 100 ML IVPB STA (21:15)
--- NOTE | 2017-11-28 00:22 | CP.PCM.HP ---
Addendum entered and electronically signed by Zion Johnson DO 11/28/17 07:39: In HPI section, clarification to diagnosis of liver cancer should be noted. 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 This does not rule out the possibility of two primary malignancies. Original Note: <Zion Johnson - Last Filed: 11/28/17 02:30> History of Present Illness - History of Present Illness History of Present Illness: Zion Johnson, PGY-1 History and Physical for Hospitalist Service CC: Upper abdominal pain HPI: 56 y/o female, with PMHx of GERD, gastritis and recent diagnosis of liver cancer on recent admission presents with 2 days of RUQ and epigastric abdominal pain that patient describes as sharp, constant, radiates to the flank, now 8/10, worsens by food and no alleviating factors. Patient denies having taken antibiotic recommended upon discharge and denies followup with oncologist as recommended upon discharge. Patient was diagnosed with gastritis with positive urea breath test a month ago. Patient received triple therapy for H pylori infection that has recently completed a few weeks ago. Patient did not receive medical therapy for the pain. Patient admits to nausea but no diarrhea. Patient has experienced poor appetite since discharge. She denies black/dark stool, hematochezia, melena, hemoptysis, hematemesis, change in stool caliber, bowel movement changes, use of NSAID, weight loss. Patient with recent admission discharged on Levaquin. Patient states current pain is very similar to pain felt upon discharge that has reoccurred. Patient denies fever, chills, shortness of breath, chest pain, diarrhea, vo miting, urinary symptoms, back pain, neck pain, headache, or any other complaints. 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 Past Patient History - Infectious Disease Hx of Infectious Diseases: None - Tetanus Immunizations Tetanus Immunization: Unknown - Past Medical History & Family History Past Medical History?: Yes - Past Social History Smoking Status: Never Smoked - CARDIAC Hx Cardiac Disorders: No - PULMONARY Hx Respiratory Disorders: No - NEUROLOGICAL Hx Neurological Disorder: No - HEENT Hx HEENT Problems: No - RENAL Hx Chronic Kidney Disease: No - ENDOCRINE/METABOLIC Hx Endocrine Disorders: No - HEMATOLOGICAL/ONCOLOGICAL Hx Blood Transfusions: No Hx Blood Transfusion Reaction: No - INTEGUMENTARY Hx Dermatological Problems: No - MUSCULOSKELETAL/RHEUMATOLOGICAL Hx Musculoskeletal Disorders: No - GASTROINTESTINAL Hx Gastrointestinal Disorders: Yes Hx Gastritis: Yes Other/Comment: Gallstones - GENITOURINARY/GYNECOLOGICAL Hx Genitourinary Disorders: No - PSYCHIATRIC Hx Psychophysiologic Disorder: No Hx Substance Use: No - SURGICAL HISTORY Other/Comment: liver biopsy - ANESTHESIA Hx Anesthesia Reactions: No Hx Malignant Hyperthermia: No Meds Allergies/Adverse Reactions: Allergies Allergy/AdvReac Type Severity Reaction Status Date / Time No Known Allergies Allergy Verified 11/14/17 11:18 Physical Exam - Constitutional Appears: Well, Non-toxic, No Acute Distress - Head Exam Head Exam: ATRAUMATIC, NORMOCEPHALIC - Eye Exam Eye Exam: EOMI, Normal appearance Pupil Exam: PERRL - ENT Exam ENT Exam: Mucous Membranes Moist, Normal Exam - Neck Exam Neck exam: Positive for: Full Rom - Respiratory Exam Respiratory Exam: Clear to Auscultation Bilateral, NORMAL BREATHING PATTERN. absent: Chest Wall Tenderness, Rales, Rhonchi, Wheezes - Cardiovascular Exam Cardiovascular Exam: RRR, +S1, +S2 - GI/Abdominal Exam GI & Abdominal Exam: Normal Bowel Sounds, Soft, Tenderness (RUQ, Epigastric) - Extremities Exam Extremities exam: Positive for: full ROM, normal inspection. Negative for: calf tenderness, normal capillary refill - Back Exam Back exam: NORMAL INSPECTION. absent: CVA tenderness (L), CVA tenderness (R), paraspinal tenderness, vertebral tenderness - Neurological Exam Neurological exam: Alert, CN II-XII Intact, Oriented x3 - Psychiatric Exam Psychiatric exam: Normal Affect, Normal Mood - Skin Skin Exam: Dry, Intact, Normal Color, Warm Results - Vital Signs Recent Vital Signs: Last Vital Signs Temp 100.8 F H 11/27/17 20:00 Pulse 83 11/27/17 23:14 Resp 18 11/27/17 23:14 BP 133/74 11/27/17 23:14 Pulse Ox 95 11/27/17 23:14 - Labs Result Diagrams: 11/27/17 20:20 11/27/17 20:20 Labs: Laboratory Results - last 24 hr 11/27/17 11/27/17 11/27/17 20:20 20:20 20:27 WBC 14.3 H D RBC 4.14 Hgb 11.9 L Hct 36.6 MCV 88.4 MCH 28.7 MCHC 32.5 RDW 12.4 Plt Count 379 MPV 9.2 Gran % 75.3 H Lymph % (Auto) 14.0 L Lyon % (Auto) 9.2 H Eos % (Auto) 1.3 L Baso % (Auto) 0.2 Gran # 10.73 H Lymph # (Auto) 2.0 Lyon # (Auto) 1.3 H Eos # (Auto) 0.2 Baso # (Auto) 0.03 pO2 87 H VBG pH 7.48 H VBG pCO2 36.0 L VBG HCO3 26.8 VBG Total CO2 27.9 VBG O2 Sat (Calc) 98.2 H VBG Base Excess 3.4 H VBG Potassium 3.9 Glucose 145 H Lactate 1.6 FiO2 21.0 Sodium 135 134.0 Potassium 3.9 Chloride 98 102.0 Carbon Dioxide 26 Anion Gap 15 BUN 11 Creatinine 0.4 L Est GFR ( Amer) > 60 Est GFR (Non-Af Amer) > 60 Random Glucose 149 H Calcium 9.3 Total Bilirubin 0.5 AST 72 H D ALT 62 H Alkaline Phosphatase 376 H Total Protein 8.2 Albumin 4.0 Globulin 4.2 Albumin/Globulin Ratio 1.0 L Lipase 127 Venous Blood Potassium 3.9 Assessment & Plan - Assessment and Plan (Free Text) Assessment: Assessment: 56 F w/ PMHx GERD and H. Pylori Gastritis and recently diagnosed liver CA presents with recurrence of RUQ abdominal pain. Abd U/S performed today showed R hepatic lobe mass along with gallbladder wall thickening, sludge, R hydronephrosis. SOB w/ crackles - HCAP vs PE CXR + right lower infiltrate vs pleural effusion; unchanged from previous cxr. F/U final read in AM Patient was febrile with leukocytosis 14.3 C/w Zosyn and Doxycycline 100 mg fo atypical coverage F/u PNA workup with procal and Mycoplasma, Legionaella, Strep and Flu F/u Ibrahim culture ID Consulted - Dr. Leonard - appreciate recommendations New R sided Hydronephrosis on Abdominal U/S as compared to previous imaging CT abd/pel without contrast - f/u in AM Strict Is and Os Monitor for potential urinary retention Hepatic Mass CT A/P 11/14: large irregular poorly defined hypodense mass in the right lobe of the liver adjacent to the GB. Measures 47 x 52 x 73mm in in size. No features of hemangioma. 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 There are also densities in the GB consistent with stones. Abd U/S 11/27: nodular hepatic contour; correlate clinically for cirrhosis. Heterogenous hepatic parenchyma. Indeterminate 5 x 6.5 x 5.9cm R hepatic lobe mass; malignant neoplasm must be excluded. R sided hydronephrosis 2.8 x 2.6 x 3cm R lower pole cyst. GB sludge. GB wall thickening/pericholecystic edema measuring 4mm. General Surgery consulted - Dr. Whipple- recommendations appreciated regarding ? percutaneous ashley. drain Patient denies visiting her Heme/Onc Dr. Paris since recent discharge- recommendations appreciated. F/u in AM Transaminitis AST/ALT 72/62 likely 2/2 liver mass Unlikely cholestatic picture in setting of Tbili 0.5 GI consult, Dr Mcclain - recommendations appreciated for transaminitis Constipation + Abd discomfort Miralax, and Senokot on board Repeat abd u/s shows hydronephrosis Consider advancing diet GI ppx: protonix 40mg po qd DVT ppx: SCDs Diet: NPO Patient seen, case reviewed, and plan approved by Dr. Davis. Zion Johnson, PGY-1 <Paula Davis - Last Filed: 11/28/17 06:29> Results - Vital Signs Recent Vital Signs: Last Vital Signs Temp 100.8 F H 11/27/17 20:00 Pulse 76 11/28/17 00:48 Resp 18 11/28/17 00:48 BP 126/74 11/28/17 00:48 Pulse Ox 95 11/28/17 00:48 - Labs Result Diagrams: 11/27/17 20:20 11/27/17 20:20 Labs: Laboratory Results - last 24 hr 11/27/17 11/27/17 11/27/17 20:20 20:20 20:27 WBC 14.3 H D RBC 4.14 Hgb 11.9 L Hct 36.6 MCV 88.4 MCH 28.7 MCHC 32.5 RDW 12.4 Plt Count 379 MPV 9.2 Gran % 75.3 H Lymph % (Auto) 14.0 L Lyon % (Auto) 9.2 H Eos % (Auto) 1.3 L Baso % (Auto) 0.2 Gran # 10.73 H Lymph # (Auto) 2.0 Lyon # (Auto) 1.3 H Eos # (Auto) 0.2 Baso # (Auto) 0.03 pO2 87 H VBG pH 7.48 H VBG pCO2 36.0 L VBG HCO3 26.8 VBG Total CO2 27.9 VBG O2 Sat (Calc) 98.2 H VBG Base Excess 3.4 H VBG Potassium 3.9 Glucose 145 H Lactate 1.6 FiO2 21.0 Sodium 135 134.0 Potassium 3.9 Chloride 98 102.0 Carbon Dioxide 26 Anion Gap 15 BUN 11 Creatinine 0.4 L Est GFR ( Amer) > 60 Est GFR (Non-Af Amer) > 60 Random Glucose 149 H Calcium 9.3 Total Bilirubin 0.5 AST 72 H D ALT 62 H Alkaline Phosphatase 376 H Total Protein 8.2 Albumin 4.0 Globulin 4.2 Albumin/Globulin Ratio 1.0 L Lipase 127 Venous Blood Potassium 3.9 Urine Color Urine Appearance Urine pH Ur Specific Lena Urine Protein Urine Glucose (UA) Urine Ketones Urine Blood Urine Nitrate Urine Bilirubin Urine Urobilinogen Ur Leukocyte Esterase Urine RBC Urine WBC Ur Epithelial Cells Urine Bacteria 11/28/17 03:00 WBC RBC Hgb Hct MCV MCH MCHC RDW Plt Count MPV Gran % Lymph % (Auto) Lyon % (Auto) Eos % (Auto) Baso % (Auto) Gran # Lymph # (Auto) Lyon # (Auto) Eos # (Auto) Baso # (Auto) pO2 VBG pH VBG pCO2 VBG HCO3 VBG Total CO2 VBG O2 Sat (Calc) VBG Base Excess VBG Potassium Glucose Lactate FiO2 Sodium Potassium Chloride Carbon Dioxide Anion Gap BUN Creatinine Est GFR ( Amer) Est GFR (Non-Af Amer) Random Glucose Calcium Total Bilirubin AST ALT Alkaline Phosphatase Total Protein Albumin Globulin Albumin/Globulin Ratio Lipase Venous Blood Potassium Urine Color Yellow Urine Appearance Sl cloudy Urine pH 6.0 Ur Specific Lena >= 1.030 Urine Protein 100 H Urine Glucose (UA) Negative Urine Ketones Negative Urine Blood Trace-intact H Urine Nitrate Negative Urine Bilirubin Negative Urine Urobilinogen 1.0 H Ur Leukocyte Esterase Negative Urine RBC 0 - 2 Urine WBC 0 - 2 Ur Epithelial Cells 3 - 4 Urine Bacteria Few Attending/Attestation - Attestation I have personally seen and examined this patient.: Yes I have fully participated in the care of the patient.: Yes I have reviewed all pertinent clinical information: Yes
[2017-11-28] MEDS ORDERED: Morphine 2 mg/ml ISec IVP PRN (00:52)
[2017-11-28] MEDS ORDERED: Oxycodone/Acetaminophen 5/325 mg Tab PO PRN (00:53)
[2017-11-28] MEDS: Sodium Chloride 0.9% 1,000 ML IV SCH ×2 (01:09→06:03)
[2017-11-28 03:34] LABS: URINE BILIRUBIN NEGATIVE (NEGATIVE); URINE BLOOD TRACE-INTACT (NEGATIVE); URINE GLUCOSE (UA) NEGATIVE (NEGATIVE); URINE LEUKOCYTE ESTERASE NEGATIVE Leu/uL (NEGATIVE); URINE PROTEIN 100 mg/dL (<30 mg/dL)
[2017-11-28 03:47] LABS: URINE APPEARANCE SL CLOUDY (CLEAR); URINE COLOR YELLOW (YELLOW)
[2017-11-28 04:13] LABS: URINE BACTERIA FEW (NEG); URINE RBC 0 - 2 /hpf (0-2); URINE WBC 0 - 2 /hpf (0-6)
[2017-11-28] MEDS: Pantoprazole 40 mg EC Tab PO SCH (06:03)
--- NOTE | 2017-11-28 06:06 | CP.PCM.CON ---
History of Present Illness - History of Present Illness History of Present Illness: Surgery: DR. Santiago CC: abdominal pain Reason for consult: possible perc ashley tube HPI: Patient is a 56 y/o female with recent admission and diagnosis of adenocarcinoma most likely pancreatic vs biliary in origin, according to p athology report, from CT guided liver biopsy with underlying porcelain gallbladder presents complaining of RUQ abdominal pain persistent since discharge but worsened this evening. She did not take anything to help with the pain. She denies n/v/f/c after discharge. She reports having normal bowel mov ements and tolerating diet. She is aware of diagnosis and had f/u with only the oncologist Dr. Paris since d/c 5 days ago. She states he would like her to undergo further work up, such as colonoscopy and EGD to r/o GI primary as well. She denies seeing a PMD or f/u with the surgical oncologist, Dr. Bellamy, who saw her during her last admission. Patient was seen and evaluated in ER, underwent abdominal u/s with similar findings to that on last admission however patient was found to have low grade fever of 100.8 x1 episode. PMH: GERD, adenoca most likely biliary/panc origin w/ extension into liver PSH: c section hysterectomy Review of Systems - Review of Systems All systems: reviewed and no additional remarkable complaints except Review of Systems: unless stated in HPI Past Patient History - Infectious Disease Hx of Infectious Diseases: None - Tetanus Immunizations Tetanus Immunization: Unknown - Past Medical History & Family History Past Medical History?: Yes - Past Social History Smoking Status: Never Smoked - CARDIAC Hx Cardiac Disorders: No - PULMONARY Hx Respiratory Disorders: No - NEUROLOGICAL Hx Neurological Disorder: No - HEENT Hx HEENT Problems: No - RENAL Hx Chronic Kidney Disease: No - ENDOCRINE/METABOLIC Hx Endocrine Disorders: No - HEMATOLOGICAL/ONCOLOGICAL Hx Blood Transfusions: No Hx Blood Transfusion Reaction: No - INTEGUMENTARY Hx Dermatological Problems: No - MUSCULOSKELETAL/RHEUMATOLOGICAL Hx Musculoskeletal Disorders: No - GASTROINTESTINAL Hx Gastrointestinal Disorders: Yes Hx Gastritis: Yes Other/Comment: Gallstones - GENITOURINARY/GYNECOLOGICAL Hx Genitourinary Disorders: No - PSYCHIATRIC Hx Psychophysiologic Disorder: No Hx Substance Use: No - SURGICAL HISTORY Other/Comment: liver biopsy - ANESTHESIA Hx Anesthesia Reactions: No Hx Malignant Hyperthermia: No Meds Allergies/Adverse Reactions: Allergies Allergy/AdvReac Type Severity Reaction Status Date / Time No Known Allergies Allergy Verified 11/14/17 11:18 - Medications Medications: Current Medications Heparin Sodium (Porcine) (Heparin) 5,000 units SC Q8 [facility]; Protocol Last Admin: 11/28/17 06:02 Dose: Not Given Doxycycline Hyclate 100 mg/ (Sodium Chloride) 100 mls @ 100 mls/hr IVPB Q12 [facility]; Protocol Sodium Chloride (Sodium Chloride 0.9%) 1,000 mls @ 75 mls/hr IV .[id number] [facility] Last Admin: 11/28/17 06:03 Dose: 75 mls/hr Piperacillin Sod/Tazobactam Sod (Zosyn 3.375 In Ns 100ml) 100 mls @ 25 mls/hr IVPB Q12 [facility]; Protocol Stop: 11/28/17 13:59 Morphine Sulfate (Morphine) 2 mg IVP Q4H PRN PRN Reason: Pain, severe (8-10) Ondansetron HCl (Zofran Inj) 4 mg IVP Q6H PRN PRN Reason: Nausea/Vomiting Oxycodone/Acetaminophen (Percocet 5/325 Mg Tab) 1 tab PO Q4H PRN PRN Reason: Pain, moderate (4-7) Stop: 12/01/17 00:54 Pantoprazole Sodium (Protonix Ec Tab) 40 mg PO 0600 [facility] Last Admin: 11/28/17 06:03 Dose: 40 mg Polyethylene Glycol (Miralax) 17 gm PO DAILY [facility] Sennosides (Senokot Tab) 8.6 mg PO DAILY [facility] Physical Exam - Constitutional Appears: Non-toxic, No Acute Distress - Head Exam Head Exam: ATRAUMATIC, NORMOCEPHALIC - Eye Exam Eye Exam: EOMI, Normal appearance - ENT Exam ENT Exam: Mucous Membranes Moist - Respiratory Exam Respiratory Exam: NORMAL BREATHING PATTERN. absent: Respiratory Distress - Cardiovascular Exam Cardiovascular Exam: REGULAR RHYTHM. absent: Tachycardia - GI/Abdominal Exam GI & Abdominal Exam: Soft, Tenderness (RUQ). absent: Distended, Guarding, Rebound, Rigid - Extremities Exam Extremities exam: Positive for: normal inspection. Negative for: calf tenderness - Neurological Exam Neurological exam: Alert, Oriented x3 - Psychiatric Exam Psychiatric exam: Normal Affect, Normal Mood Results - Vital Signs Recent Vital Signs: Last Vital Signs Temp 100.8 F H 11/27/17 20:00 Pulse 76 11/28/17 00:48 Resp 18 11/28/17 00:48 BP 126/74 11/28/17 00:48 Pulse Ox 95 11/28/17 00:48 - Labs Result Diagrams: 11/27/17 20:20 11/27/17 20:20 Labs: Laboratory Results - last 24 hr 11/27/17 11/27/17 11/27/17 20:20 20:20 20:27 WBC 14.3 H D RBC 4.14 Hgb 11.9 L Hct 36.6 MCV 88.4 MCH 28.7 MCHC 32.5 RDW 12.4 Plt Count 379 MPV 9.2 Gran % 75.3 H Lymph % (Auto) 14.0 L Price % (Auto) 9.2 H Eos % (Auto) 1.3 L Baso % (Auto) 0.2 Gran # 10.73 H Lymph # (Auto) 2.0 Price # (Auto) 1.3 H Eos # (Auto) 0.2 Baso # (Auto) 0.03 pO2 87 H VBG pH 7.48 H VBG pCO2 36.0 L VBG HCO3 26.8 VBG Total CO2 27.9 VBG O2 Sat (Calc) 98.2 H VBG Base Excess 3.4 H VBG Potassium 3.9 Glucose 145 H Lactate 1.6 FiO2 21.0 Sodium 135 134.0 Potassium 3.9 Chloride 98 102.0 Carbon Dioxide 26 Anion Gap 15 BUN 11 Creatinine 0.4 L Est GFR ( Amer) > 60 Est GFR (Non-Af Amer) > 60 Random Glucose 149 H Calcium 9.3 Total Bilirubin 0.5 AST 72 H D ALT 62 H Alkaline Phosphatase 376 H Total Protein 8.2 Albumin 4.0 Globulin 4.2 Albumin/Globulin Ratio 1.0 L Lipase 127 Venous Blood Potassium 3.9 Urine Color Urine Appearance Urine pH Ur Specific [place] Urine Protein Urine Glucose (UA) Urine Ketones Urine Blood Urine Nitrate Urine Bilirubin Urine Urobilinogen Ur Leukocyte Esterase Urine RBC Urine WBC Ur Epithelial Cells Urine Bacteria 11/28/17 03:00 WBC RBC Hgb Hct MCV MCH MCHC RDW Plt Count MPV Gran % Lymph % (Auto) Price % (Auto) Eos % (Auto) Baso % (Auto) Gran # Lymph # (Auto) Price # (Auto) Eos # (Auto) Baso # (Auto) pO2 VBG pH VBG pCO2 VBG HCO3 VBG Total CO2 VBG O2 Sat (Calc) VBG Base Excess VBG Potassium Glucose Lactate FiO2 Sodium Potassium Chloride Carbon Dioxide Anion Gap BUN Creatinine Est GFR ( Amer) Est GFR (Non-Af Amer) Random Glucose Calcium Total Bilirubin AST ALT Alkaline Phosphatase Total Protein Albumin Globulin Albumin/Globulin Ratio Lipase Venous Blood Potassium Urine Color Yellow Urine Appearance Sl cloudy Urine pH 6.0 Ur Specific [place] >= 1.030 Urine Protein 100 H Urine Glucose (UA) Negative Urine Ketones Negative Urine Blood Trace-intact H Urine Nitrate Negative Urine Bilirubin Negative Urine Urobilinogen 1.0 H Ur Leukocyte Esterase Negative Urine RBC 0 - 2 Urine WBC 0 - 2 Ur Epithelial Cells 3 - 4 Urine Bacteria Few - Impressions Impression: RUQ u/s: chronic cholecystitis, peripancreatic lymph node, large heterogenous hepatic mass Assessment & Plan - Assessment and Plan (Free Text) Assessment: 56 y/o female with adenocarcinoma found on liver biopsy, pancreatic/biliary in origin on path report, with subsequent RUQ pain Plan: -needs further work up including colonoscopy and EGD -needs staging -needs to f/u with surgical oncologist, Dr. Bellamy -no surgical intervention at this time, pain most likely not amendable to perc chol tube as pain 2/2 extension of tumor into liver -d/w Dr. Sarabjit Pérez PGY4
--- NOTE | 2017-11-28 09:31 | CT ---
Date of service: 11/28/2017 PROCEDURE: CT Abdomen and Pelvis without intravenous contrast HISTORY: New hydronephrosis COMPARISON: None. TECHNIQUE: Without contrast. Contrast dose: Radiation dose: Total exam DLP = 923.13 mGy-cm. This CT exam was performed using one or more of the following dose reduction techniques: Automated exposure control, adjustment of the mA and/or kV according to patient size, and/or use of iterative reconstruction technique. FINDINGS: LOWER THORAX: Bibasilar infiltrates. LIVER: Unremarkable. No gross lesion or ductal dilatation. GALLBLADDER AND BILE DUCTS: There calcification of the wall of the gallbladder as well as multiple gallstones. PANCREAS: Unremarkable. No gross lesion or ductal dilatation. SPLEEN: Unremarkable. ADRENALS: Unremarkable. No mass. KIDNEYS AND URETERS: Unremarkable. No hydronephrosis. No solid mass. VASCULATURE: Unremarkable. No aortic aneurysm. BOWEL: Unremarkable. No obstruction. No gross mural thickening. APPENDIX: Unremarkable. Normal appendix. PERITONEUM: Unremarkable. No free fluid. No free air. LYMPH NODES: Unremarkable. No enlarged lymph nodes. BLADDER: Unremarkable. REPRODUCTIVE: Unremarkable. BONES: No acute fracture. OTHER FINDINGS: None. IMPRESSION: Calcification of the wall of the gallbladder as well as multiple gallstones. No evidence of hydronephrosis. No acute intra-abdominal findings
[2017-11-28] MEDS ORDERED: Piperacillin/Tazobact 3.375 gm 100 ML IVPB SCH (10:00)
--- NOTE | 2017-11-28 10:05 | RAD ---
Date of service: 11/27/2017 HISTORY: fever/ hx of PNA COMPARISON: 11/19/2017 FINDINGS: LUNGS: There is linear scarring or atelectasis of both lung bases. This is unchanged PLEURA: No significant pleural effusion identified, no pneumothorax apparent. CARDIOVASCULAR: No atherosclerotic calcification present Normal. OSSEOUS STRUCTURES: No significant abnormalities. VISUALIZED UPPER ABDOMEN: Normal. OTHER FINDINGS: None. IMPRESSION: There is linear scarring or atelectasis of both lung bases. This is unchanged
[2017-11-28] MEDS: POLYETHYLENE GLYCOL 3350 17 GM/Dose PACKET PO SCH (10:13)
--- NOTE | 2017-11-28 10:33 | US ---
HISTORY: ruq abd pain COMPARISON: CT abdomen and pelvis without contrast performed 11/28/17 TECHNIQUE: Sonographic evaluation of the abdomen. FINDINGS: LIVER: Measures 18.8 cm in sagittal dimension. Echogenic liver may be seen in setting of hepatic parenchymal disease or fatty infiltration. Heterogeneous region measuring approximately 11.4 x 910.0 x 7.6 cm. The main portal vein appears patent with normal directional flow. No intrahepatic bile duct dilatation. GALLBLADDER: Gallstones. No gallbladder wall thickening. Negative sonographic Lockett's sign as assessed by the director of enterprise strategy. COMMON BILE DUCT: Measures 1 cm. PANCREAS: Not well visualized. RIGHT KIDNEY: Measures 10.2 x 4.9 x 6.5 cm. 2.3 x 2.0 x 1.5 cm cyst. No obstructing calculus or hydronephrosis identified. LEFT KIDNEY: Measures 10.8 x 6.5 x 5.9 cm. No obstructing calculus. Fullness of the left renal collecting system. SPLEEN: Measures approximately 15.4 cm. AORTA: Not well-visualized. IVC: Not well-visualized. OTHER FINDINGS: Peripancreatic lymph node measures approximately 1.2 x 0.9 cm. IMPRESSION: Examination limited by shadowing. Heterogeneous 11.4 x 10.0 x 7.6 cm region of the right hepatic lobe, possibly mass. Recommend correlation with follow-up contrast-enhanced CT. Cholelithiasis. Dilated common bile duct. Negative sonographic Lockett's sign as assessed by the director of enterprise strategy. Gallbladder wall thickness measures 3 mm, top-normal. Correlate clinically. Gallbladder wall calcification seen to better advantage on CT performed 11/28/17 Peripancreatic lymph node measuring approximately 1.2 x 0.9 cm. Fullness of the left renal collecting system. Right renal cyst. Splenomegaly. Preliminary impression was provided by [place]. Study marked for PA review.
--- NOTE | 2017-11-28 12:20 | PN ---
DATE: 11/28/2017 TIME: 12:09 p.m. SUBJECTIVE: Ms. Montes De Oca is an unfortunate 56-year-old female with advanced gallbladder cancer. I performed a biopsy of the liver approximately 2 weeks ago, which was consistent with adenocarcinoma of hepatobiliary origin. A request was made for percutaneous cholecystostomy tube placement by the residents involved in her care. The patient is not a candidate for cholecystostomy tube placement nor will she benefit from the procedure. There is no evidence of significant biliary obstruction. I assume the request was made due to her abdominal pain and white count. She has atelectasis/air bronchograms at both bases. This makes help explain the white count. Most importantly, Ms. Montes De Oca needs to be referred to a hepatobiliary center for evaluation concerning possible surgical resection. Jamshid Conteh MD [email or web address]
--- NOTE | 2017-11-28 15:26 | NM ---
Date of service: 11/28/2017 PROCEDURE: Nuclear Medicine Hepatobiliary Scan HISTORY: Porcelain GB; Heme-Onc requested COMPARISON: None available. TECHNIQUE: 5.2 mCi of technetium 99m Mebrofenin was administered intravenously. Planar images of the abdomen were obtained at 5 min intervals to 60 mins. Delayed images were also obtained. FINDINGS: LIVER: Timely and homogenous uptake. COMMON BILE DUCT: identified at 15 mins. GALLBLADDER: Nonvisualized SMALL BOWEL: Identified at 15 mins. IMPRESSION: Nonvisualization of the gallbladder consistent with acute cholecystitis
[2017-11-28] MEDS: Vancomycin 1gm in NS 250ml 1 GM/250 ML BAG IVPB SCH (20:59)
[2017-11-28] MEDS: Piperacillin/Tazobact 3.375 gm 100 ML IVPB SCH (21:00)
[2017-11-28] MEDS ORDERED: Simethicone 80 mg Chewtab PO PRN (21:06)
[2017-11-29] MEDS: oxyCODONE 5 mg Immediate Release Tab PO PRN ×2 (04:09→14:20)
[2017-11-29] MEDS: Pantoprazole 40 mg EC Tab PO SCH (06:13)
[2017-11-29] MEDS: Piperacillin/Tazobact 3.375 gm 100 ML IVPB SCH ×2 (06:13→21:40)
[2017-11-29] MEDS: Sodium Chloride 0.9% 1,000 ML IV SCH ×2 (06:14→16:27)
[2017-11-29] MEDS: Vancomycin 1gm in NS 250ml 1 GM/250 ML BAG IVPB SCH ×3 (06:32→19:23)
[2017-11-29 07:52] LABS: ALB/GLOB RATIO 0.9 (1.1-1.8); ALBUMIN 3.4 g/dL (3.0-4.8); ALT/SGPT 47 U/L (7-56); AST/SGOT 53 U/L (14-36); BLOOD UREA NITROGEN 13 mg/dL (7-21); GFR NON-AFRICAN AMERICAN > 60
[2017-11-29 07:59] LABS: BASO # 0.03 K/mm3 (0.0-2.0); BASO % 0.2 % (0.0-3.0); EOS # 0.2 (0.0-0.7); EOS % 1.5 % (1.5-5.0); GRAN # 9.4 (1.4-6.5); GRAN % 72.9 % (50.0-68.0); HEMOGLOBIN 10.9 g/dL (12.0-16.0); LYMPH # 1.8 (1.2-3.4); LYMPH % 13.9 % (22.0-35.0); MEAN CELL VOLUME 89.3 fl (80.0-105.0); MEAN CORPUSCULAR HEMOGLOBIN 28.5 pg (25.0-35.0); MONO # 1.5 (0.1-0.6); MONO % 11.5 % (1.0-6.0); RBC 3.82 10^6/uL (3.5-6.1); RED CELL DISTRIBUTION WIDTH 12.5 % (11.5-14.5); WHITE BLOOD COUNT 12.9 10^3/ul (4.5-11.0)
[2017-11-29] MEDS: POLYETHYLENE GLYCOL 3350 17 GM/Dose PACKET PO SCH (09:49)
--- NOTE | 2017-11-29 13:59 | CON ---
DATE: 11/28/2017 The patient is seen this morning in room 576. CHIEF COMPLAINT: Weakness. The patient is seen in the emergency room by Minnie Lopez, complaining of abdominal pain, nausea and vomiting, a 56-year-old with nausea and vomiting, abdominal pain. She states this morning that she is much better. No chest pain, shortness of breath or cough. She does have fevers. No headaches or blurred vision. No dysuria or frequency. PAST MEDICAL HISTORY: Significant for gastritis. 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 Review of the pathology report is not available at this time. 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 PAST SURGICAL HISTORY: Significant for liver biopsy, , and hysterectomy. ALLERGIES: THE PATIENT HAS NO KNOWN ALLERGIES. MEDICATIONS: Medications at home are reviewed. PHYSICAL EXAMINATION: VITAL SIGNS: The patient's temperature is 100.8, heart rate of 120, respiratory rate of 20 and blood pressure is 130/80. HEENT: Unremarkable. NECK: Supple. LUNGS: Have decreased breath sounds. HEART: Normal. ABDOMEN: Soft, nontender. LABORATORY EXAMINATION: Reveals a white count of 14,300, hemoglobin 11, platelets of 379. Chemistries reveals a BUN of 11, creatinine of 0.4, AST is 72, ALT is 62 and alk phos is 376. Urine is noted. Urine for Legionella antigen is negative. Serology is reviewed. Microbiology is pending. The patient has had blood cultures on November 19 which were negative. Urine cultures were negative. Nares MRSA screen was negative. The patient also had a HIDA scan which reveals nonvisualization of gallbladder consistent with acute cholecystitis. Dr. Jamshid Conteh's progress note is reviewed. Dr. Whipple's consultation is reviewed. Dr. Jamshid Conteh's note states that the patient has advanced gallbladder cancer which was diagnosed on a liver biopsy, adenocarcinoma of a hepatobiliary origin and he has asked to place a percutaneous cholecystotomy tube. He states the patient is not a candidate for cholecystotomy tube placement, however, she would benefit from the procedure. There is no biliary obstruction. He feels that the bronchograms that may be the cause. The patient had a CAT scan of the abdomen and pelvis, which is reviewed by and Dr. Hancock, no evidence of hydro, no evidence of intra-abdominal findings, calcification of [id number] of the gallbladder, multiple stones. The patient had a chest x-ray, atelectasis is unchanged, read by Dr. Hancock; however, on the CAT scan of the abdomen and pelvis, base of the lungs are seen, bibasilar infiltrates are seen. ASSESSMENT AND PLAN: This is a 56-year-old female with sepsis, GI source versus healthcare-associated pneumonia. We will treat the patient with vancomycin and Zosyn. Pending pancultures. Procalcitonin. Overall prognosis is quite poor for this patient. Blood cultures, urine cultures, sputum cultures are pending. We will check on procalcitonin. Review of laboratories reveals the hepatitis profile has been negative in the past. We will also order an HIV test, fourth generation. We will make further recommendations upon availability of initial results. Overall prognosis is quite poor for this patient. Should have Oncology evaluation. Phill Leonard MD
--- NOTE | 2017-11-29 18:38 | CP.PCM.PN ---
<Yonny Marin - Last Filed: 11/29/17 19:04> Subjective - Date & Time of Evaluation Date of Evaluation: 11/29/17 Time of Evaluation: 12:00 - Subjective Subjective: INTERNAL MEDICINE PROGRESS NOTE FOR DR. ULISES Marin PGY-1 Pt seen and examined at bedside this am. No acute events overnight. Conversation assisted with principal hardware architect. Pt informed that we would get in touch with [facility] if they could possibly accept her case for treatment. She is in the process of getting Francy care. She reports continued abdominal pain. All other ROS are negative. Objective - Vital Signs/Intake and Output Vital Signs (last 24 hours): Temp Pulse Resp BP Pulse Ox 102 F H 95 H 20 131/85 98 11/29/17 15:45 11/29/17 14:00 11/29/17 14:00 11/29/17 14:00 11/29/17 08:23 Intake and Output: 11/29/17 11/29/17 06:59 18:59 Intake Total 360 Balance 360 - Medications Medications: Current Medications Heparin Sodium (Porcine) (Heparin) 5,000 units SC Q8 IVONNE; Protocol Last Admin: 11/29/17 13:37 Dose: 5,000 units Doxycycline Hyclate 100 mg/ (Sodium Chloride) 100 mls @ 100 mls/hr IVPB Q12 IVONNE; Protocol Last Admin: 11/29/17 09:49 Dose: 100 mls/hr Sodium Chloride (Sodium Chloride 0.9%) 1,000 mls @ 75 mls/hr IV .[id number] IVONNE Last Admin: 11/29/17 16:27 Dose: 75 mls/hr Vancomycin HCl (Vancomycin 1gm) 1 gm in 250 mls @ 167 mls/hr IVPB Q12H IVONNE; Protocol Stop: 12/07/17 19:31 Last Admin: 11/29/17 17:05 Dose: 167 mls/hr Ibuprofen (Motrin Tab) 400 mg PO Q6H PRN PRN Reason: Fever >100.4 F Last Admin: 11/29/17 15:45 Dose: 400 mg Ondansetron HCl (Zofran Inj) 4 mg IVP Q6H PRN PRN Reason: Nausea/Vomiting Oxycodone HCl (Oxycodone Immediate Release Tab) 5 mg PO Q4H PRN PRN Reason: Pain, severe (8-10) Last Admin: 11/29/17 14:20 Dose: 5 mg Pantoprazole Sodium (Protonix Ec Tab) 40 mg PO 0600 [facility] Last Admin: 11/29/17 06:13 Dose: 40 mg Polyethylene Glycol (Miralax) 17 gm PO DAILY [facility] Last Admin: 11/29/17 09:49 Dose: 17 gm Sennosides (Senokot Tab) 8.6 mg PO DAILY [facility] Last Admin: 11/29/17 09:49 Dose: 8.6 mg Simethicone (Mylicon Chew Tab) 80 mg PO [facility] PRN PRN Reason: GI distress Last Admin: 11/28/17 21:12 Dose: 80 mg - Labs Labs: 11/29/17 07:00 11/29/17 07:00 - Constitutional Appears: Non-toxic, Toxic, No Acute Distress - Head Exam Head Exam: NORMAL INSPECTION, NORMOCEPHALIC - Eye Exam Eye Exam: EOMI, Normal appearance - ENT Exam ENT Exam: Mucous Membranes Moist, Normal Exam - Neck Exam Neck Exam: Normal Inspection - Respiratory Exam Respiratory Exam: Clear to Ausculation Bilateral, NORMAL BREATHING PATTERN - Cardiovascular Exam Cardiovascular Exam: REGULAR RHYTHM, +S1, +S2 - GI/Abdominal Exam GI & Abdominal Exam: Soft, Normal Bowel Sounds. absent: Tenderness - Extremities Exam Extremities Exam: Normal Inspection. absent: Calf Tenderness - Back Exam Back Exam: NORMAL INSPECTION - Neurological Exam Neurological Exam: Alert, Awake, Oriented x3 - Psychiatric Exam Psychiatric exam: Normal Affect, Normal Mood - Skin Skin Exam: Dry, Intact, Warm Assessment and Plan - Assessment and Plan (Free Text) Assessment: 56 F w/ PMHx GERD and H. Pylori Gastritis and recently diagnosed liver mass with adenocarcinoma with recurrence of RUQ abdominal pain. Plan: SOB w/ crackles - HCAP vs PE Leukocytosis improving Vancomycin/Doxycyclin Patient was febrile with leukocytosis f/u Chest CT F/u PNA workup with Mycoplasma, Legionaella, Strep and Flu F/u Ibrahim culture ID Consulted - Dr. Leonard - appreciate recommendations New R sided Hydronephrosis on Abdominal U/S as compared to previous imaging Strict Is and Os Monitor for potential urinary retention Hepatic Mass Consult GI for recs. SAM[facility]/Larry for possible surgeons willing to operate? CT Abdomen/Pelvis 10/19/18: Calcification of the wall of the gallbladder as well as mutiple gallstones. HIDA Scan (11/28/17): Nonvisualization of the gallbladder consistent with acute cholecystitis Abd U/S 11/27: nodular hepatic contour; correlate clinically for cirrhosis. Heterogenous hepatic parenchyma. Indeterminate 5 x 6.5 x 5.9cm R hepatic lobe mass; malignant neoplasm must be excluded. R sided hydronephrosis 2.8 x 2.6 x 3cm R lower pole cyst. GB sludge. GB wall thickening/pericholecystic edema measuring 4mm. General Surgery consulted - Dr. Whipple- recommendations appreciated regarding ? percutaneous ashley. drain Patient denies visiting her Heme/Onc Dr. Paris since recent discharge- recommendations appreciated. F/u in AM Transaminitis AST/ALT 72/62 likely 2/2 liver mass GI consult, Dr Mcclain - recommendations appreciated for transaminitis Constipation + Abd discomfort Miralax, and Senokot on board Repeat abd u/s shows hydronephrosis Consider advancing diet GI ppx: protonix 40mg po qd DVT ppx: SCDs Diet: NPO Case seen, examined and discussed with attending physician, Dr. Wilson <Arabella Wilson - Last Filed: 11/30/17 14:22> Objective - Vital Signs/Intake and Output Vital Signs (last 24 hours): Temp Pulse Resp BP Pulse Ox 98.6 F 91 H 20 128/68 95 11/30/17 08:29 11/30/17 08:29 11/30/17 08:29 11/30/17 08:29 11/30/17 08:29 Intake and Output: 11/30/17 11/30/17 06:59 18:59 Intake Total 540 Balance 540 - Medications Medications: Current Medications Doxycycline Hyclate (Doryx) 100 mg PO Q12 IVONNE; Protocol Stop: 12/08/17 22:01 Last Admin: 11/30/17 09:34 Dose: 100 mg Heparin Sodium (Porcine) (Heparin) 5,000 units SC Q8 IVONNE; Protocol Last Admin: 11/30/17 05:51 Dose: 5,000 units Sodium Chloride (Sodium Chloride 0.9%) 1,000 mls @ 75 mls/hr IV .[id number] IVONNE Last Admin: 11/29/17 16:27 Dose: 75 mls/hr Piperacillin Sod/Tazobactam Sod (Zosyn 3.375 In Ns 100ml) 100 mls @ 25 mls/hr IVPB Q8 [facility]; Protocol Stop: 12/08/17 22:01 Last Admin: 11/30/17 05:51 Dose: 25 mls/hr Ibuprofen (Motrin Tab) 400 mg PO Q6H PRN PRN Reason: Fever >100.4 F Last Admin: 11/30/17 09:34 Dose: 400 mg Ondansetron HCl (Zofran Inj) 4 mg IVP Q6H PRN PRN Reason: Nausea/Vomiting Oxycodone HCl (Oxycodone Immediate Release Tab) 5 mg PO Q4H PRN PRN Reason: Pain, severe (8-10) Last Admin: 11/29/17 14:20 Dose: 5 mg Pantoprazole Sodium (Protonix Ec Tab) 40 mg PO 0600 [facility] Last Admin: 11/30/17 05:52 Dose: 40 mg Polyethylene Glycol (Miralax) 17 gm PO DAILY [facility] Last Admin: 11/30/17 09:34 Dose: 17 gm Sennosides (Senokot Tab) 8.6 mg PO DAILY [facility] Last Admin: 11/30/17 09:35 Dose: 8.6 mg Simethicone (Mylicon Chew Tab) 80 mg PO [facility] PRN PRN Reason: GI distress Last Admin: 11/28/17 21:12 Dose: 80 mg - Labs Labs: 11/30/17 05:00 11/30/17 05:00 Attending/Attestation - Attestation I have personally seen and examined this patient.: Yes I have fully participated in the care of the patient.: Yes I have reviewed all pertinent clinical information, including history, physical exam and plan: Yes Notes (Text): 11/30/17 14:10 Attending note; Patient seen and examined with resident. Patient is alert and awake. Complaining of right upper quadrant pain on and off. Denies any fevers and chills. Denies any nausea, vomiting. Patient is a 56 year old [place] female with PMH of GERD and H. Pylori Gastritis and recently diagnosed liver mass/ porcelin gallbladder is admitted with recurrent right upper quadrant abdominal pain. The patient was recently discharged from the hospital after liver biopsy. 1. Abdominal pain. Porcelain gallbladder. Liver mass. Status post liver biopsy 11/17/2017. Biopsy results showed invasive adenocarcinoma in the liver most likely p ancreaticobiliary or upper GI malignancy. Patient was evaluated by Dr. Paris in the office. Refer to tertiary level of care. 2. surgery evaluation appreciated ; HIDA scan is positive for acute cholec ystitis . Currently on IV Zosyn and doxycycline. 3. Case reviewed with interventional radiologist Dr. Jamshid Conteh. Not a candidate for percutaneous tube placement. Advised to follow-up with hepatobiliary surgeon. try to contact [facility] oncology team. 4. Right lower lobe infiltrate; chest CT ordered. Continue doxycycline and Zosyn. Monitor for fever. ID evaluation appreciated. Case discussed with patient in detail. Patient will apply for francy care. Will discuss with catalytic case operator. Patient needs to follow up with tertiary care center for further evaluation upon discharge. Case was discussed in detail with the patient in Albanian regarding current diagnosis and treatment plan. All questions answered. 11/30/17 14:22
--- NOTE | 2017-11-30 00:33 | PN ---
DATE: 11/29/2017 SUBJECTIVE: The patient is in bed, in no acute distress, nontoxic. PHYSICAL EXAMINATION: VITAL SIGNS: On exam, the patient's temperature is 98, T-max is 102, blood pressure is 130/80, respiratory rate of 20, heart rate of 95. HEENT: Examination of HEENT is unremarkable. NECK: Supple. LUNGS: Have decreased breath sounds. HEART: Normal S1 and S2. ABDOMEN: Soft. LABORATORY DATA: Laboratory examination reveals the white count is down to 12,900, hemoglobin of 10. Chemistries reveals BUN of 13, creatinine of 0.9. Urinalysis is noted. Procalcitonin is 0.42. Serology is urine for Legionella antigen is negative. Microbiology reveals the blood cultures are no growth. Urine cultures, no growth. Review of orders reveals the patient to be on doxycycline and vancomycin. The patient's Zosyn is fallen off or discontinued by pharmacy. ASSESSMENT AND PLAN: A 56-year-old female, seen earlier today with history of advanced gallbladder cancer diagnosed on liver biopsy, adenocarcinoma of hepatobiliary origin and now admitted with sepsis, healthcare-associated pneumonia versus gastrointestinal source. Continues to have fever. On vancomycin, Zosyn, doxycycline. We will check on the final culture results. Urine for Legionella antigen is negative. The patient's alk phos and LFTs are elevated. Appeared to be improving. We will follow the fever curve and make further recommendations upon availability. Review of the HIDA scan shows nonvisualization of gallbladder consistent with acute cholecystitis. progress note is reviewed. Phill Leonard MD
[2017-11-30] MEDS: Piperacillin/Tazobact 3.375 gm 100 ML IVPB SCH ×3 (05:51→21:04)
[2017-11-30] MEDS: Pantoprazole 40 mg EC Tab PO SCH (05:52)
[2017-11-30] MEDS: Sodium Chloride 0.9% 1,000 ML IV SCH (06:05)
[2017-11-30 06:32] LABS: BASO # 0.02 K/mm3 (0.0-2.0); BASO % 0.2 % (0.0-3.0); EOS # 0.2 (0.0-0.7); EOS % 1.3 % (1.5-5.0); GRAN # 10.08 (1.4-6.5); GRAN % 79.4 % (50.0-68.0); LYMPH # 1.3 (1.2-3.4); LYMPH % 9.9 % (22.0-35.0); MEAN CELL VOLUME 89.3 fl (80.0-105.0); MEAN CORPUSCULAR HEMOGLOBIN 28.1 pg (25.0-35.0); MEAN CORPUSCULAR HGB CONC 31.5 g/dl (31.0-37.0); MONO # 1.2 (0.1-0.6); MONO % 9.2 % (1.0-6.0); RBC 3.91 10^6/uL (3.5-6.1); RED CELL DISTRIBUTION WIDTH 12.6 % (11.5-14.5); WHITE BLOOD COUNT 12.7 10^3/ul (4.5-11.0)
[2017-11-30 06:33] LABS: ALB/GLOB RATIO 0.9 (1.1-1.8); ALBUMIN 3.5 g/dL (3.0-4.8); ALT/SGPT 46 U/L (7-56); AST/SGOT 53 U/L (14-36); BLOOD UREA NITROGEN 12 mg/dL (7-21); GFR NON-AFRICAN AMERICAN > 60
[2017-11-30] MEDS ORDERED: Iohexol 350 MG/100 ML VIAL ONE (08:40)
[2017-11-30] MEDS: POLYETHYLENE GLYCOL 3350 17 GM/Dose PACKET PO SCH (09:34)
[2017-11-30] MEDS: Vancomycin 1gm in NS 250ml 1 GM/250 ML BAG IVPB SCH (09:35)
--- NOTE | 2017-11-30 11:18 | CT ---
Date of service: 11/30/2017 PROCEDURE: CT Chest with contrast HISTORY: gall bladder ca, for staging COMPARISON: None available. TECHNIQUE: Contiguous axial images were obtained through the chest with intravenous contrast enhancement. Sagittal and coronal reconstructions were performed. IV contrast: Radiation dose: Total exam DLP = 454.42 mGy-cm. This CT exam was performed using one or more of the following dose reduction techniques: Automated exposure control, adjustment of the mA and/or kV according to patient size, and/or use of iterative reconstruction technique. FINDINGS: LUNGS: Stable lower lobe infiltrates right greater than left compared to the prior CT scan of the abdomen and pelvis performed 11/28/2017. Biapical/upper lobe scarring right greater than left. No discrete pulmonary nodules or suspicious masses identified. MEDIASTINUM: Unremarkable thoracic aorta. No aneurysm or dissection. Normal sized heart. Main pulmonary artery unremarkable. No vascular congestion. No lymphadenopathy. No atherosclerotic calcification or mural plaque present. PLEURA: No pleural fluid. No pneumothorax. BONES: No fracture. No destructive lesion. UPPER ABDOMEN: Hepatomegaly. Multiple hepatic masses including the largest adjacent to the gallbladder measuring 6 x 10.3 cm on the coronal images. Additional smaller masses in the right hepatic lobe the preponderance of which are 2 cm or less. Partially calcified gallbladder with gallstones identified. There is attenuation of the portal vein which appears to be circumferentially enveloped by this mass. OTHER FINDINGS: None. IMPRESSION: 1. No measurable tumor above the diaphragms. 2. Lower lobe infiltrates right greater than left are stable. 3. Upper lobe scarring/atelectasis detected. 4. Hepatomegaly, extensive tumor burden in the liver particularly the right hepatic lobe adjacent to the gallbladder fossa. There is incompletely visualized wayne hepatis tumor as well.
--- NOTE | 2017-11-30 12:52 | CON ---
DATE OF CONSULTATION: 11/30/2017 REQUESTING PHYSICIAN: Arabella Wilson MD REASON FOR CONSULTATION: I have been asked to see this unfortunate 56-year-old female who comes to the hospital with right flank pain and epigastric pain for 2 days. The patient was diagnosed with adenocarcinoma of the liver, most likely originating from the gallbladder. Imaging studies revealed a porcelain gallbladder with an adjacent 8 x 10 cm mass occupying the right lobe of the liver. Immunohistochemical stains suggest the adenocarcinoma to be of hepatobiliary, possibly upper GI origin. She denies any early satiety, nausea, vomiting, weight loss. She currently does not have any postprandial abdominal pain. PAST MEDICAL HISTORY: Notable for H. pylori gastritis, GERD. PAST SURGICAL HISTORY: Notable for hysterectomy, . FAMILY HISTORY: Noncontributory. SOCIAL HISTORY: The patient denies cigarette smoking or alcohol use. MEDICATIONS AT HOME: Dicyclomine. REVIEW OF SYSTEMS: A 14-point review of systems is notable for right flank pain and epigastric pain. PHYSICAL EXAMINATION: Well-developed female lying in bed in no acute distress. Vital signs reveal temperature of 98.6, blood pressure 128/68, heart rate 91. HEENT reveal sclerae to be white. Conjunctivae pink. Neck is supple. Chest reveals scattered rhonchi. Heart exam reveals a regular rate and rhythm. Abdomen is soft. There is mild right flank tenderness. No rebound or guarding. Extremities show no edema. LABORATORY DATA: White blood cell count 12.7, hemoglobin 11, platelet count 365,000. Chemistries reveal AST 53, ALT 46, alkaline phosphatase of 330. IMPRESSION: This is an unfortunate 56-year-old female with recently diagnosed adenocarcinoma metastatic of the liver with a porcelain gallbladder gallstones. I suspect that the primary is gallbladder cancer as there is an association between porcelain gallbladder and gallbladder cancer. Her prognosis is extremely poor. There was nonvisualization of the gallbladder on hepatobiliary scan. I do not believe that the patient has acute cholecystitis. The nonvisualization of gallbladder is most likely related to her liver mass and porcelain gallbladder. RECOMMENDATIONS: 1. Consider palliative neoadjuvant chemotherapy. 2. There are no plans for an upper endoscopy at this time, as this will not alter the patient's treatment. Again, her prognosis is extremely poor. Leonard Almonte MD [facility] # [id number]
--- NOTE | 2017-11-30 13:09 | CP.PCM.PN ---
<Yonny Marin - Last Filed: 11/30/17 13:02> Subjective - Date & Time of Evaluation Date of Evaluation: 11/30/17 Time of Evaluation: 13:03 - Subjective Subjective: INTERNAL MEDICINE PROGRESS NOTE Yonny Marin PGY-1 Pt seen and examined at bedside this am. Pt had a fever of 102 overnight. No acute complaints. 12 point ROS is negative. Objective - Vital Signs/Intake and Output Vital Signs (last 24 hours): Temp Pulse Resp BP Pulse Ox 98.6 F 91 H 20 128/68 95 11/30/17 08:29 11/30/17 08:29 11/30/17 08:29 11/30/17 08:29 11/30/17 08:29 Intake and Output: 11/30/17 11/30/17 06:59 18:59 Intake Total 540 Balance 540 - Medications Medications: Current Medications Doxycycline Hyclate (Doryx) 100 mg PO Q12 IVONNE; Protocol Stop: 12/08/17 22:01 Last Admin: 11/30/17 09:34 Dose: 100 mg Heparin Sodium (Porcine) (Heparin) 5,000 units SC Q8 IVONNE; Protocol Last Admin: 11/30/17 05:51 Dose: 5,000 units Sodium Chloride (Sodium Chloride 0.9%) 1,000 mls @ 75 mls/hr IV .[id number] IVONNE Last Admin: 11/29/17 16:27 Dose: 75 mls/hr Piperacillin Sod/Tazobactam Sod (Zosyn 3.375 In Ns 100ml) 100 mls @ 25 mls/hr IVPB Q8 IVONNE; Protocol Stop: 12/08/17 22:01 Last Admin: 11/30/17 05:51 Dose: 25 mls/hr Ibuprofen (Motrin Tab) 400 mg PO Q6H PRN PRN Reason: Fever >100.4 F Last Admin: 11/30/17 09:34 Dose: 400 mg Ondansetron HCl (Zofran Inj) 4 mg IVP Q6H PRN PRN Reason: Nausea/Vomiting Oxycodone HCl (Oxycodone Immediate Release Tab) 5 mg PO Q4H PRN PRN Reason: Pain, severe (8-10) Last Admin: 11/29/17 14:20 Dose: 5 mg Pantoprazole Sodium (Protonix Ec Tab) 40 mg PO 0600 [facility] Last Admin: 11/30/17 05:52 Dose: 40 mg Polyethylene Glycol (Miralax) 17 gm PO DAILY [facility] Last Admin: 11/30/17 09:34 Dose: 17 gm Sennosides (Senokot Tab) 8.6 mg PO DAILY [facility] Last Admin: 11/30/17 09:35 Dose: 8.6 mg Simethicone (Mylicon Chew Tab) 80 mg PO [facility] PRN PRN Reason: GI distress Last Admin: 11/28/17 21:12 Dose: 80 mg - Labs Labs: 11/30/17 05:00 11/30/17 05:00 - Constitutional Appears: Well, Non-toxic, No Acute Distress - Head Exam Head Exam: NORMAL INSPECTION, NORMOCEPHALIC - Eye Exam Eye Exam: EOMI, Normal appearance - Neck Exam Neck Exam: Normal Inspection. absent: Meningismus - Respiratory Exam Respiratory Exam: Clear to Ausculation Bilateral, NORMAL BREATHING PATTERN - Cardiovascular Exam Cardiovascular Exam: REGULAR RHYTHM, +S1, +S2 - GI/Abdominal Exam GI & Abdominal Exam: Soft, Normal Bowel Sounds. absent: Tenderness - Extremities Exam Extremities Exam: Normal Inspection. absent: Calf Tenderness - Back Exam Back Exam: NORMAL INSPECTION - Neurological Exam Neurological Exam: Alert, Awake, Oriented x3 - Psychiatric Exam Psychiatric exam: Normal Affect, Normal Mood - Skin Skin Exam: Dry, Intact, Warm Assessment and Plan - Assessment and Plan (Free Text) Assessment: 56 F w/ PMHx GERD and H. Pylori Gastritis and recently diagnosed liver mass with adenocarcinoma with recurrence of RUQ abdominal pain. Plan: SOB w/ crackles - HCAP vs PE Leukocytosis improving Vancomycin/Doxycyclin Patient was febrile with leukocytosis F/u PNA workup with Mycoplasma, Legionaella, Strep and Flu F/u Ibrahim culture ID Consulted - Dr. Leonard - appreciate recommendations New R sided Hydronephrosis on Abdominal U/S as compared to previous imaging Strict Is and Os Monitor for potential urinary retention Hepatic Mass Consult GI for recs. SAMAN/Larry for possible surgeons willing to operate? General Surgery consulted - Dr. Whipple- recommendations appreciated regarding ? percutaneous ashley. drain Patient denies visiting her Heme/Onc Dr. Paris since recent discharge- recommendations appreciated. F/u in AM CT Chest (11/29/17): 1. No measurable tumor above the diaphragm. 2. Lower lobe infiltrates right greater than left are stable. 3. upper lobe scarring/atelectasis detected. 4. Hepatomegaly, extensive tumor burden in the liver particularly the right hepatic lobe adjacent to the gallbladder fossa. There is incompletely visualized wayne hepatis tumor as well. CT Abdomen/Pelvis 11/28/17: Calcification of the wall of the gallbladder as well as mutiple gallstones. HIDA Scan (11/28/17): Nonvisualization of the gallbladder consistent with acute cholecystitis Abd U/S 11/27: nodular hepatic contour; correlate clinically for cirrhosis. Heterogenous hepatic parenchyma. Indeterminate 5 x 6.5 x 5.9cm R hepatic lobe mass; malignant neoplasm must be excluded. R sided hydronephrosis 2.8 x 2.6 x 3cm R lower pole cyst. GB sludge. GB wall thickening/pericholecystic edema measuring 4mm. Transaminitis AST/ALT 72/62 likely 2/2 liver mass GI consult, Dr Mcclain - recommendations appreciated for transaminitis Constipation + Abd discomfort Miralax, and Senokot on board Repeat abd u/s shows hydronephrosis Consider advancing diet GI ppx: protonix 40mg po qd DVT ppx: SCDs Diet: NPO Case seen, examined and discussed with attending physician, Dr. Wilson <Arabella Wilson - Last Filed: 11/30/17 14:25> Objective - Vital Signs/Intake and Output Vital Signs (last 24 hours): Temp Pulse Resp BP Pulse Ox 98.6 F 91 H 20 128/68 95 11/30/17 08:29 11/30/17 08:29 11/30/17 08:29 11/30/17 08:29 11/30/17 08:29 Intake and Output: 11/30/17 11/30/17 06:59 18:59 Intake Total 540 Balance 540 - Medications Medications: Current Medications Doxycycline Hyclate (Doryx) 100 mg PO Q12 IVONNE; Protocol Stop: 12/08/17 22:01 Last Admin: 11/30/17 09:34 Dose: 100 mg Heparin Sodium (Porcine) (Heparin) 5,000 units SC Q8 IVONNE; Protocol Last Admin: 11/30/17 05:51 Dose: 5,000 units Sodium Chloride (Sodium Chloride 0.9%) 1,000 mls @ 75 mls/hr IV .[id number] [facility] Last Admin: 11/29/17 16:27 Dose: 75 mls/hr Piperacillin Sod/Tazobactam Sod (Zosyn 3.375 In Ns 100ml) 100 mls @ 25 mls/hr IVPB Q8 IVONNE; Protocol Stop: 12/08/17 22:01 Last Admin: 11/30/17 05:51 Dose: 25 mls/hr Ibuprofen (Motrin Tab) 400 mg PO Q6H PRN PRN Reason: Fever >100.4 F Last Admin: 11/30/17 09:34 Dose: 400 mg Ondansetron HCl (Zofran Inj) 4 mg IVP Q6H PRN PRN Reason: Nausea/Vomiting Oxycodone HCl (Oxycodone Immediate Release Tab) 5 mg PO Q4H PRN PRN Reason: Pain, severe (8-10) Last Admin: 11/29/17 14:20 Dose: 5 mg Pantoprazole Sodium (Protonix Ec Tab) 40 mg PO 0600 [facility] Last Admin: 11/30/17 05:52 Dose: 40 mg Polyethylene Glycol (Miralax) 17 gm PO DAILY [facility] Last Admin: 11/30/17 09:34 Dose: 17 gm Sennosides (Senokot Tab) 8.6 mg PO DAILY [facility] Last Admin: 11/30/17 09:35 Dose: 8.6 mg Simethicone (Mylicon Chew Tab) 80 mg PO [facility] PRN PRN Reason: GI distress Last Admin: 11/28/17 21:12 Dose: 80 mg - Labs Labs: 11/30/17 05:00 11/30/17 05:00 Attending/Attestation - Attestation I have personally seen and examined this patient.: Yes I have fully participated in the care of the patient.: Yes I have reviewed all pertinent clinical information, including history, physical exam and plan: Yes Notes (Text): 11/30/17 14:23 Attending note; Patient seen and examined with resident. Patient is alert and awake. Complaining of right upper quadrant pain on and off. Patient had MAXIMUM TEMPERATURE of 101 last night. Currently fever free. Denies any nausea, vomiting. Patient is a 56 year old [place]urn[place] female with PMH of GERD and H. Pylori Gastritis and recently diagnosed liver mass/ porcelin gallbladder is admitted with recurrent right upper quadrant abdominal pain. The patient was recently discharged from the hospital after liver biopsy. 1. Abdominal pain. Status post liver biopsy 11/17/2017. Biopsy results showed invasive adenocarcinoma in the liver most likely pancre aticobiliary or upper GI malignancy. Patient was evaluated by Dr. Paris in the office. Refer to tertiary level of care. 2. surgery evaluation appreciated ; HIDA scan is positive for acute cholecystit is . Currently on IV Zosyn and doxycycline. 3. Case reviewed with interventional radiologist Dr. Jamshid Conteh. Not a candidate for percutaneous tube placement. Advised to follow-up with hepatobiliary surgeon. try to contact [facility] oncology team. 4. Right lower lobe infiltrate; chest CT showed no metastatic disease. Bilateral lower lobe infiltrate right greater than the left. Continue doxycycline and Zosyn. Monitor for fever. ID evaluation appreciated. Blood culture is negative. MRSA screen negative. Urine culture negative so far. Case discussed with patient in detail. Patient will apply for [facility] care. Patient needs to follow up with tertiary care center for further evaluation upon discharge. Upon discharge patient will follow-up with [facility] clinic.
[2017-11-30] MEDS: oxyCODONE 5 mg Immediate Release Tab PO PRN (20:44)
--- NOTE | 2017-11-30 22:11 | PN ---
DATE: 11/30/2017 SUBJECTIVE: The patient is in bed, in no acute distress. No fevers, no chills. Uneventful night. PHYSICAL EXAMINATION: VITAL SIGNS: On exam, temperature is 98, blood pressure is 120/70, respiratory rate of 16. HEENT: Examination of HEENT is unremarkable. NECK: Supple. LUNGS: Have decreased breath sounds. HEART: Normal S1, S2. ABDOMEN: Soft, nontender. LABORATORY DATA: Laboratory examination reveals the patient's white count is 12,700, hemoglobin of 11, platelets of 365. Chemistries reveals a BUN of 12, creatinine of 0.8, procalcitonin 0.42. Urinalysis is noted. Serology, urine for Legionella antigen negative, strep antigen is negative. Microbiology reveals the blood cultures negative, urine cultures negative and CAT scan of the chest is pending. ASSESSMENT AND PLAN: A 56-year-old female with advanced gallbladder cancer diagnosed on liver biopsy, adenocarcinoma of hepatobiliary origin, admitted in this admission with sepsis, healthcare-associated pneumonia versus genitourinary, currently on vancomycin, Zosyn and doxycycline and microbiology with negative urine culture, negative sputum cultures and methicillin-sensitive Staphylococcus aureus screen is pending. Human immunodeficiency virus is pending and sputum cultures pending. The patient is on p.o. doxycycline, vancomycin and Zosyn. Since the blood cultures are negative and patient is on doxy, we will discontinue the IV vancomycin and we will check on the CAT scan of the chest and follow the fever curve and microbiology. Phill Leonard MD
[2017-12-01] MEDS: Piperacillin/Tazobact 3.375 gm 100 ML IVPB SCH ×3 (06:14→21:25)
[2017-12-01] MEDS: Pantoprazole 40 mg EC Tab PO SCH (06:14)
[2017-12-01 07:23] LABS: BASO # 0.03 K/mm3 (0.0-2.0); BASO % 0.3 % (0.0-3.0); EOS # 0.2 (0.0-0.7); EOS % 1.8 % (1.5-5.0); GRAN # 7.84 (1.4-6.5); GRAN % 74.1 % (50.0-68.0); HEMOGLOBIN 10.6 g/dL (12.0-16.0); LYMPH # 1.7 (1.2-3.4); LYMPH % 15.6 % (22.0-35.0); MEAN CELL VOLUME 88.6 fl (80.0-105.0); MEAN CORPUSCULAR HEMOGLOBIN 28.2 pg (25.0-35.0); MEAN CORPUSCULAR HGB CONC 31.8 g/dl (31.0-37.0); MEAN PLATELET VOLUME 8.9 fl (7.0-11.0); MONO # 0.9 (0.1-0.6); MONO % 8.2 % (1.0-6.0); RBC 3.76 10^6/uL (3.5-6.1); RED CELL DISTRIBUTION WIDTH 12.5 % (11.5-14.5); WHITE BLOOD COUNT 10.6 10^3/ul (4.5-11.0)
[2017-12-01 07:37] LABS: ALB/GLOB RATIO 0.8 (1.1-1.8); ALBUMIN 3.1 g/dL (3.0-4.8); ALT/SGPT 37 U/L (7-56); AST/SGOT 46 U/L (14-36); BLOOD UREA NITROGEN 11 mg/dL (7-21); CALCIUM 8.7 mg/dL (8.4-10.5); GFR NON-AFRICAN AMERICAN > 60
--- NOTE | 2017-12-01 07:51 | CP.PCM.PN ---
<Scottie Valadez - Last Filed: 12/01/17 14:44> Subjective - Date & Time of Evaluation Date of Evaluation: 12/01/17 Time of Evaluation: 07:48 - Subjective Subjective: Scottie Valadez DO, PGY-1 Hospitalist Progress Note for Dr. Handy Cr Patient was seen and examined at bedside this AM. She has no new complaints this AM and states her abdominal pain has improved since admission. Objective - Vital Signs/Intake and Output Vital Signs (last 24 hours): Temp Pulse Resp BP Pulse Ox 99 F 72 20 129/69 95 12/01/17 07:43 12/01/17 07:43 12/01/17 07:43 12/01/17 07:43 12/01/17 07:43 Intake and Output: 12/01/17 12/01/17 06:59 18:59 Intake Total 540 Balance 540 - Medications Medications: Current Medications Doxycycline Hyclate (Doryx) 100 mg PO Q12 IVONNE; Protocol Stop: 12/08/17 22:01 Last Admin: 11/30/17 21:03 Dose: 100 mg Heparin Sodium (Porcine) (Heparin) 5,000 units SC Q8 IVONNE; Protocol Last Admin: 12/01/17 06:14 Dose: 5,000 units Sodium Chloride (Sodium Chloride 0.9%) 1,000 mls @ 75 mls/hr IV .[id number] IVONNE Last Admin: 11/30/17 06:05 Dose: Not Given Piperacillin Sod/Tazobactam Sod (Zosyn 3.375 In Ns 100ml) 100 mls @ 25 mls/hr IVPB Q8 IVONNE; Protocol Stop: 12/08/17 22:01 Last Admin: 12/01/17 06:14 Dose: 25 mls/hr Ibuprofen (Motrin Tab) 400 mg PO Q6H PRN PRN Reason: Fever >100.4 F Last Admin: 12/01/17 02:18 Dose: 400 mg Ondansetron HCl (Zofran Inj) 4 mg IVP Q6H PRN PRN Reason: Nausea/Vomiting Oxycodone HCl (Oxycodone Immediate Release Tab) 5 mg PO Q4H PRN PRN Reason: Pain, severe (8-10) Last Admin: 11/30/17 20:44 Dose: 5 mg Pantoprazole Sodium (Protonix Ec Tab) 40 mg PO 0600 [facility] Last Admin: 12/01/17 06:14 Dose: 40 mg Polyethylene Glycol (Miralax) 17 gm PO DAILY [facility] Last Admin: 11/30/17 09:34 Dose: 17 gm Sennosides (Senokot Tab) 8.6 mg PO DAILY [facility] Last Admin: 11/30/17 09:35 Dose: 8.6 mg Simethicone (Mylicon Chew Tab) 80 mg PO [facility] PRN PRN Reason: GI distress Last Admin: 11/28/17 21:12 Dose: 80 mg - Labs Labs: 12/01/17 07:00 12/01/17 07:00 - Constitutional Appears: Non-toxic, No Acute Distress - Head Exam Head Exam: ATRAUMATIC, NORMAL INSPECTION - Eye Exam Eye Exam: EOMI, Normal appearance, PERRL - ENT Exam ENT Exam: Mucous Membranes Moist - Neck Exam Neck Exam: Full ROM, Normal Inspection. absent: Thyromegaly - Respiratory Exam Respiratory Exam: Rales (R > L basilar crackles), NORMAL BREATHING PATTERN. absent: Accessory Muscle Use, Rhonchi, Wheezes - Cardiovascular Exam Cardiovascular Exam: REGULAR RHYTHM, RRR, +S1, +S2. absent: Gallop, Rubs, Murmur - GI/Abdominal Exam GI & Abdominal Exam: Soft, Normal Bowel Sounds. absent: Guarding, Tenderness, Rebound - Extremities Exam Extremities Exam: Full ROM. 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 Plan: 1. HCAP vs scaring atelectasis Lower lobe infiltrates R > L identified on chest CT Treating for presumed HCAP although procal, urine legionella, and urine strep pneumo are negative Patient denies fever, chills, cough, SOB Per ID, continue with vanc/doxycycline 2. 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 Transaminitis Likely 2/2 underlying tumor burden Continue to monitor 4. Normocytic anemia May be 2/2 malignancy Consider iron studies if worsening Continue to monitor H/H closely GI/DVT PPX: Protonix, SC heparin, SCDs Full Code Monitor on med/surg Case and plan reviewed and discussed with my attending Dr. Handy Valadez DO IM Resident PGY-1 <Jeanne Cr R - Last Filed: 12/02/17 15:42> Objective - Vital Signs/Intake and Output Vital Signs (last 24 hours): Temp Pulse Resp BP Pulse Ox 99.8 F H 101 H 20 127/85 90 L 12/02/17 14:00 12/02/17 14:00 12/02/17 14:00 12/02/17 14:00 12/02/17 14:00 Intake and Output: 12/02/17 12/02/17 06:59 18:59 Intake Total 540 Balance 540 - Medications Medications: Current Medications Amoxicillin/Clavulanate Potassium (Augmentin 875 Mg-125 Mg Tab) 1 tab PO Q12 IVONNE; Protocol Stop: 12/07/17 10:16 Last Admin: 12/02/17 13:05 Dose: 1 tab Doxycycline Hyclate (Doryx) 100 mg PO Q12 IVONNE; Protocol Stop: 12/08/17 22:01 Last Admin: 12/02/17 09:26 Dose: 100 mg Heparin Sodium (Porcine) (Heparin) 5,000 units SC Q8 IVONNE; Protocol Last Admin: 12/02/17 05:37 Dose: 5,000 units Ibuprofen (Motrin Tab) 400 mg PO Q6H PRN PRN Reason: Fever >100.4 F Last Admin: 12/01/17 21:24 Dose: 400 mg Ondansetron HCl (Zofran Inj) 4 mg IVP Q6H PRN PRN Reason: Nausea/Vomiting Pantoprazole Sodium (Protonix Ec Tab) 40 mg PO 0600 [facility] Last Admin: 12/02/17 05:37 Dose: 40 mg Polyethylene Glycol (Miralax) 17 gm PO DAILY [facility] Last Admin: 12/02/17 09:26 Dose: 17 gm Sennosides (Senokot Tab) 8.6 mg PO DAILY [facility] Last Admin: 12/02/17 09:26 Dose: 8.6 mg Simethicone (Mylicon Chew Tab) 80 mg PO [facility] PRN PRN Reason: GI distress Last Admin: 11/28/17 21:12 Dose: 80 mg - Labs Labs: 12/02/17 06:45 12/02/17 06:45 Attending/Attestation - Attestation I have personally seen and examined this patient.: Yes I have fully participated in the care of the patient.: Yes I have reviewed all pertinent clinical information, including history, physical exam and plan: Yes Notes (Text): Patient seen and examined by me with resident at 12:10PM on 12/01/17 with resident. Case including HPI, physical exam, and assessment and plan discussed with resident. Agree with above with following additions/corrections. Patient is a 56-year-old female with past medical history of GERD, gastritis, H. 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 Patient is french speaking. automobile lights assembler #[id number], Aleah, used for translation. Patient states she is feeling much better. Abdominal pain has improved. Pain medications are helping. Patient denies any coughing or shortness of breath. Patient states that she is tolerating her diet and eating a little better. No nausea or vomiting. Patient denies any chest pain or palpitations. No fevers or chills. No headaches or dizziness. No dysuria. No diarrhea or constipation. Physical exam: Gen: Awake and alert lying in bed in no acute distress HEENT: Normocephalic, atraumatic. Extraocular muscles intact, pupils equal reactive. No scleral icterus. Oropharynx is pink and moist. Neck is supple. Cardiovascular: Normal rhythm. Normal S1, S2. No murmurs, rubs, or gallops appreciated Pulmonary: Normal respiratory effort. Decreased breath sounds. No rhonchi, rales, or wheezing appreciated. Gastrointestinal: Soft, nondistended. Mild right upper quadrant tenderness with palpation. Positive bowel sounds all 4 quadrants, no guarding. Musculoskeletal: Moves all extremities. No calf tenderness. No edema appreciated. Central nervous system: AAO x 3. CN 2-12 grossly intact Dermatologic: Skin warm and dry Assessment and Plan: Patient is a 56-year-old female with past medical history of GERD, gastritis, H. 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 1. Abdominal pain. Abdominal ultrasound per radiologist showed heterogeneous 11.4 x 10 x 7.6 cm region of the right hepatic lobe, possibly mass; cholelithiasis, dilated common bile duct; peripancreatic lymph node measuring approximately 1.2 x 0.9 cm; fullness of the left renal collecting system; right renal cyst; splenomegaly. CT abdomen and pelvis per radiologist showed calcification of the wall of the gallbladder as well as multiple gallstones, no evidence of hydronephrosis, no acute intra-abdominal findings. HIDA scan per radiologist showed nonvisualization of the gallbladder consistent with acute cholecystitis. ID following, recommendations appreciated. Continue Zosyn and doxycycline. Continue pain management. Surgery following, recommendations appreciated. GI following, recommendations appreciated. Per GI, no need for any biliary intervention at this time. Per surgical team, patient needs further workup including colonoscopy and EGD and staging. Patient will need to follow-up with surgical oncologist. Per surgical team, no surgical intervention at this time. 2. Shortness of breath. Improved. CT chest per radiologist shows no measurable tumor above the diaphragms, lower lobe infiltrates right greater than left are stable, upper lobe scarring/atelectasis detected; hepatomegaly, extensive tumor burden in the liver particularly the right hepatic lobe adjacent to the gallbladder fossa, there is incompletely visualized wayne hepatis tumor as well. 3. Transaminitis. Likely secondary to liver mass. Continue to monitor. GI following, recommendations appreciated. 4. Leukocytosis. Likely secondary to acute cholecystitis. Leukocytosis resolved. Continue to monitor. 5. Hypokalemia. Will replace with oral potassium. Follow up repeat labs in a.m. 6. Constipation. Continue MiraLAX and senna. 7. Anemia. Likely secondary to malignancy. H&H stable. Continue to monitor CBC. 8. GI/DVT prophylaxis. Protonix/subcutaneous heparin 9. Patient is a full code. Patient with poor prognosis. Palliative care con sulted. Case was discussed in detail with the patient regarding current diagnosis and treatment plan, all questions answered.
[2017-12-01] MEDS: POLYETHYLENE GLYCOL 3350 17 GM/Dose PACKET PO SCH (09:35)
[2017-12-01] MEDS: Potassium Chloride 20 mEq ER Tab PO SCH ×2 (09:36→14:16)
[2017-12-01] MEDS: Sodium Chloride 0.9% 1,000 ML IV SCH (14:11)
[2017-12-01] MEDS: oxyCODONE 5 mg Immediate Release Tab PO PRN (18:02)
--- NOTE | 2017-12-01 19:40 | PN ---
DATE: 12/01/2017 SUBJECTIVE: The patient feels better. She is lying in bed. Her right upper quadrant and epigastric pain are much less. She is tolerating a diet. She denies any nausea, vomiting. PHYSICAL EXAMINATION: VITAL SIGNS: Reveal temperature of 99, blood pressure 129/69, heart rate of 72. HEENT: Reveals sclerae to be white. Conjunctivae pink. NECK: Supple. CHEST: Lungs are clear. HEART: Reveals regular rate and rhythm. ABDOMEN: Soft with mild right upper quadrant/flank tenderness. EXTREMITIES: Show no edema. LABORATORY DATA: Reveal white blood cell count 10.6, hemoglobin 10.6. Chemistries reveal AST 46, ALT 37, alkaline phosphatase of 310. IMPRESSION: Unfortunate 56-year-old female with metastatic adenocarcinoma of the liver most likely originating from a gallbladder cancer. The patient was noted to have a porcelain gallbladder on CAT scan. The liver mass extends from the gallbladder fossa. Her long-term prognosis is extremely poor. There is no need for any biliary intervention at this time as there is no evidence of biliary obstruction. RECOMMENDATIONS: Oncology input as to whether palliative chemotherapy will be of any benefit. She is stable from a GI standpoint. Leonard Almonte MD
--- NOTE | 2017-12-01 20:18 | PN ---
DATE: 12/01/2017 SUBJECTIVE: The patient is in bed, in no acute distress, nontoxic. PHYSICAL EXAMINATION: VITAL SIGNS: Temperature is 99, blood pressure is 112/60, respiratory rate of 18. HEENT: Unremarkable. NECK: Supple. LUNGS: Have decreased breath sounds. HEART: Normal S1, S2. ABDOMEN: Soft, nontender. LABORATORY EXAMINATION: Reveals a white count of 10,000, hemoglobin of 10, platelets of 356. BUN of 11, creatinine of 0.8. HIV is negative. Urine Legionella antigen is negative, and blood cultures are negative. Microbiology, nares MRSA is not detected. Urine cultures negative. Repeat blood cultures are negative.. ASSESSMENT AND PLAN: This is a 56-year-old female with advanced gallbladder cancer diagnosed with liver biopsy, adenocarcinoma of hepatobiliary origin, admitted with sepsis, healthcare-associated pneumonia versus genitourinary. Currently on Zosyn and doxycycline. Blood cultures are negative. Nares are negative. The patient had a CAT scan of the chest. Lower lobe infiltrates are noted. Today is day #3 of 4 to 7 days of antibiotics with complete 4 to 7 days of antibiotics, day #3 for this patient who is in poor condition. Phill Leonard MD
[2017-12-02] MEDS: Sodium Chloride 0.9% 1,000 ML IV SCH (04:46)
[2017-12-02] MEDS: Piperacillin/Tazobact 3.375 gm 100 ML IVPB SCH (05:36)
[2017-12-02] MEDS: Pantoprazole 40 mg EC Tab PO SCH (05:37)
[2017-12-02 07:17] LABS: BASO # 0.02 K/mm3 (0.0-2.0); BASO % 0.2 % (0.0-3.0); EOS # 0.3 (0.0-0.7); EOS % 2.7 % (1.5-5.0); GRAN # 7.62 (1.4-6.5); GRAN % 72.9 % (50.0-68.0); HEMOGLOBIN 10.9 g/dL (12.0-16.0); LYMPH # 1.6 (1.2-3.4); LYMPH % 14.8 % (22.0-35.0); MEAN CELL VOLUME 89.2 fl (80.0-105.0); MEAN CORPUSCULAR HEMOGLOBIN 27.9 pg (25.0-35.0); MEAN CORPUSCULAR HGB CONC 31.3 g/dl (31.0-37.0); MONO % 9.4 % (1.0-6.0); RBC 3.9 10^6/uL (3.5-6.1); RED CELL DISTRIBUTION WIDTH 12.8 % (11.5-14.5); WHITE BLOOD COUNT 10.5 10^3/ul (4.5-11.0)
[2017-12-02 07:29] LABS: ALB/GLOB RATIO 0.9 (1.1-1.8); ALBUMIN 3.3 g/dL (3.0-4.8); ALT/SGPT 37 U/L (7-56); AST/SGOT 47 U/L (14-36); BLOOD UREA NITROGEN 11 mg/dL (7-21); CALCIUM 8.9 mg/dL (8.4-10.5); GFR NON-AFRICAN AMERICAN > 60
[2017-12-02] MEDS: POLYETHYLENE GLYCOL 3350 17 GM/Dose PACKET PO SCH (09:26)
[2017-12-02] MEDS: oxyCODONE 5 mg Immediate Release Tab PO PRN ×2 (09:26→13:05)
[2017-12-02] MEDS ORDERED: Amoxicillin-Clav 875-125 mg Tab PO SCH (10:15)
--- NOTE | 2017-12-02 12:20 | PN ---
DATE: 12/02/2017 SUBJECTIVE: The patient is in bed, in no acute distress. PHYSICAL EXAMINATION: VITAL SIGNS: On exam, temperature is 98, blood pressure is 112/70, respiratory rate of 16. HEENT: Examination of HEENT is unremarkable. NECK: Supple. LUNGS: Have decreased breath sounds. HEART: Normal S1 and S2. ABDOMEN: Soft. LABORATORY DATA: Laboratory examination reveals a white count of 10,500, hemoglobin of 10, platelets of 381. Chemistries are noted. Urine is noted. Serology is reviewed. Microbiology is reviewed. ASSESSMENT AND PLAN: A 56-year-old female with advanced gallbladder cancer, diagnosed with liver biopsy, adenocarcinoma of hepatobiliary origin. Admitted with sepsis, healthcare-associated pneumonia. On Zosyn and doxycycline, today is day #4, may switch to p.o. antibiotics upon discharge. The patient is now afebrile and urine cultures are negative. Blood cultures are negative. Nares methicillin-resistant Staphylococcus aureus screen is negative. Urine Legionella antigen is negative. The patient's procalcitonin was also negative. We may discontinue the Zosyn and complete with p.o. doxycycline x5 days and p.o. Augmentin x5 days. Overall prognosis is poor. Phill Leonard MD
[2017-12-02 14:42] VITALS: BP 127/85; PULSE 101; RESP 20; TEMP 99.8; O2SAT 90
--- NOTE | 2017-12-02 16:07 | CON ---
PROCEDURE DATE: 12/02/2017 ONCOLOGY CONSULTATION HISTORY OF PRESENT ILLNESS: This is a 56-year-old woman who has an adenocarcinoma in her liver. Patient was admitted for nausea and decreased appetite, but also severe pain in her right upper quadrant. PHYSICAL EXAMINATION: SKIN: No petechiae. No bruises. HEENT: Anicteric. NODES: Nonpalpable in the axillary, cervical, supraclavicular or inguinal regions. LUNGS: Clear at present. No vertebral tenderness. BREASTS: No masses, discharge, dimpling. ABDOMEN: Shows no ascites, but some tenderness in the right upper quadrant. It is hard to really press on her because of the tenderness. EXTREMITIES: No edema. ENROLLMENT MANAGEMENT DIRECTOR: No focal findings. Patient has adenocarcinoma in the liver on the biopsy. ASSESSMENT: We have to rule out gastrointestinal source in terms of gastric and/or colon lesions, so she needs an upper and lower endoscopy on the assumption that this therefore is not in the gastrointestinal tract. It will be pancreas, gallbladder or primary liver. It seems that she has to be in a larger medical center which has a multispecialty approach to cancer in the liver. Either she could get resection or embolectomy or radiofrequency ablation or infusion of treatment, but as I said possibly cholecystectomy. I told her that is what she needs. The second thing is that she is still in a lot of pain, the right upper quadrant pain. She is on Percocet every 4 hours, it is not helping as she still has a lot of pain. We would up the doses either to 10 mg or put her on a longer acting Fentanyl patch or MS Contin to try to get better relief. I explained this to her. I sally a diagram for her. I showed her where the cancer was used over cancer. I explained that she has to be in a medical center that has specialists in terms of liver resection and multi-speciality group in case she want to add other treatments to it. So she is aware of that. I think from a very practical point of view, I believe she should be given the results of all her tests, discharge her and tell her which hospital to go to. In terms of psychosocial situation, she lives with a niece who works all the time, so she is only around on the weekends, it is on the Friday. She really has very little support to get her where she is going. I think she should be if possible they can call the doctor up at [facility], but I think she should go to [facility] and be admitted through the emergency room. Fuad MD [place]
--- NOTE | 2017-12-02 16:12 | CP.PCM.DIS ---
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 Hospital Course - Lab Results Lab Results: Micro Results 11/27/17 20:20 Blood Blood Culture - Preliminary NO GROWTH AFTER 4 DAYS 11/27/17 20:00 Blood Blood Culture - Preliminary NO GROWTH AFTER 4 DAYS 11/29/17 16:22 Blood-Venous Blood Culture - Preliminary NO GROWTH AFTER 48 HOURS 11/29/17 16:00 Blood-Venous Blood Culture - Preliminary NO GROWTH AFTER 48 HOURS 11/28/17 21:00 Naris MRSA Culture (Admit) - Final MRSA NOT DETECTED 11/28/17 03:00 Urine Urine Culture - Final No Growth (<1,000 CFU/ML) Most Recent Lab Values WBC 10.5 10^3/ul (4.5-11.0) 12/02/17 06:45 RBC 3.90 10^6/uL (3.5-6.1) 12/02/17 06:45 Hgb 10.9 g/dL (12.0-16.0) L 12/02/17 06:45 Hct 34.8 % (36.0-48.0) L 12/02/17 06:45 MCV 89.2 fl (80.0-105.0) 12/02/17 06:45 MCH 27.9 pg (25.0-35.0) 12/02/17 06:45 MCHC 31.3 g/dl (31.0-37.0) 12/02/17 06:45 RDW 12.8 % (11.5-14.5) 12/02/17 06:45 Plt Count 381 10^3/uL (120.0-450.0) 12/02/17 06:45 MPV 9.0 fl (7.0-11.0) 12/02/17 06:45 Gran % 72.9 % (50.0-68.0) H 12/02/17 06:45 Lymph % (Auto) 14.8 % (22.0-35.0) L 12/02/17 06:45 Labette % (Auto) 9.4 % (1.0-6.0) H 12/02/17 06:45 Eos % (Auto) 2.7 % (1.5-5.0) 12/02/17 06:45 Baso % (Auto) 0.2 % (0.0-3.0) 12/02/17 06:45 Gran # 7.62 (1.4-6.5) H 12/02/17 06:45 Lymph # (Auto) 1.6 (1.2-3.4) 12/02/17 06:45 Labette # (Auto) 1.0 (0.1-0.6) H 12/02/17 06:45 Eos # (Auto) 0.3 (0.0-0.7) 12/02/17 06:45 Baso # (Auto) 0.02 K/mm3 (0.0-2.0) 12/02/17 06:45 pO2 87 mm/Hg (30-55) H 11/27/17 20:27 VBG pH 7.48 (7.32-7.43) H 11/27/17 20:27 VBG pCO2 36.0 (40-60) L 11/27/17 20:27 VBG HCO3 26.8 mmol/l (21-28) 11/27/17 20:27 VBG Total CO2 27.9 mmol.L (22-28) 11/27/17 20:27 VBG O2 Sat (Calc) 98.2 % (40-65) H 11/27/17 20:27 VBG Base Excess 3.4 mmol/L (0.0-2.0) H 11/27/17 20:27 VBG Potassium 3.9 mmol/L (3.6-5.2) 11/27/17 20:27 Sodium 134.0 mmol/L (132-148) 11/27/17 20:27 Chloride 102.0 mmol/L (98-107) 11/27/17 20: Glucose 145 mg/dl (65-105) H 11/27/17 20:27 Lactate 1.6 mmol/L (0.7-2.1) 11/27/17 20:27 FiO2 21.0 % 11/27/17 20:27 Sodium 140 mmol/L (132-148) 12/02/17 06:45 Potassium 3.9 mmol/L (3.6-5.0) 12/02/17 06:45 Chloride 109 mmol/L (98-107) H 12/02/17 06:45 Carbon Dioxide 24 mmol/L (21-33) 12/02/17 06:45 Anion Gap 11 (10-20) 12/02/17 06:45 BUN 11 mg/dL (7-21) 12/02/17 06:45 Creatinine 0.8 mg/dl (0.7-1.2) 12/02/17 06:45 Est GFR ( Amer) > 60 12/02/17 06:45 Est GFR (Non-Af Amer) > 60 12/02/17 06:45 Random Glucose 112 mg/dL (70-110) H 12/02/17 06:45 Calcium 8.9 mg/dL (8.4-10.5) 12/02/17 06:45 Phosphorus 4.1 mg/dL (2.5-4.5) 12/02/17 06:45 Magnesium 2.3 mg/dL (1.7-2.2) H 12/02/17 06:45 Total Bilirubin 0.7 mg/dL (0.2-1.3) 12/02/17 06:45 AST 47 U/L (14-36) H 12/02/17 06:45 ALT 37 U/L (7-56) 12/02/17 06:45 Alkaline Phosphatase 326 U/L (38-126) H 12/02/17 06:45 Total Protein 6.9 g/dL (5.8-8.3) 12/02/17 06:45 Albumin 3.3 g/dL (3.0-4.8) 12/02/17 06:45 Globulin 3.7 gm/dL 12/02/17 06:45 Albumin/Globulin Ratio 0.9 (1.1-1.8) L 12/02/17 06:45 Lipase 127 U/L (23-300) 11/27/17 20:20 Procalcitonin 0.42 NG/ML (0.19-0.49) 11/28/17 21:20 Venous Blood Potassium 3.9 mmol/L (3.6-5.2) 11/27/17 20:27 Urine Color Yellow (YELLOW) 11/28/17 03:00 Urine Appearance Sl cloudy (CLEAR) 11/28/17 03:00 Urine pH 6.0 (4.7-8.0) 11/28/17 03:00 Ur Specific [place] >= 1.030 (1.005-1.035) 11/28/17 03:00 Urine Protein 100 mg/dL (<30 mg/dL) H 11/28/17 03:00 Urine Glucose (UA) Negative mg/dL (NEGATIVE) 11/28/17 03:00 Urine Ketones Negative mg/dL (NEGATIVE) 11/28/17 03:00 Urine Blood Trace-intact (NEGATIVE) H 11/28/17 03:00 Urine Nitrate Negative (NEGATIVE) 11/28/17 03:00 Urine Bilirubin Negative (NEGATIVE) 11/28/17 03:00 Urine Urobilinogen 1.0 E.U./dL (<1 E.U./dL) H 11/28/17 03:00 Ur Leukocyte Esterase Negative Dominguez/uL (NEGATIVE) 11/28/17 03:00 Urine RBC 0 - 2 /hpf (0-2) 11/28/17 03:00 Urine WBC 0 - 2 /hpf (0-6) 11/28/17 03:00 Ur Epithelial Cells 3 - 4 /hpf (0-5) 11/28/17 03:00 Urine Bacteria Few (NEG) 11/28/17 03:00 HIV 1&2 Ag/Ab, 4th Gen Nonreactive (Nonreactive) 11/28/17 21:20 Ur L.pneumophila Ag Negative (NEGATIVE) 11/28/17 03:00 Ur Strep pneumoniae Ag Not detected (Not Detected) 11/28/17 03:00 - Hospital Course Hospital Course: Scottie Valadez DO, PGY-1 Hospitalist Discharge Summary for Dr. Handy Cr Upon Admission: Patient is a 56 year old female who came to the ER with RUQ/epigastric pain 3 weeks ago. She was found to have porcelain gallbladder and liver mass on CT. She was subsequently admitted for closer observation, pain management, and workup. Biopsy of the liver lesion confirmed a diagnosis of adenocarcinoma. She was discharged with instruction to follow up with heme/onc outpatient. She returned to ED with worsening RUQ pain for which she did not take any pain medications at home, associated with nausea, chills, a slight cough, and some shortness of breath when walking. She did not follow up with a specialist following her initial discharge. In the ED, the patient was found to be febrile, tachycardic, have leukocytosis (14.3), and in pain, for which she was given tylenol, IV fluids, morphine and toradol. Hospital Course: During this hospital stay, she had an ultrasound done which was correlated to the prior CT done on 11/14/2017. A right hepatic lobe heterogenous mass was found, in addition to cholelithiasis with gallbladder wall thickening and peripa ncreatic lymph node. A chest xray revealed an unchanged pleural effusion with right lower lobe infiltrate from her previous stay. A Chest CT done during this stay showed no tumor above the diaphragm, but showed lower lobe infiltrates greater on the right than the left, which were stable. It also showed upper lobe scarringatelectasis, hepatomegaly with extensive tumor burden in the liver, especially in the right hepatic lobe next to the gallbladder fossa, which was incompletely visualized wayne hepatis tumor. A HIDA scan was done to work up possible cholelithiasis, which revealed non-visualization of the gallbladder c/w acute cholecystitis. CT Abdomen/Pelvis showed calcification of gallbladder wall and multiple gallstones, with no evidence of hydronephrosis and no acute intra- abdominal findings. Upon lab work, transaminitis and normocytic anemia was also found, which were likely secondary to underlying tumor burden and her malignancy. The patient improved over the course of her stay with resolved abdominal pain. She was afebrile with no leukocytosis, and a stable H/H upon discharge. Discharge: Patient is stable and medically cleared for discharge. As per gastroenterology, palliative chemo was suggested. She has blood cultures still pending. She was advised to follow up at [facility] within 3-5 days to get the proper referrals needed for joshua care at [facility]. She was given the phone number and address for GI clinic at [facility]. The patient was also suggested to return to the nearest ER if her symptoms reoccur or progressively worsen. Discharge Exam - Head Exam Head Exam: ATRAUMATIC, NORMAL INSPECTION - Eye Exam Eye Exam: EOMI, PERRL - ENT Exam ENT Exam: Mucous Membranes Moist - Neck Exam Neck exam: Full Rom, Normal Inspection - Respiratory Exam Respiratory Exam: Clear to PA & Lateral, NORMAL BREATHING PATTERN. absent: Accessory Muscle Use, Rales, Rhonchi, Wheezes - Cardiovascular Exam Cardiovascular Exam: REGULAR RHYTHM, RRR, +S1, +S2. absent: Diastolic murmur, Gallop, Rubs, Systolic Murmur - GI/Abdominal Exam GI & Abdominal Exam: Normal Bowel Sounds, Soft. absent: Distended, Firm, Guarding - Extremities Exam Extremities exam: normal inspection, pedal pulses present - Neurological Exam Neurological exam: Alert, Oriented x3 - Psychiatric Exam Psychiatric exam: Normal Affect, Normal Mood - Skin Skin Exam: Dry, Intact, Warm Discharge Plan - Discharge Medications Prescriptions: RX: Amoxicillin/Clavulanate [Augmentin 875 MG-125 MG Tab] 1 tab PO Q12 5 Days #10 tab RX: Doxycycline Hyclate [Doryx] 100 mg PO Q12 10 Days #20 cap - Follow Up Plan Condition: FAIR Disposition: HOME/ ROUTINE Instructions: Acute Abdomen (Belly Pain), Adult (DC), Community-Acquired Pneumonia, Adult (DC), Constipation (DC) Additional Instructions: Follow up at primary care doctor's office here at [facility]. The doctor's name is Dr. Green. We left a voicemail to set up an appointment for you. Phone number for [facility] is [phone]. Please follow up with control clerk head at [facility], please call [phone] to make an appointment. Please take antibiotics as prescribed. Please go to nearest emergency room if symptoms recur. Referrals: [facility] at [facility] [Outside] <Jeanne Cr R - Last Filed: 12/04/17 07:57> Provider - Provider Date of Admission: 11/27/17 23:45 Attending physician: Arabella Wilson MD Hospital Course - Lab Results Lab Results: Micro Results 11/29/17 16:22 Blood-Venous Blood Culture - Preliminary NO GROWTH AFTER 4 DAYS 11/29/17 16:00 Blood-Venous Blood Culture - Preliminary NO GROWTH AFTER 4 DAYS 11/27/17 20:20 Blood Blood Culture - Final NO GROWTH AFTER 5 DAYS 11/27/17 20:20 Blood Gram Stain - Final TEST NOT PERFORMED 11/27/17 20:00 Blood Blood Culture - Final NO GROWTH AFTER 5 DAYS 11/27/17 20:00 Blood Gram Stain - Final TEST NOT PERFORMED 11/28/17 21:00 Naris MRSA Culture (Admit) - Final MRSA NOT DETECTED 11/28/17 03:00 Urine Urine Culture - Final No Growth (<1,000 CFU/ML) Most Recent Lab Values WBC 10.5 10^3/ul (4.5-11.0) 12/02/17 06:45 RBC 3.90 10^6/uL (3.5-6.1) 12/02/17 06:45 Hgb 10.9 g/dL (12.0-16.0) L 12/02/17 06:45 Hct 34.8 % (36.0-48.0) L 12/02/17 06:45 MCV 89.2 fl (80.0-105.0) 12/02/17 06:45 MCH 27.9 pg (25.0-35.0) 12/02/17 06:45 MCHC 31.3 g/dl (31.0-37.0) 12/02/17 06:45 RDW 12.8 % (11.5-14.5) 12/02/17 06:45 Plt Count 381 10^3/uL (120.0-450.0) 12/02/17 06:45 MPV 9.0 fl (7.0-11.0) 12/02/17 06:45 Gran % 72.9 % (50.0-68.0) H 12/02/17 06:45 Lymph % (Auto) 14.8 % (22.0-35.0) L 12/02/17 06:45 Labette % (Auto) 9.4 % (1.0-6.0) H 12/02/17 06:45 Eos % (Auto) 2.7 % (1.5-5.0) 12/02/17 06:45 Baso % (Auto) 0.2 % (0.0-3.0) 12/02/17 06:45 Gran # 7.62 (1.4-6.5) H 12/02/17 06:45 Lymph # (Auto) 1.6 (1.2-3.4) 12/02/17 06:45 Labette # (Auto) 1.0 (0.1-0.6) H 12/02/17 06:45 Eos # (Auto) 0.3 (0.0-0.7) 12/02/17 06:45 Baso # (Auto) 0.02 K/mm3 (0.0-2.0) 12/02/17 06:45 pO2 87 mm/Hg (30-55) H 11/27/17 20:27 VBG pH 7.48 (7.32-7.43) H 11/27/17 20:27 VBG pCO2 36.0 (40-60) L 11/27/17 20: VBG HCO3 26.8 mmol/l (21-28) 11/27/17 20:27 VBG Total CO2 27.9 mmol.L (22-28) 11/27/17 20:27 VBG O2 Sat (Calc) 98.2 % (40-65) H 11/27/17 20:27 VBG Base Excess 3.4 mmol/L (0.0-2.0) H 11/27/17 20:27 VBG Potassium 3.9 mmol/L (3.6-5.2) 11/27/17 20:27 Sodium 134.0 mmol/L (132-148) 11/27/17 20:27 Chloride 102.0 mmol/L (98-107) 11/27/17 20:27 Glucose 145 mg/dl (65-105) H 11/27/17 20:27 Lactate 1.6 mmol/L (0.7-2.1) 11/27/17 20: FiO2 21.0 % 11/27/17 20: Sodium 140 mmol/L (132-148) 12/02/17 06:45 Potassium 3.9 mmol/L (3.6-5.0) 12/02/17 06:45 Chloride 109 mmol/L (98-107) H 12/02/17 06:45 Carbon Dioxide 24 mmol/L (21-33) 12/02/17 06:45 Anion Gap 11 (10-20) 12/02/17 06:45 BUN 11 mg/dL (7-21) 12/02/17 06:45 Creatinine 0.8 mg/dl (0.7-1.2) 12/02/17 06:45 Est GFR ( Amer) > 60 12/02/17 06:45 Est GFR (Non-Af Amer) > 60 12/02/17 06:45 Random Glucose 112 mg/dL (70-110) H 12/02/17 06:45 Calcium 8.9 mg/dL (8.4-10.5) 12/02/17 06:45 Phosphorus 4.1 mg/dL (2.5-4.5) 12/02/17 06:45 Magnesium 2.3 mg/dL (1.7-2.2) H 12/02/17 06:45 Total Bilirubin 0.7 mg/dL (0.2-1.3) 12/02/17 06:45 AST 47 U/L (14-36) H 12/02/17 06:45 ALT 37 U/L (7-56) 12/02/17 06:45 Alkaline Phosphatase 326 U/L (38-126) H 12/02/17 06:45 Total Protein 6.9 g/dL (5.8-8.3) 12/02/17 06:45 Albumin 3.3 g/dL (3.0-4.8) 12/02/17 06:45 Globulin 3.7 gm/dL 12/02/17 06:45 Albumin/Globulin Ratio 0.9 (1.1-1.8) L 12/02/17 06:45 Lipase 127 U/L (23-300) 11/27/17 20:20 Procalcitonin 0.42 NG/ML (0.19-0.49) 11/28/17 21:20 Venous Blood Potassium 3.9 mmol/L (3.6-5.2) 11/27/17 20:27 Urine Color Yellow (YELLOW) 11/28/17 03:00 Urine Appearance Sl cloudy (CLEAR) 11/28/17 03:00 Urine pH 6.0 (4.7-8.0) 11/28/17 03:00 Ur Specific [place] >= 1.030 (1.005-1.035) 11/28/17 03:00 Urine Protein 100 mg/dL (<30 mg/dL) H 11/28/17 03:00 Urine Glucose (UA) Negative mg/dL (NEGATIVE) 11/28/17 03:00 Urine Ketones Negative mg/dL (NEGATIVE) 11/28/17 03:00 Urine Blood Trace-intact (NEGATIVE) H 11/28/17 03:00 Urine Nitrate Negative (NEGATIVE) 11/28/17 03:00 Urine Bilirubin Negative (NEGATIVE) 11/28/17 03:00 Urine Urobilinogen 1.0 E.U./dL (<1 E.U./dL) H 11/28/17 03:00 Ur Leukocyte Esterase Negative Dominguez/uL (NEGATIVE) 11/28/17 03:00 Urine RBC 0 - 2 /hpf (0-2) 11/28/17 03:00 Urine WBC 0 - 2 /hpf (0-6) 11/28/17 03:00 Ur Epithelial Cells 3 - 4 /hpf (0-5) 11/28/17 03:00 Urine Bacteria Few (NEG) 11/28/17 03:00 HIV 1&2 Ag/Ab, 4th Gen Nonreactive (Nonreactive) 11/28/17 21:20 Ur L.pneumophila Ag Negative (NEGATIVE) 11/28/17 03:00 Ur Strep pneumoniae Ag Not detected (Not Detected) 11/28/17 03:00 Attending/Attestation - Attestation I have personally seen and examined this patient.: Yes I have fully participated in the care of the patient.: Yes I have reviewed all pertinent clinical information, including history, physical exam and plan: Yes Notes (Text): Patient seen and examined by me with resident at 1:20PM on 12/02/17 with resident. Case including discharge plan discussed with resident. Agree with above with following additions/corrections. Patient is a 56-year-old female with past medical history of GERD, gastritis, H. 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 Please see H&P for full details. Patient admitted with shortness of breath, hepatic mass, right sided hydronephrosis, transaminitis, and history of constipation. Abdominal ultrasound per radiologist showed heterogeneous 11.4 x 10 x 7.6 cm region of the right hepatic lobe, possibly mass; cholelithiasis, dilated common bile duct; peripancreatic lymph node measuring approximately 1.2 x 0.9 cm; fullness of the left renal collecting system; right renal cyst; splenomegaly. CT abdomen and pelvis per radiologist showed calcification of the wall of the gallbladder as well as multiple gallstones, no evidence of hydronephrosis, no acute intra- abdominal findings. HIDA scan per radiologist showed nonvisualization of the gallbladder consistent with acute cholecystitis. No hydronephrosis was seen though initially patient was admitted with this. ID was consulted. GI was consulted. Surgery was consulted. Per surgical team, patient needs further workup including colonoscopy and EGD and staging. No surgical intervention at this admission was recommended. Per GI, no need for any biliary intervention at this time. Shortness of breath improved. CT chest per radiologist showed no measurable tumor above the diaphragms, lower lobe infiltrates right greater than left are stable, upper lobe scarring/atelectasis detected; hepatomegaly, extensive tumor burden in the liver particularly the right hepatic lobe adjacent to the gallbladder fossa, there is incompletely visualized wayne hepatis tumor as well. Patient was continued on Zosyn and doxycycline. Patient was also found to have transaminitis likely secondary to liver mass. Paitent was found to have hypokalemia. Potassium was replaced. Patient was continued on miralax and senna for history of constipation. Patient was having bowel movements here. Patient is turkmen speaking. job placement specialist used for translation. Patient was feeling much better. Case was discussed with all consultants. Patient was cleared for discharge by all consultants on antibiotics with follow up with GI at [facility] [place]. On day of discharge, patient stated she was filling much better. Patient stated that abdominal pain had improved and patient did not feel short of breath. No nausea or vomiting. No chest pain or palpitations. No fevers or chills. No headaches or dizziness. No dysuria. No diarrhea or constipation. Patient tolerating diet. Physical exam: Gen: Awake and alert lying in bed in no acute distress HEENT: Normocephalic, atraumatic. Extraocular muscles intact, pupils equal reactive. No scleral icterus. Oropharynx is pink and moist. Neck is supple. Cardiovascular: Normal rhythm. Normal S1, S2. No murmurs, rubs, or gallops appreciated Pulmonary: Normal respiratory effort. Decreased breath sounds. No rhonchi, rales, or wheezing appreciated. Gastrointestinal: Soft, nondistended. Nontender. Positive bowel sounds all 4 quadrants, no guarding. Musculoskeletal: Moves all extremities. No calf tenderness. No edema appreciated. Central nervous system: AAO x 3. CN 2-12 grossly intact Dermatologic: Skin warm and dry Please see chart for full details. Follow up instructions: Patient to follow up PMD at [facility]. Number for appointment given. Patient to follow up with control clerk head at [facility], phone number for appointment given. Patient to complete all antibiotics. All instructions explained to patient in detail in [place]. Patient both understands and agrees to all instructions. Written instructions also given. Time spent in discharging the patient including chart review, medication reconciliation, discussion with the patient, medical lab technologist, consultants, and nursing staff was greater than 30 minutes.
== END 2017-12-02 17:23 | disposition home or self-care (01) | DRG 871 ==
LOC: ED 19:12 → ERH 23:45 → 5RSO 11-28 01:29
PROVIDERS: ADMIT Internal Medicine; ATTEND Internal Medicine
DX: A41.9 Sepsis, unspecified organism (principal); J18.9 Pneumonia, unspecified organism; C23 Malignant neoplasm of gallbladder; C78.7 Secondary malignant neoplasm of liver and intrahepatic bile duct; J90 Pleural effusion, not elsewhere classified; J98.11 Atelectasis; N13.30 Unspecified hydronephrosis; K80.00 Calculus of gallbladder with acute cholecystitis without obstruction; Y95 Nosocomial condition; D64.9 Anemia, unspecified; E87.6 Hypokalemia; K21.9 Gastro-esophageal reflux disease without esophagitis; K59.00 Constipation, unspecified; K74.60 Unspecified cirrhosis of liver; K82.8 Other specified diseases of gallbladder; Z90.710 Acquired absence of both cervix and uterus